=== PATIENT | female | born 1955 | race Caucasian/White ===

== ENCOUNTER 2023-06-12 12:30 | Emergency (ER) | payer MEDICARE, SELFPAY ==
[2023-06-12 13:06] VITALS: BP 117/83; PULSE 76; RESP 16; TEMP 37.6; O2SAT 100
--- NOTE | 2023-06-12 14:12 | ED.URI ---
HPI - URI/Sore Throat General Chief Complaint: Upper Respiratory Infection Stated Complaint: headache,sore throat Time Seen by Provider: 06/12/23 14:13 Source: patient and RN notes reviewed Mode of arrival: ambulatory Limitations: no limitations History of Present Illness HPI Narrative: 68-year-old female presented for complaint of headache, body aches, sinus pressure/congestion, cough, fever/chills. onset 3 days. Has not eaten since yesterday. But denies abdominal pain. Denies sob, wheezing, n/v/d. not taking anything for symptoms. States all symptoms are flaring up her fibromyalgia and she is requesting an antibiotic. MD elicited complaint: cough Related Data Home Medications Medication Instructions Recorded Confirmed ezetimibe 10 mg tablet 10 mg PO DAILY 06/12/23 06/12/23 meloxicam 15 mg tablet 15 mg PO DAILY 06/12/23 06/12/23 metaxalone 800 mg tablet 800 mg PO DAILY 06/12/23 06/12/23 montelukast 10 mg tablet 10 mg PO DAILY 06/12/23 06/12/23 pantoprazole 40 mg tablet,delayed 40 mg PO DAILY 06/12/23 06/12/23 release quetiapine 50 mg tablet 50 mg PO DAILY 06/12/23 06/12/23 sertraline 50 mg tablet 50 mg PO DAILY 06/12/23 06/12/23 Allergies Allergy/AdvReac Type Severity Reaction Status Date / Time indomethacin [From Indocin] Allergy Unknown Unknown Verified 06/12/23 14:26 Review of Systems Review of Systems: CONSTITUTIONAL: Endorses malaise, denies chills, sweats, fever EYES: Denies visual changes, redness, or discharge ENT: Reports rhinorrhea, congestion,denies otalgia, sore throat CARDIOVASCULAR: Denies chest pain, palpitations, edema RESPIRATORY: Reports cough, post nasal drainage. Denies dyspnea GASTROINTESTINAL: Denies abdominal pain, nausea, vomiting, diarrhea SKIN: Denies rash or itching MUSCULOSKELETAL: Endorses myalgia NEUROLOGIC: Endorses headache [facility] Past Medical History Medical History (Updated 06/12/23 @ 14:55 by Raeann Hernandez APRN) Anxiety Depression Fibromyalgia GERD (gastroesophageal reflux disease) Seasonal allergies Exam Narrative: GENERAL: mildly Ill-appearing, nontoxic no acute distress. EYES: conjunctivae clear ENT: Mucous membranes moist. TM pearly ge with dull light reflex bilaterally; no tragal tenderness. Oropharynx not erythematous without lesions or exudate NECK: Supple. No lymphadenopathy CHEST: Clear to auscultation, breath sounds equal. No wheezing, rhonchi, rales, or stridor. No respiratory distress, speaks in full sentences. HEART: Regular rate and rhythm. No murmur heard. SKIN: Warm, dry, no rash. NEURO: Alert and oriented x3. PSYCH: Normal mood and affect Course Course Emergency Course: Patient is aware of diagnosis, understands and agrees to treatment plan. Anticipatory guidance given. Patient agrees to follow-up as directed and is aware of reasons to seek care at the emergency department. Portions of this record may have been created with voice recognition software Level of Care: Express Care Visit Vital Signs Vital signs: Vital Signs Temperature 99.6 F 06/12/23 13:06 Pulse Rate 76 06/12/23 13:06 Respiratory Rate 16 06/12/23 13:06 Blood Pressure 117/83 06/12/23 13:06 Pulse Oximetry 100 06/12/23 13:06 Oxygen Delivery Room Air 06/12/23 13:06 Temperature 99.6 F 06/12/23 13:06 Pulse Rate 76 06/12/23 13:06 Respiratory Rate 16 06/12/23 13:06 Blood Pressure 117/83 06/12/23 13:06 Pulse Oximetry 100 06/12/23 13:06 Oxygen Delivery Room Air 06/12/23 13:06 reviewed MDM - URI/Sore Throat MDM Narrative Medical decision making narrative: negative COVID and flu Results reviewed with patient. Discussed physical exam findings. She is advised symptoms are likely viral rx abx to start if symptoms persist or worsen after 7-10 days. Advised supportive measures and signs/symptoms to go to the ER. Pt is appropriate for outpt treatment and f/u. Differential Diagnosis Differential diagnosis: Likely upp
== END 2023-06-12 14:57 | disposition home or self-care (01) ==
PROVIDERS: Emergency Provider Nurse Practitioner Family; PCP Family Medicine
DX: J06.9 Acute upper respiratory infection, unspecified (principal); F41.9 Anxiety disorder, unspecified; F32.A Depression, unspecified; Z79.899 Other long term (current) drug therapy; Z79.1 Long term (current) use of non-steroidal anti-inflammatories (NSAID); Z20.822 Contact with and (suspected) exposure to COVID-19
CPT/HCPCS: 87426; 87804; 99213; C9803; G0463

== ENCOUNTER 2023-11-11 13:27 | Outpatient (CLI) | payer MEDICARE, SELFPAY ==
[2023-11-11 13:39] LABS: Basophils Absolute Auto 0.1 K/mm3 (0.0-0.1); Basophils Percent Auto 0.7 % (0.2-1.2); Eosinophils Absolute Auto 0.2 K/mm3 (0-0.3); Eosinophils Percent Auto 2.7 % (0-4.4); Hematocrit 40.8 % (37.0-47.0); Hemoglobin 13.3 g/dL (12.0-15.0); Immature Granulocyte Absolute 0.02 K/mm3 (0.00-0.031); Immature Granulocyte Percent A 0.2 % (0-0.5); Lymphocytes Absolute Auto 2.21 K/mm3 (0.9-3.2); Lymphocytes Percent Auto 27.1 % (18.3-44.2); Mean Corpuscular HGB Conc 32.6 g/dl (32-36); Mean Corpuscular Hemoglobin 28.9 pg (26-34); Mean Corpuscular Volume 88.5 fl (80-100); Monocytes Absolute Auto 0.6 K/mm3 (0.1-0.6); Monocytes Percent Auto 7.7 % (2.6-8.5); Neutrophils Percent Auto 61.6 % (45.5-73.1); Platelet Count Result 326 k/mm3 (150-375); Red Blood Count 4.61 M/mm3 (4.2-5.4); Red Cell Distribution Width 13.3 % (11.5-14.5); White Blood Count 8.2 K/mm3 (4.5-10.0)
--- NOTE | 2023-11-11 13:46 | ECG_ITS ---
SEE SCANNED COPY FOR CONFIRMED REPORT MTDD
[2023-11-11 15:05] LABS: Alanine Aminotransferase 23 U/L (6-35); Albumin Level 4.4 g/dL (3.5-5.1); Alkaline Phosphatase 66 U/L (38-126); Anion Gap 10 mmol/L (4-12); Aspartate Amino Transferase 30 U/L (14-36); Bilirubin,Total 0.5 mg/dL (0.2-1.3); Blood Urea Nitrogen 27 mg/dL (7-17); Calcium 9.2 mg/dL (8.4-10.2); Carbon Dioxide 24 mmol/L (22-30); Chloride 107 mmol/L (98-107); Estimated Glomerular Filt Rate > 60; Glucose 124 mg/dL (65-110); Potassium 4.2 mmol/L (3.4-5.0); Sodium 141 mmol/L (137-145)
[2023-11-11 16:26] LABS: Vitamin D 25 Hydroxy 53.2 ng/mL
== END 2023-11-11 13:28 | disposition home or self-care (01) ==
LOC: ANHLAB 13:28
PROVIDERS: PCP Family Medicine; Visit Provider Physician Assistant Medical
DX: R53.83 Other fatigue (principal); E78.2 Mixed hyperlipidemia; E55.9 Vitamin D deficiency, unspecified; F41.9 Anxiety disorder, unspecified
CPT/HCPCS: 36415; 80053; 82306; 84443; 85025; 93005

== ENCOUNTER 2023-12-15 15:32 | Emergency (ER) | payer MEDICARE, SELFPAY ==
--- NOTE | ~2023-12-15 | XR_ITS ---
EXAMINATION: XR chest 2V DATE: 12/15/2023 16:00 INDICATION: Chest pain. TECHNIQUE: Frontal and lateral views of the chest were obtained. COMPARISON: None. FINDINGS: There is no pneumonia, pleural effusion, or pneumothorax. The heart size is normal. IMPRESSION: 1. No acute cardiopulmonary disease. Reviewed, dictated and finalized at location A.
--- NOTE | 2023-12-15 15:33 | ECG_ITS ---
Test Date: 2023-12-15 15:45:16 Measurements Intervals [place] Rate: 65 P: 12 RI: 156 QRS: -1 QRSD: 84 T: 29 QT: 376 QTc: 391 Interpretive Statements SINUS RHYTHM NORMAL ELECTROCARDIOGRAM No previous ECG available for comparison Electronically Signed On 12-16-2023 07:19:51 CDT by Kenan Burdick M.D.
[2023-12-15 16:00] LABS: Basophils Absolute Auto 0.1 K/mm3 (0.0-0.1); Basophils Percent Auto 0.7 % (0.2-1.2); Eosinophils Absolute Auto 0.2 K/mm3 (0-0.3); Eosinophils Percent Auto 2.2 % (0-4.4); Hematocrit 44.1 % (37.0-47.0); Hemoglobin 14.6 g/dL (12.0-15.0); Immature Granulocyte Absolute 0.03 K/mm3 (0.00-0.031); Immature Granulocyte Percent A 0.4 % (0-0.5); Lymphocytes Absolute Auto 1.87 K/mm3 (0.9-3.2); Lymphocytes Percent Auto 21.9 % (18.3-44.2); Mean Corpuscular HGB Conc 33.1 g/dl (32-36); Mean Corpuscular Hemoglobin 29.1 pg (26-34); Mean Platelet Volume 10.1 fl (7.4-10.4); Monocytes Absolute Auto 0.6 K/mm3 (0.1-0.6); Monocytes Percent Auto 6.9 % (2.6-8.5); Neutrophils Absolute Auto 5.8 K/mm3 (1.3-6.7); Neutrophils Percent Auto 67.9 % (45.5-73.1); Platelet Count Result 371 k/mm3 (150-375); Red Blood Count 5.01 M/mm3 (4.2-5.4); Red Cell Distribution Width 12.9 % (11.5-14.5); White Blood Count 8.5 K/mm3 (4.5-10.0)
[2023-12-15 16:08] VITALS: BP 148/110; PULSE 60; RESP 20; TEMP 36.1; O2SAT 97
[2023-12-15 16:10] LABS: Alanine Aminotransferase 26 U/L (6-35); Albumin Level 4.7 g/dL (3.5-5.1); Alkaline Phosphatase 84 U/L (38-126); Anion Gap 7 mmol/L (4-12); Aspartate Amino Transferase 27 U/L (14-36); Bilirubin,Total 0.5 mg/dL (0.2-1.3); Blood Urea Nitrogen 17 mg/dL (7-17); Calcium 9.9 mg/dL (8.4-10.2); Carbon Dioxide 24 mmol/L (22-30); Chloride 107 mmol/L (98-107); Estimated Glomerular Filt Rate > 60; Glucose 101 mg/dL (65-110); Lipase 111 U/L (23-300); Potassium 3.9 mmol/L (3.4-5.0); Sodium 138 mmol/L (137-145)
[2023-12-15 16:11] LABS: Partial Thromboplastin Time 25.9 Seconds (22.3-36.8); Prothrombin Time 13.6 Seconds (11.1-14.7)
[2023-12-15 16:21] LABS: Troponin I < 0.012 ng/mL (0.000-0.034)
--- NOTE | 2023-12-15 19:00 | ECG_ITS ---
Test Date: 2023-12-15 19:00:36 Measurements Intervals [place] Rate: 60 P: 9 CO: 170 QRS: -1 QRSD: 80 T: 16 QT: 392 QTc: 394 Interpretive Statements SINUS RHYTHM NORMAL ELECTROCARDIOGRAM Compared to ECG 12/15/2023 15:45:16 No significant changes Electronically Signed On 12-16-2023 15:42:42 CDT by Kenan Burdick M.D.
--- NOTE | 2023-12-15 19:12 | ED.ARRPALP ---
HPI - Arrhythmia/Palpitations General Chief Complaint: Arrhythmia/Palpitations Stated Complaint: palpitations Time Seen by Provider: 12/15/23 19:11 History of Present Illness HPI narrative: Patient is a 68-year-old female who presents to the emergency department this evening with multiple complaints. Patient states that she has been having palpitations for the past 3 weeks adverse since stopping her anti depressant medication. Patient states that the palpitations have improved in the past 3 weeks but she is still having intermittent headaches, nausea, upset stomach, loss of appetite and insomnia. Patient saw her primary care physician this morning and she was informed that all of these are side effects to her stopping her antidepressant medication and should get better with time. Despite this, patient still wanted a 2nd opinion and wanted to make sure nothing else was wrong so she decided to come to the emergency department for further evaluation. She is currently denying any chest pain or shortness of breath, any focal weakness, numbness and tingling. No additional symptoms or concerns at this time. Related Data Home Medications Medication Instructions Recorded Confirmed ezetimibe 10 mg tablet 10 mg PO DAILY 06/12/23 11/25/23 meloxicam 15 mg tablet 15 mg PO DAILY 06/12/23 11/25/23 metaxalone 800 mg tablet 800 mg PO DAILY 06/12/23 11/25/23 quetiapine 50 mg tablet 50 mg PO DAILY 06/12/23 11/25/23 Allergies Allergy/AdvReac Type Severity Reaction Status Date / Time indomethacin [From Indocin] Allergy Unknown Unknown Verified 12/15/23 16:12 duloxetine AdvReac Severe Hallucinati Verified 12/15/23 16:12 ng Review of Systems Review of Systems: All systems are reviewed and are negative unless stated otherwise in the HPI. [facility] Past Medical History Medical History Anxiety Depression Fibromyalgia GERD (gastroesophageal reflux disease) Mixed hyperlipidemia Seasonal allergies Surgical History Surgical History History of knee replacement Social History Social History Smoking status: Never smoker Exam Narrative: General: Alert, awake, afebrile, in no acute distress. HEENT: PERRL, no rhinorrhea, no post nasal drip, oropharynx clear. Cardiovascular: Regular rate and rhythm, no murmurs, rubs or gallops, no peripheral edema. Respiratory: Clear to auscultation bilaterally, no tachypnea, no wheezing, no rhonchi, no rubs, no respiratory distress. Abdomen: Soft, nontender, nondistended, no rebound, no guarding, no peritoneal signs. Musculoskeletal: No joint swelling or deformity, normal muscle tone. Skin: No rashes or petechia, no signs of infection. Neurological: Alert and oriented to person, place, and time. Follows all commands. No focal deficits, speech is clear and fluent. Course Vital Signs Vital signs: Vital Signs Temperature 96.9 F L 12/15/23 16:08 Pulse Rate 60 12/15/23 16:08 Respiratory Rate 20 12/15/23 16:08 Blood Pressure 148/110 H 12/15/23 16:08 Pulse Oximetry 97 12/15/23 16:08 Oxygen Delivery Room Air 12/15/23 16:08 Temperature 96.9 F L 12/15/23 16:08 Pulse Rate 60 12/15/23 16:08 Respiratory Rate 20 12/15/23 16:08 Blood Pressure 148/110 H 12/15/23 16:08 Pulse Oximetry 97 12/15/23 16:08 Oxygen Delivery Room Air 12/15/23 16:08 MDM - Arrhythmia/Palpitations MDM Narrative Medical decision making narrative: The patient was evaluated by myself in the emergency department. History is obtained from patient who is an independent historian and physical exam was performed. External medical records were reviewed at this time. IV was established and pertinent tests were ordered. EKG was obtained which revealed sinus rhythm rate of 65 beats per minute. No ST changes, T wave inversions or hosea
[2023-12-15 19:27] LABS: Troponin I < 0.012 ng/mL (0.000-0.034)
[2023-12-15 20:00] VITALS: BP 157/76; PULSE 89; RESP 18; O2SAT 98
== END 2023-12-15 20:04 | disposition home or self-care (01) ==
PROVIDERS: Emergency Medicine; Emergency Provider Emergency Medicine; PCP Family Medicine
DX: F41.9 Anxiety disorder, unspecified (principal); E78.2 Mixed hyperlipidemia; F32.A Depression, unspecified; Z79.899 Other long term (current) drug therapy
CPT/HCPCS: 36415; 71046; 80053; 83690; 84484; 85025; 85610; 85730; 93005; 99284

== ENCOUNTER 2025-01-02 14:32 | Outpatient (CLI) | payer MEDICARE, SELFPAY ==
--- OUTSIDE RECORDS SUMMARY | 2025-01-02 14:37 | XMS_ITS | Encounter Summary ---
Author Organization [facility] Address [address] [place] [address] Care Team Providers Care Band Top Maker Name Role Phone Radha Vanegas MD Primary Care Provider Encounter Details Date Type Department Care Team (Late st Contact Info) Description 09/03/2024 [employer] Message [facility] Patient Accounts [address] [place] [address] [facility] Social History Tobacco Use Types Packs/Day Years Used Date Smoking Tobacco: Never Smokeless Tobacco: Never Comments:na Alcohol Use Standard Drinks/Week Comments Not Currently 0 (1 standard drink = 0.6 oz pur e alcohol) OASIS D0700: Social Isolation Answer Da te Recorded Frequency of experiencing loneliness or isolatio n Often 05/23/2024 OASIS A1250: Transportation Answer Date Recorded Lack of Transportation (Medical) No 05/23/2024 Lack of Transportation (Non-Medical) No 05/23/2024 Patient Unable or Declines to Respond No 05/23/2024 OASIS B1300: Health Literacy Answer Cameron e Recorded Frequency of needing help to read materials from doctor or pharmacy Never 05/23/2024 PHQ-2 Answer Date Recorded Patient Health Questionnaire-2 Score 1 05/25/2024 Comments No Sex and Gender Information Value Date Recorded Sex Assigned at Female 07/03/2024 1:23 PM [employer] Legal Sex Female 5:45 PM CDT Gender Identity Female 10/03/2024 9:02 AM CDT Sexual Orientation Straight 10/03/2024 9: 02 AM CDT documented as of this encounter Functional Status * RETIRED Are you deaf or do you have serious difficulty hearing Answer Date of Assessment Author Status No 07/13/2022 2:00 PM INDUSTRIAL HYGENIST Activ e * RETIRED Are you blind or do you have serious difficulty seeing, even when wearing glasses? Answer Date of Assessment Author Status No 07/13/2022 2:00 PM INDUSTRIAL HYGENIST Activ e * Do you have serious difficulty walking or climbing stairs? Answer Date of Assessment Author Status No 07/13/2022 2:00 PM Unique Orellana RN Active * Do you have difficulty dressing or bathing? Answer Date of Assessment Author Status No 07/13/2022 2:00 PM Unique Orellana RN Active * Because of a physical, mental, or emotional condition, do you have difficulty doing errands alone such as visiting a doctor's office or shopping? Answer Date of Assessment Author Status No 07/13/2022 2:00 PM Unique Orellana RN Active documented as of this encounter Mental Status * Because of a physical, mental, or emotional condition, do you have serious difficulty concentrating, remembering, or making decisions? Answer Entry Date Author Status No 07/13/2022 2:00 PM Unique Orellana RN Active documented in this encounter Plan of Treatment Upcoming Encounters Date Type Department Care Team (Late st Contact Info) Description 01/17/2025 4:00 PM CDT Office Visit [facility] [address] [place] [address] [place] [address] [place] [address] documented as of this encounter Visit Diagnoses Not on filedocumented in this encounter Additional Health Concerns Infection Onset Date Last Indicated Resolved Time 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 09/17/2024 09/17/2024 Assessment Noted Time PHQ-9 Depression Total Score: 1 05/25/20 24 2:28 PM INDUSTRIAL HYGENIST documented as of this encounter Care Teams Band Top Maker Relationship Specialty Start Date End Date Radha Vanegas MD [address] [place] [address] PCP - General FAMILY PRACTICE 11/01/23 documented as of this encounter
--- OUTSIDE RECORDS SUMMARY | 2025-01-02 14:37 | XMS_ITS | Clinical Summary ---
Author Organization [facility] Address [address] [place] [address] Care Team Providers Care Snuff Drier Name Role Phone Radha Vanegas MD Primary Care Provider [phone] Allergies Active Allergy Reactions Criticality Noted Date Comments Duloxetine Other (see comment),Hallucinations Low 11/18/2022 Mental status changes Erythromycin GI Upset,Nausea and Vomiting,Vomiting Low 09/28/2012 Reaction: Vomiting, Sulfa Antibiotics Myalgias Medium 12/04/2015 Medications * This document contains information received from the source organization and may not represent a complete record from that organization. ezetimibe (ZETIA) 10 MG tabletIndication s:Blood Cholesterol Abnormal Take 1 tablet (10 mg total) by mouth daily. Indications: Blood Cholesterol Abnormal 2 Active metaxalone (SKELAXIN) 800 MG tabletIndication s:Muscle Spasm Take 1 tablet (800 mg total) by mouth 3 (three) times daily as needed for Pain. Indications: Muscle Spasm 2 Active QUEtiapine (SEROQUEL) 25 MG tabletIndication s:Severe Depression Take 0.5 tablets (12.5 mg total) by mouth nightly at bedtime. Indications: Severe Depression Active Cholecalciferol (VITAMIN D-3) 25 MCG (1000 UT) CapIndications:O steoarthritis Take 1 tablet by mouth 2 (two) times daily. Indications: Joint Damage causing Pain and Loss of Function Active venlafaxine XR (EFFEXOR-XR) 150 MG 24 hr capsule Take 1 capsule (150 mg total) by mouth daily. 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 We'll see her back in six weeks for a repeat evaluation. Sooner if she's having any issues. S/P total knee arthroplasty 09/19/2024 Chronic pain of right knee 05/27/2024 Atherosclerosis of aorta 10/13/2023 Overview (09/18/2024): 07.06.2022 Chest XR Atherosclerotic aorta PVC's (premature ventricular contractions) 09/19 Severe episode of recurrent major depressive disorder, without psychotic features (CMS/HCC HHS/HCC) 12/12/2022 Major depressive disorder wi th current active episode, unspecified depression episode severity, unspecified whether recurrent 12/10/2022 Labial lesion 10/15/2022 Overview (09/18/2024): Last Assessment & Plan: Benign appearing papules present on bilateral labia, recommended further evaluation with gynecology. Patient will call to schedule follow up with Picture Frames Inspector, referral placed. Status post total knee replacement, left 023 Overview (09/18/2024): 07/13/2022 07/13/2022 Last Assessment & Plan: Our recommendation at this time is gradually increase her activities as tolerated. We'll give her position and directed exercises. At her request, we'll see her back as needed. Assessment & Plan (10/18/2022 5:20 PM CDT): Our recommendation at this time is gradually increase her activities as tolerated. We'll give her position and directed exercises. At her request, we'll see her back as needed. Assessment & Plan (08/23/2022 12:33 PM LOOM CHECKER): The patient will follow up in 3 months. She will finish up physical therapy 08/24/2022. Assessment & Plan (07/26/2022 12:35 PM LOOM CHECKER): The patient is encouraged to use Vit E oil, cocoa butter, and/or scar cream to assist in healing and mobility. Patient will continue pain medication as needed. She will start going to outpatient physical therapy next week. The patient will follow-up in 4 weeks with an XR. BMI 26.0-26.9,adult 06/11/2022 Assessment & Plan (06/11/2022 8:38 PM LOOM CHECKER): We discussed the adverse effects of weight on osteoarthritis. For every 1 pound loss, 4 to 6 pounds of stress is relieved from the knee, slightly more at the ankle and slightly less at the hip. Primary osteoarthritis of right knee 06/08/2022 Overview (09/18/2024): Added automatically from request for surgery [id number] Last Assessment & Plan: Scheduled for surgery with Dr. Magaña 07/13/22. Added automatically from request for surgery [id number] Last Assessment & Plan: We discussed the risks, benefits and alternatives. The only thing proven to slow the progression of osteoarthritis is weight loss. Every pound lost relieves 4 to 6 pounds of stress across the knee. We discussed unloading braces. Formal physical therapy to help with flexibility, mobility and strength. We discussed TENS units. Nonsteroidal anti-inflammatories as well as Tylenol and pain medication and their side effects. We discussed steroid versus Visco supplement injection. We discussed eventual total knee arthroplasty. Failed nonsteroidal anti-inflammatories Failed steroid injection Failed viscosupplementation Failed stem cells Failed PRP Failed physician directed exercise Pain interfering with activities of daily living We discussed standard instrumentation, patient specific cutting blocks and Gato robot assisted total knee arthroplasty. Going over the risks, benefits and alternatives patient is scheduled for Gato robot assisted knee arthroplasty left 07/13/2021 Added automatically from request for surgery [id number] Assessment & Plan (05/27/2024 10:29 AM LOOM CHECKER): We discussed the risks, benefits, and alternatives. The only thing proven to slow the progression of osteoarthritis is weight loss. Every pound lost relieves 4 to 6 pounds of stress across the knee. We discussed unloading braces. Formal physical therapy to help with flexibility, mobility, and strength. We discussed TENS units. Nonsteroidal anti-inflammatories as well as Tylenol and pain medication and their side effects. We discussed steroid versus Visco supplement injection. We discussed eventual total knee arthroplasty. Failure of nonoperative treatment. Recommendation at this time, her total knee on the left is doing quite well. She is wanting to proceed with Gato robot-assisted total knee arthroplasty on the right. We'll try to get her set up. She had her steroid injection on 04/16/24, so she would like to proceed on 07/17/24. Assessment & Plan (04/17/2024 5:11 PM CDT): We discussed the risks, benefits, and alternatives. The only thing proven to slow the progression of osteoarthritis is weight loss. Every pound lost relieves 4 to 6 pounds of stress across the knee. We discussed unloading braces. Formal physical therapy to help with flexibility, mobility, and strength. We discussed TENS units. Nonsteroidal anti-inflammatories as well as Tylenol and pain medication and their side effects. We discussed steroid versus Visco supplement injection. We discussed eventual total knee arthroplasty. Recommendation at this time, a steroid was injected into the right knee. She is not ready for a total knee arthroplasty at this point in time. Get her pre-approved for a viscosupplement. We'll see her back after the approval for the viscosupplement. Primary osteoarthritis of left knee 06/08/2022 Overview (06/08/2022): Added automatically from request for surgery [id number] Assessment & Plan (06/11/2022 8:37 PM LOOM CHECKER): We discussed the risks, benefits and alternatives. The only thing proven to slow the progression of osteoarthritis is weight loss. Every pound lost relieves 4 to 6 pounds of stress across the knee. We discussed unloading braces. Formal physical therapy to help with flexibility, mobility and strength. We discussed TENS units. Nonsteroidal anti-inflammatories as well as Tylenol and pain medication and their side effects. We discussed steroid versus Visco supplement injection. We discussed eventual total knee arthroplasty. Failed nonsteroidal anti-inflammatories Failed steroid injection Failed viscosupplementation Failed stem cells Failed PRP Failed physician directed exercise Pain interfering with activities of daily living We discussed standard instrumentation, patient specific cutting blocks and Gato robot assisted total knee arthroplasty. Going over the risks, benefits and alternatives patient is scheduled for Gato robot assisted knee arthroplasty left 07/13/2021 Hypoglycemia 06/08/2022 Overview (06/08/2022): Added automatically from request for surgery [id number] Allergies 06/08/2022 Overview (09/18/2024): Added automatically from request for surgery [id number] Added automatically from request for surgery [id number] Bilateral primary osteoarthritis of knee 021 Overview (09/18/2024): Last Assessment & Plan: Continues meloxicam use. Following with ortho for injections as needed. Amaurosis fugax of left eye 08/03/2018 Subjective visual disturbance 08/03/2018 Visual problems 08/01/2018 Scaly patch rash 07/12/2018 Overview (09/18/2024): Last Assessment & Plan: Sporadic small scaly dry red patches on various parts of body since Summer (7 months). They do not itch, not painful. Denies fever, joint pain. Does have hx of Fibromyalgia. Has been using nystatin/kenalog cream with improvement but would like to know why they keep coming up. Small single macular and papular Fine scaly lesion with rough surface-no pain or tenderness, do not itch-random areas on her body, different sizes from 1-2 cm circular and different shades of pink to red on trunk, lower extremities- only found 5-6 of them on her body. 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 She did state it does help but the lesions keep randomly appear and she is frustrated with it. Can try OTC Topical antifungal Selenium sulfide 1% (Selsun Blue and Ketoconazole or Selsun 2.5 % lotion Will try oral Fluconazole Irritable bowel syndrome with diarrhea 6 De Quervain's tenosynovitis 03/17/2015 Fibromyalgia 02/20/2015 Overview (06/08/2022): Added automatically from request for surgery [id number] Temporomandibular joint disorder 01/21/2012 Mixed hyperlipidemia 09/21/2011 Primary localized osteoarthrosis, lower leg 07/22 Moderate episode of recurrent major depressive d isorder 03/26/2011 Disorder of bone and cartilage 11/29/2008 Sicca syndrome (HHS/HCC) 05/30/2008 Actinic keratosis 07/13/2007 Gastroesophageal reflux disease without esophagi tis 07/13/2007 Bunion 03/06/2007 Migraine with aura and witho ut status migrainosus, not intractable 09/06/2006 Resolved Problems Problem Noted Date Diagnosed Date Resolved Date Encounter for preoperative e xamination for general surgical procedure 07/01/2022 09/24/2024 Screening for hyperlipidemia 04/15/2017 09/24/2024 Encounters Date Type Department Care Team Description 11/28/2024 Scan HEALTH INFO SRVCS Scanned, Doc Med Group 11/15/2024 1:40 PM CDT [facility] [id number] [place] [id number] Esteban Magaña DO Postop Followup (Right TKR 09/18/24) 11/15/2024 Travel 11/13/2024 Scan MG HEALTH INFO SRVCS Scanned, Doc Med Group 10/22/2024 Scan MG HEALTH INFO SRVCS Scanned, Doc Med Group 10/16/2024 Telephone [facility] [id number] [place] [phone] Jase Schaeffer NP Question (Pt. called to have us send her PT referral to [facility], Pt has a PT appointment for 10/22/24 with M, Per pt. M wants her to bring in the referral but it was sent over, explained the the appointment couldn't have been made without having the referral, and that we had sent the referral to [facility], Pt. Extremely angry and cussing at staff. ) 10/15/2024 Telephone [facility] Orthopedic [facility] [address] [place] [address] Esteban Magaña, DO Question 10/11/2024 Telephone [facility] [address] [place] [address] Jase Schaeffer, POCKET SETTER LOCKSTITCH Information 10/11/2024 Telephone [facility] Orthopedic [facility] [address] [place] [phone] Esteban Magaña, DO Referral 10/11/2024 Telephone [facility] Orthopedic Surgery [facility] [address] [place] [phone] Esteban Magaña, DO Orders 10/10/2024 Telephone [facility] Orthopedic Surgery [facility] [address] [place] [address] Esteban Magaña, DO Information 10/10/2024 Telephone [facility] Orthopedic Surgery [facility] [address] [place] [id number] Esteban Magaña, DO Question 10/09/2024 Telephone [facility] Orthopedic [facility] [address] [place] [address] Esteban Magaña, DO Physical Therapy ([facility] Called to let us known she is denied for home health PT due to being at capacity for that insurance) 10/05/2024 Telephone [facility] Orthopedic Surgery [facility] [address] [place] [phone] Esteban Magaña, DO Question 10/03/2024 8:40 AM CDT Office [facility] [address] [place] [address] Jase Schaeffer, PER Postop Followup (Right TKR 09/18/24) 10/03/[address] [place] [address] [place] [address] Jase Schaeffer NP Advise 10/03/2024 Travel from Last 3 Months Family History Medical History Relation Comments Diabetes Father ? Relation Status Comments Father Alive Maternal Grandfather Maternal Grandmother Paternal Grandfather Paternal Grandmother Social History Tobacco Use Types Packs/Day Years Used Date Smoking Tobacco: Never Smokeless Tobacco: Never Tobacco Cessation:Counseling Given: No Comments:na Alcohol Use Standard Drinks/Week Comments Not [...] materials from doctor or pharmacy Never 05/23/2024 [facility] Utilities Answer Date Recorded In the past 12 months has [facility] [employer], gas, oil, or water [employer] threatened to shut off services in your home? No 09/20/2024 Humiliation, Afraid, Rape, and Kick questionnair e Answer Date Recorded Within the last year, have y ou been afraid of your partner or ex-partner? No 09/20/2024 Within the last year, have y ou been humiliated or emotionally abused in other ways by your partner or ex-partner? No Within the last year, have y ou been kicked, hit, slapped, or otherwise physically hurt by your partner or ex-partner? No 09/20/2024 Within the last year, have y ou been raped or forced to have any kind of sexual activity by your partner or ex-partner? No 09/20/2024 Overall Financial Resource Strain (CARDIA) Answe r Date Recorded How hard is it for you to pa y for the very basics like food, housing, medical care, and heating? Not hard at all 09/20/2024 PHQ-2 Answer Date Recorded Patient Health Questionnaire-2 Score 1 10/03/2024 Hunger Vital Sign Answer Date Recorded Within the past 12 months, y ou worried that your food would run out before you got the money to buy more. Never true 09/21/19 25 Within the past 12 months, t he food you bought just didn't last and you didn't have money to get more. Never true 09/20/2024 PRAPARE - Transportation Answer Date Re corded In the past 12 months, has l ack of transportation kept you from medical appointments or from getting medications? No 08/2024 In the past 12 months, has l ack of transportation kept you from meetings, work, or from getting things needed for daily living? No 09/20/2024 Housing Stability Vital Sign Answer Cameron e Recorded In the last 12 months, was t here a time when you were not able to pay the mortgage or rent on time? No 09/20/2024 In the past 12 months, how m any times have you moved where you were living? 0 09/20/2024 At any time in the past 12 m [facility], were you homeless or living in a retirement (including now)? No 09/20/2024 Comments No Sex and Gender Information Value Date Recorded Sex Assigned at Female 07/03/2024 1:23 PM LOOM CHECKER Legal Sex Female 5:45 PM CDT Gender Identity Female 10/03/2024 9:02 AM CDT Sexual Orientation Straight 10/03/2024 9: 02 AM CDT Last Filed Vital Signs Vital Sign Reading Time Taken Comments Blood Pressure 134/78 11/15/2024 2:02 PM CDT Pulse 85 11/15/2024 2:02 PM CDT Temperature 36 C (96.8 F) 11/15/2024 2:02 PM CDT Respiratory Rate 18 09/20/2024 4:25 PM CDT Oxygen Saturation 96% 11/15/2024 2:02 PM CDT Inhaled Oxygen Concentration - - Weight 68.8 kg (151 lb 9.6 oz) 11/15/2024 2:02 P M CDT Height 160 cm (5' 3) 11/15/2024 2:02 PM CDT Body Mass Index 26.85 11/15/2024 2:02 PM CDT Plan of Treatment Upcoming Encounters Date Type Department Care Team (Late st Contact Info) Description 01/17/2025 4:00 PM CDT Office Visit [facility] [address] [place] [address] [place] [phone] [place] [address] Health Maintenance Due Date Last Done Comments ASCVD LDL 1954 ASCVD Statin 1954 Colorectal Cancer Screening Colonoscopy (10 Years) 1954 Hepatitis C 1972 Zoster Vaccines (1 of 2) 2004 RSV Immunization or 60+ Years (1 - Risk 60-74 years 1-dose series) 2014 DTaP, Tdap and Td Vaccines (2 - Td or Tdap) 03/29/2022 03/29/2012 COVID-19 Vaccine (2 - season) 2024 08/22/2020 Mammogram Screening 11/02/2025 11/03/2023, 04/21/2016, 11/13/2013 Pneumococcal Vaccine: 50+ Years Completed 03/23/2021, 07/13/2019 Dexa Scan (General) Completed 07/06/2022, 07/06/2022, 11/14/2013, Additional history exists PHQ-2 (Physician Lime) Completed 10/03/2024 Meningococcal B Vaccine Aged Out No l onger eligible based on patient's age to complete this topic Meningococcal Vaccine Aged Out No devon mal eligible based on patient's age to complete this topic RSV Immunizations Under 20 Months Aged Out No longer eligible based on patient's age to complete this topic Goals Goal Patient Goal Type Associated Problems Recent Progress Patient-Stated? Author Family - family caregiver with be involved in care transitions and discharge planning Lifestyle No Martina Saab, RN Interventions Community Resource Recommendations Community Resource Services Recommended Domains Addressed Status Status Reason/Outcome Date/Time [facility] Financial Assistance Financial Resource Strain 09/18/2024 2:05 PM CDT [facility] Financial Assistance Financial Resource Strain 09/18/2024 2:05 PM CDT [facility] Financial Assistance Financial Resource Strain 09/18/2024 2:05 PM CDT Social Security Office Financial Assistance Financial Resource Strain 09/18/2024 2:05 PM CDT Social Security Office Financial Assistance Financial Resource Strain 09/18/2024 2:05 PM CDT from Last 12 Months Medical Devices Implanted Type Area Track Repair Supervisor Device Identifier Shelf Expiration Date Model / Serial / Lot Cement Full Dose - [id number] Implanted:Qty : 1 on 07/13/2022 by Esteban Magaña DO at [facility] Cement Implant [employer] [id number] 11/17/2024 6191-1-0 01 / / [id number] Component Femoral 3 Knee Left Cruciate Retain Cement Triathlon Sterile Latex Free - [id number] Implanted:Qty : 1 on 07/13/2022 by Esteban Magaña DO at [facility] Knee Components [employer] [id number] 04/26/2026 5510-F-3 01 / / [id number] Plate Johnny Tibal Base Size 3 - [id number] Implanted:Qty : 1 on 07/13/2022 by Esteban Magaña DO at [facility] Knee Components [employer] [id number] 03/07/2027 5520-B-3 00 / / [id number] Baseplate Tibial Triathlon 3 Knee Tritanium - [id number] Implanted:Qty : 1 on 09/18/2024 by Esteban Magaña DO at [facility] Knee Components Right: Knee [employer] [id number] 07/01/2029 5536-B-3 00 / / [id number] Component Femoral 4 Knee Right Cruciate Retain Bead Triathlon Pa Sterile Latex Free - [id number] Implanted:Qty : 1 on 09/18/2024 by Esteban Magaña DO at [facility] Knee Components Right: Knee [employer] [id number] 07/20/2029 5517-F-4 02 / / [id number] Triathlon Tritanium Asymmetric Patella Implanted:Qty : 1 on 09/18/2024 by Esteban Magaña DO at [facility] Knee Components Right: Knee [employer] [id number] 05/01/2029 5552-L-3 20 / / [id number] Triathlon X3 Tibial Bearing Insert -Cs Implanted:Qty : 1 on 09/18/2024 by Esteban Magaña DO at [facility] Knee Components Right: Knee [employer] [id number] 04/23/2029 5531-G-3 09-E / / [id number] Pump Pain On-Q 400ml - [id number] Implanted:Qty : 1 on 07/13/2022 by Esteban Magaña DO at [facility] Pump [employer] 10/18/2024 CB004 / / [id number] Triathlon Asymmetric X3 Patella Implanted:Qty : 1 on 07/13/2022 by Esteban Magaña DO at [facility] [id number] 03/13/2027 551-G-29 9-E / / [id number] [place] Tibial Bearing Insert Implanted:Qty : 1 on 07/13/2022 by Esteban Magaña DO at [facility] [employer] [id number] 02/02/2027 5531-G-3 09-E / / [id number] Explanted Type Area Track Repair Supervisor Device Identifier Shelf Expiration Date Model / Serial / Lot Pin [place] Bone Gato 140 X 4 - [id number] Explanted:Qty: 1 on 07/13/2022 by Esteban Magaña DO at [facility] Pin [employer] [id number] / / Pin Johnny Bone Gato 110 X 4 - [id number] Explanted:Qty: 1 on 07/13/2022 by Esteban Magaña DO at [facility] Pin [employer] [id number] / / Pin [place] Bone Gato 140 X 4 - [id number] Explanted:Qty: 1 on 09/18/2024 by Esteban Magaña DO at [facility] Pin Right: Knee [employer] [id number] 06/29/2029 [id number]- / / [id number] Pin [place] Bone Gato 110 X 4 - [id number] Explanted:Qty: 1 on 09/18/2024 by Esteban Magaña DO at [facility] Pin Right: Knee [employer] [id number] 02/02/2029 [id number] / / [id number] Pump Pain On-Q 400ml - [id number] Explanted:Qty: 1 on 09/18/2024 by Esteban Magaña DO at [facility] Pump [employer] [id number] / / Description:Not an implant Procedures Procedure Name Priority Date/Time Associated Diagnosis Comments XR KNEE RT 3V Routine 11/15/2024 1:54 PM CDT S/P total knee replacement not using cement, right from Last 3 Months Results * XR KNEE RT 3V (11/15/2024 1:54 PM CDT) Anatomical Region Laterality Modality Knee Radiographic Donna ging 11/15/2024 3:11 PM CDT Impressions 11/15/2024 3:11 PM CDT IMPRESSION: No acute findings Ordered By: JASE SCHAEFFER Interpreted By: Jose Patton MD, 11/15/2024 3:11 PM Narrative 11/15/2024 3:11 PM CDT 3 VIEWS OF THE RIGHT KNEE Clinical History: Postop Comparison: September 18, 2024 3 views of the right knee demonstrate postsurgical changes of total right knee arthroplasty. The hardware resides in the expected position. There is no evidence of component failure or component loosening. There is no evidence of fracture or dislocation. The surrounding soft tissues appear normal. Procedure Note Jose Patton MD - 11/15/2024 3 VIEWS OF THE RIGHT KNEE Clinical History: Postop Comparison: September 18, 2024 3 views of the right knee demonstrate postsurgical changes of total rightknee arthroplasty. The hardware resides in the expected position. There isno evidence of component failure or component loosening. There is noevidence of fracture or dislocation. The surrounding soft tissues appearnormal. IMPRESSION: No acute findings Ordered By: JASE SCHAEFFER Interpreted By: Jose Patton MD, 11/15/2024 3:11 PM us Jase Schaeffer POCKET SETTER LOCKSTITCH [facility] Final Re sult from Last 3 Months Additional Health Concerns Infection Onset Date Last Indicated 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 09/17/2024 09/17/2024 Insurance Advance Directives Documents on File Type Date Recorded Patient Senior Executive Compensation Analyst Expl anation Power of Commercial Review Appraiser * Full Code (Latest Code Status on File) Date Activated Date Inactivated Comments 09/18/2024 12:28 PM 09/20/2024 10:13 PM * DNR Date Activated Date Inactivated Comments 05/08/2024 12:10 PM 07/03/2024 1:28 PM * Full Code Date Activated Date Inactivated Comments 07/18/2022 5:16 PM 12/08/2022 11:09 AM * Full Code Date Activated Date Inactivated Comments 07/13/2022 1:01 PM 07/16/2022 5:12 PM Care Teams Snuff Drier Relationship Specialty Start Date End Date Radha Vanegas MD [address] [facility] [place] [address] PCP - General FAMILY PRACTICE 11/01/23
--- OUTSIDE RECORDS SUMMARY | 2025-01-02 14:37 | XMS_ITS | Clinical Summary ---
Author Organization [facility] Address [address] [place] [address] Care Team Providers Care Item Processing Clerk Name Role Phone Cristiane Parmar DO Primary Care Provider [phone]- [phone] Allergies Active Allergy Reactions Criticality Noted Date Comments Diclofenac Rash Low 01/14/2015 Duloxetine Other (See Comments) Low 11/18/2022 Mental status changes Erythromycin Base Nausea and Vomiting Low 3 Ethyl Alcohol Other (See Comments) 09/29/2012 Sulfa (Sulfonamide Antibiotics) Muscle Pain Low 12/04/2015 Medications pantoprazole (PROTONIX) 40 mg Tablet, Delayed Release (E.C.) Take 20 mg by mouth daily. TAKING 20 MG Active ezetimibe (ZETIA) 10 mg tablet ezetimibe 10 mg tablet TAKE 1 TABLET BY MOUTH ONCE DAILY 90 Tablet 3 4 Active metaxalone (SKELAXIN) 800 mg tablet Take 1 Tablet (800 mg) by mouth 3 times daily as needed for Other (See Comment) (fibromyalgia) . 60 Tablet 1 4 Active calcium-vitamin D3 (CALTRATE 600+D) 600 mg-5 mcg (200 unit) Tablet Take 1 Tablet by mouth 2 times daily. Active QUEtiapine (SEROquel) 50 mg tabletIndicatio ns:Moderate episode of recurrent major depressive disorder (CMS/HCC) Take 0.5 Tablets (25 mg) by mouth daily at bedtime. 30 Tablet 4 Active diphenhydramine HCl (ALLERGY MEDICATION ORAL) Take by mouth. Activ e venlafaxine 37.5 mg Extended Release 24 hour tablet Take 75 mg by mouth daily with breakfast. Active celecoxib (CeleBREX) 100 mg capsule Take 1 Capsule by mouth 2 times daily. Active traMADoL (ULTRAM) 50 mg tablet Take 50 mg by mouth every 4 hours as needed. 4 Active Active Problems Patient Care Coordination No te Formatting of this note migh t be different from the original. AWV 06/11/2020 RH Problem Noted Date Diagnosed Date Atherosclerosis of aorta 10/13/2023 Overview (10/18/2023): 07.06.2022 Chest XR Atherosclerotic aorta Recurrent major depression-severe 12/12/2022 Major depressive disorder with current active ep isode 12/10/2022 Labial lesion 10/15/2022 Overview (10/18/2023): Last Assessment & Plan: Benign appearing papules present on bilateral labia, recommended further evaluation with gynecology. Patient will call to schedule follow up with Supervisor Knitting, referral placed. Status post total knee replacement, left 023 Overview (10/18/2023): 07/13/2022 Last Assessment & Plan: Our recommendation at this time is gradually increase her activities as tolerated. We'll give her position and directed exercises. At her request, we'll see her back as needed. Allergies 06/08/2022 Overview (10/18/2023): Added automatically from request for surgery [id number] Primary osteoarthritis of right knee 06/08/2022 Overview (10/18/2023): Last Assessment & Plan: Scheduled for surgery with Dr. Magaña 07/13/22. Added automatically from request for surgery [id number] Last Assessment & Plan: We discussed the [...] 07/13/2021 Added automatically from request for surgery [id number] Bilateral primary osteoarthritis of knee 021 Overview (10/18/2023): Last Assessment & Plan: Continues meloxicam use. Following with ortho for injections as needed. Amaurosis fugax of left eye 08/03/2018 Subjective visual disturbance 08/03/2018 Visual problems 08/01/2018 Scaly patch rash 07/12/2018 Overview (10/18/2023): Last Assessment & Plan: Sporadic small scaly [...] 2.5 % lotion Will try oral Fluconazole Screening for breast cancer 07/12/2018 Irritable bowel syndrome with diarrhea 6 De Quervain's tenosynovitis 03/17/2015 Fibromyalgia syndrome 02/20/2015 Temporomandibular joint disorders, unspecified 0 01/21/2012 Hyperlipidemia LDL goal <130 09/21/2011 Primary localized osteoarthrosis, lower leg 07/22 Moderate episode of recurrent major depressive d isorder 03/26/2011 Disorder of bone and cartilage, unspecified 11/18 Sicca syndrome 05/30/2008 Actinic keratosis 07/13/2007 Gastroesophageal reflux disease without esophagi tis 07/13/2007 Bunion 03/06/2007 Migraine with aura and witho ut status migrainosus, not intractable 09/06/2006 Resolved Problems Problem Noted Date Diagnosed Date Resolved Date Myalgia and myositis, unspecified 03/29/2012 02/22/2019 Hypoglycemia, unspecified 09/21/2011 Encounters Date Type Department Care Team Description 12/04/2024 External Device Data [facility] ABSTRACTION Provider, Abstract 11/08/2024 External Device Data [facility] ABSTRACTION Provider, Abstract from Last 3 Months Immunizations Immunization Administration Dates Next Due (ADACEL/BOOSTRIX)(10 YR UP) TDAP VACCINE, 0.5ML, IM 03/29/2012 (PREVNAR 13)(6 WKS UP) PNEUM OCOCCAL CONJUGATE (PCV13) 0.5 ML, IM 07/13/2019 INFLUENZA VACCINE HIGH DOSE QUADRIVALENT 65 YR UP PF IM 07/07/2023 INFLUENZA VACCINE QUADRIVALE NT 3 YR UP PF IM 02/20/2015 INFLUENZA VACCINE QUADRIVALE NT 6 MOS UP PF IM 03/31/2020,02/22/2019,05/05/2018,2016 Influenza Seasonal Unspecifi ed Formulation IM 03/29/2012 Influenza Vaccine Quad Split 3+ Yrs Im 03/15/2016 Influenza Vaccine Split 3+ Yrs IM 03/27/2013 Influenza Vaccine Split PF ID 05/21/2014 Family History Medical History Relation Name Comments Dementia Father Abimael Hercules Diabetes Father Abimael Hercules High Cholesterol Father Abimael Hercules Diabetes Mother Negin Espino 90 yrs old (Hea lthy) Migraines Mother Negin Espino Relation Name Status Comments Father Abimael Hercules Alive Mother Negin Espino Alive Social History Tobacco Use Types Packs/Day Years Used Date Smoking Tobacco: Never Smokeless Tobacco: Never Tobacco Cessation:Counseling Given: Not Answered Comments:Never smoked Alcohol Use Standard Drinks/Week Comments No 0 (1 standard drink = 0.6 oz pur e alcohol) Comments No Sex and Gender Information Value Date Recorded Sex Assigned at Not on file Legal Sex Female 3:19 AM TRACKWALKER Gender Identity Not on file Sexual Orientation Not on file Last Filed Vital Signs Vital Sign Reading Time Taken Comments Blood Pressure 118/66 05/07/2024 2:44 PM TRACKWALKER Pulse 84 05/07/2024 2:44 PM TRACKWALKER Temperature 36.9 C (98.4 F) 05/07/2024 2:44 PM TRACKWALKER Respiratory Rate 16 06/16/2023 9:30 AM TRACKWALKER Oxygen Saturation 97% 05/07/2024 2:44 PM TRACKWALKER Inhaled Oxygen Concentration - - Weight 68 kg (150 lb) 05/07/2024 2:44 PM TRACKWALKER Height 160 cm (5' 3) 05/07/2024 2:44 PM TRACKWALKER Body Mass Index 26.57 05/07/2024 2:44 PM TRACKWALKER Plan of Treatment Health Maintenance Due Date Last Done Comments Pre-Diabetes and Diabetes Screening 1955 COLORECTAL CANCER SCREENING (AUTO ORDER) 1999 FIT-DNA Q 3 years 1999 FIT/FOBT Q 1 year 1999 Flex Sig/CT Colonography Q 5 years 1999 ZOSTER VACCINE (1 of 2) 2004 FIT/FOBT Q 1 YEAR (AUTO ORDER) 08/26/2018 08/26/2017 , 07/21/2016 PNEUMOCOCCAL VACCINE 50+ YEA RS (2 of 2 - PCV20 or PCV21) 07/13/2020 07/13/2019 DTAP/TDAP/TD VACCINES (2 - T d or Tdap) 03/29/2022 03/29/2012 Medicare Advantage (MD) Preventative Visit/Annual Wellness Visit 06/20/2024 04/15/2023, 06/11/2020, 11/02/2017 BREAST CANCER SCREENING 11/02/2024 11/03/19 24, 11/03/2023, 04/21/2016, Additional history exists INFLUENZA VACCINE (#1) 2025 4, 03/31/2020, 02/22/2019, Additional history exists FIT/ DNA Q 3 YEARS (AUTO ORDER) 08/08/2025 08/08/2022, 08/07/2022, 01/23/2019 OSTEOPOROSIS SCREENING 07/06/2027 3, 07/06/2022, 11/14/2013 Colorectal Cancer Screening (AUTO ORDER) 08/07/2027 FLEX SIG/CT COLONOGRAPHY Q 5 YEARS (AUTO ORDER) 08/07/2027 08/07/2022, 08/07/2022 COLORECTAL SCREENING 08/27/2027 08/26/2017 (Previously completed), 01/30/2007 (Previously completed) Colorectal Cancer Screening 08/27/2027 RSV VACCINE (60+ or ) (1 - 1-dose 75+ series) 2029 Procedures Procedure Name Priority Date/Time Associated Diagnosis Comments MAMMO 3D FRANCINE SCREEN BILAT W OR WO CAD Routine 11/03/2023 2:07 PM CDT Screening mammogram, encounter for XR DEXA BONE DENSITY AXIAL 1 OR MORE SITES Routine 11/14/2013 from Last 3 Months or Most Recently Relevant to Health Maintenance Results * MAMMO 3D FRANCINE SCREEN BILAT W OR WO CAD (11/03/2023 2:07 PM CDT) Anatomical Region Laterality Modality Breast Bilateral Mammography 11/03/2023 2:07 PM CDT Impressions 11/04/2023 10:04 AM CDT IMPRESSION: Negative bilateral screening mammogram. Recommend routine followup. OVERALL FINAL ASSESSMENT: BI-RADS 1 - Negative DICTATION LOCATION: [facility] 11/04/2023 10:04 AM CDT BILATERAL SCREENING DIGITAL MAMMOGRAMS WITH COMPUTER ASSISTED DIAGNOSIS WITH TOMOGRAPHY DATE: 11/03/2023 2:07 PM HISTORY: Routine screening. COMPARISON: 04/21/2016 TECHNIQUE: A bilateral screening mammogram was performed. Low-dose full-field digital breast tomosynthesis examination was performed with 2D and 3D acquisitions. Examination is read in conjunction with computer aided detection. BREAST COMPOSITION: Scattered fibroglandular densities. FINDINGS: No new masses, suspicious calcifications, or areas of asymmetry or distortion are identified. The images were reviewed using the CAD system. Procedure Note Shellie Acosta MD - 11/04/2023 BILATERAL SCREENING DIGITAL MAMMOGRAMS WITH COMPUTER ASSISTED DIAGNOSIS WITH TOMOGRAPHY DATE: 11/03/2023 2:07 PM HISTORY: Routine screening. COMPARISON: 04/21/2016 TECHNIQUE: A bilateral screening mammogram was performed. Low-dose full-field digital breast tomosynthesis examination was performed with 2D and 3D acquisitions. Examination is read in conjunction with computer aided detection. BREAST COMPOSITION: Scattered fibroglandular densities. FINDINGS: No new masses, suspicious calcifications, or areas of asymmetry or distortion are identified. The images were reviewed using the CAD system. IMPRESSION: Negative bilateral screening mammogram. Recommend routine followup. OVERALL FINAL ASSESSMENT: BI-RADS 1 - Negative DICTATION LOCATION: [facility] Gómez Shukla Jr., MD MAMMO ORDERABLES Final R esult * XR DEXA BONE DENSITY AXIAL 1 OR MORE SITES (11/14/2013) Anatomical Region Laterality Modality Other Abstract Provider DIAGNOSTIC IMAGING ORDERABLES Final Result from Last 3 Months or Most Recently Relevant to Health Maintenance [place] [id number] [facility] Care Teams Item Processing Clerk Relationship Specialty [place] [address] [facility] [address] [place] [id number] PCP - General Family Practice 05/07/24
--- OUTSIDE RECORDS SUMMARY | 2025-01-02 14:37 | XMS_ITS | Patient Health Record ---
Author Organization [facility] Address [address] [place] [address] Care Team Providers Care Services Advisor Name Role Phone Lita Carrasquillo Unavailable [phone] Allergies Allergen (clinical drug ingredient) Drug/Non Drug Allergy documented on EMR Reaction Allergy Type Onset Date Status erythromycin Erythromycin Base Unknown Drug Allergy 2022 Active Reason For Referral No Information Medications Medication SIG (Take, Route, Frequency, Duration) Notes Start Date End Date Status Ezetimibe 10 MG Oral 02/11/2023 Unk nown Venlafaxine HCl ER 37.5 MG 1 capsule wit h food Orally Once a day; Duration: 30 days 12/28/2023 Active Meloxicam 15 MG Oral 02/11/2023 Unk nown QUEtiapine Fumarate 50 MG Oral 02/11/2023 Unknown HYDROcodone-Acetaminophen 5-325 MG Oral 02/11/2023 Unknown Montelukast Sodium 10 MG Oral 02/11/2023 Unknown Metaxalone 800 MG Oral 02/11/2023 U nknown Pantoprazole Sodium 40 MG Oral 02/11/2023 Unknown Social History Tobacco Use: Social History Observation Description Date Details (start date - stop date) Never Smoker NA - NA Sex Assigned At : Social History Observation Description Sex Assigned At Female Tobacco Control (Standard) Question Answer Notes Tobacco use: Nonsmoker AUDIT-C (Standard) Question Answer Notes Did you have a drink containing alcohol in the p ast year? No Problems Problem Type SNOMED Code ICD Code Onset Dates Problem Status W/U Status Risk Notes Problem MDD (major depressive disorder), recurrent severe, without psychosis (F33.2) Active confirmed Problem Chronic insomnia (765980892) Chronic insomnia (F51.04) Active confirmed Encounters Encounter [facility] Date [facility] [address] [facility] [address] [place] [address] 01/11/2024 Lita Carrasquillo [facility] [address] [facility] [address] [place] [address] 01/12/2024 [facility] [address] [facility] [address] [place] [address] 01/13/2024 Lita Carrasquillo [facility] [address] [facility] [address] [place] [address] 01/13/2024 [facility] [address] [facility] [address] [address] 01/13/2024 Lita Carrasquillo Plan Of Treatment Pending Test Test Name Order Date Cytochrome P450 2D6 Genotyping 4 Insurance Providers Payer Name Payer Address Payer Phone Subscriber Number Group Number Insured Name Patient Relationship to Insured Coverage Start Date Coverage End Date [employer] [address] [place] [address] [id number] [place] Self - patient is the insured Medical (General) History Medical History History ICD Code Problems: 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
--- OUTSIDE RECORDS SUMMARY | 2025-01-02 14:37 | XMS_ITS | Encounter Summary ---
Author Organization [facility] Address [address] [place] [address] Care Team Providers Care Spa Therapist Name Role Phone Cristiane Parmar DO Primary Care Provider +1- [phone] Encounter Details Date Type Department Care Team (Late st Contact Info) Description 05/18/2006 Outpatient Historical [facility] [address] [phone] Kip Kraus DO [address] [place] [phone] Social History Tobacco Use Types Packs/Day Years Used Date Smoking Tobacco: Never Assessed Comments Unknown Sex and Gender Information Value Date Recorded Sex Assigned at Not on file Legal Sex Female 3:19 AM NEUROUROLOGIST Gender Identity Not on file Sexual Orientation Not on file documented as of this encounter Plan of Treatment Not on file documented as of this encounter Visit Diagnoses Not on filedocumented in this encounter Care Teams Spa Therapist Relationship Specialty Start [place] [address] [facility] [address] [place] [address] PCP - General Family Practice 05/07/24 documented as of this encounter
--- OUTSIDE RECORDS SUMMARY | 2025-01-02 14:37 | XMS_ITS | Clinical Summary ---
Author Organization [facility] Address [address] [place] [address] Care Team Providers Care Mold Puller Name Role Phone Radha Vanegas MD Primary Care Provider [phone] Source Comments [facility],non-owned Affiliates and Associated Physician Practices is amultiple site organization consisting of ambulatory clinics and hospital sitesin [place], [place], [place] and [place]. This disclosure is being madepursuant to the Care Everywhere program and may not contain all information available regarding this patient. Last updated 18.[facility] Allergies Active Allergy Reactions Criticality Noted Date Comments Erythromycin GI Discomfort 01/19/2015 Prednisone Other 01/19/2015 fatigue Medications * This document contains information received from the source organization and may not represent a complete record from that organization. * Be aware that medications may not be up to date on this document. Alwaysverify current medications with the patient. metaxalone (SKELAXIN) 800 MG tablet Take 1 (one) tablet by mouth 3 times daily as needed for Muscle Spasms Active fluticasone propionate (Flonase) 50 MCG/ACT nasal sprayIndication s:Allergic Rhinitis Craig 2 (two) sprays into each nostril once daily Reasons: Allergic Rhinitis Active montelukast (Singulair) 10 MG tabletIndicatio ns:Seasonal Allergic Rhinitis Take 1 (one) tablet by mouth at bedtime Reasons: Hayfever Active sertraline (Zoloft) 50 MG tablet Take 1 (one) tablet by mouth at bedtime 30 tablet 12/14/2022 Active traZODone (Desyrel) 50 MG tabletIndicatio ns:Insomnia Take 1 (one) tablet by mouth nightly as needed for Insomnia Reasons: Trouble Sleeping 30 tablet 12/14/2022 Active pantoprazole EC (Protonix) 40 MG tablet Take 1 (one) tablet by mouth once daily 30 tablet 12/14/2022 Active Active Problems Problem Noted Date Diagnosed Date Recurrent major depression-severe 12/12/2022 Major depressive disorder wi th current active episode, unspecified depression episode severity, unspecified whether recurrent 12/10/2022 Amaurosis fugax of left eye 08/03/2018 Subjective visual disturbance 08/03/2018 Visual problems 08/01/2018 Encounters Date Type Department Care Team Description 12/27/2024 4:39 PM CDT - 12/27/2024 5:13 PM CDT Emergency ER at [address] [address] Acute pain of right knee (Primary Dx) Discharge Disposition: Home or Self Care 12/27/2024 Travel from Last 3 Months Social History Tobacco Use Types Packs/Day Years Used Date Smoking Tobacco: Former Cigarettes Smokeless Tobacco: Never Comments:1 month in her 30s Alcohol Use Standard Drinks/Week Comments No 0 (1 standard drink = 0.6 oz pur e alcohol) AUDIT-C Answer Date Recorded Q1: How often do you have a drink containing alcohol? Never 12/27/2024 Q2: How many drinks containi ng alcohol do you have on a typical day when you are drinking? Patient does not drink Q3: How often do you have si x or more drinks on one occasion? Never 12/27/2024 Overall Financial Resource Strain (CARDIA) Answe r Date Recorded How hard is it for you to pa y for the very basics like food, housing, medical care, and heating? Not hard at all 12/10/2022 PHQ-2 Answer Date Recorded PHQ2 TOTAL SCORE 1 12/09/2022 [facility] [place] [facility] - Occupational Stress Questionnaire Answer Date Recorded Do you feel stress - tense, restless, nervous, or anxious, or unable to sleep at night because your mind is troubled all the time - these days? Not at all 12/10/2022 Hunger Vital Sign Answer Date Recorded Within the past 12 months, y ou worried that your food would run out before you got the money to buy more. Never true 12/11/19 Within the past 12 months, t he food you bought just didn't last and you didn't have money to get more. Never true 12/10/2022 PRAPARE - Transportation Answer Date Re corded In the past 12 months, has l ack of transportation kept you from medical appointments or from getting medications? No 11/19 In the past 12 months, has l ack of transportation kept you from meetings, work, or from getting things needed for daily living? No 12/10/2022 Housing Stability Vital Sign Answer Cameron e Recorded In the last 12 months, was t here a time when you were not able to pay the mortgage or rent on time? No 12/10/2022 In the last 12 months, how many places have you lived? 3 12/10/2022 In the last 12 months, was t here a time when you did not have a steady place to sleep or slept in a fdc (including now)? No 12/10/2022 Education Answer Date Recorded What is the highest level of school you have completed or the highest degree you have received? Some college, no degree 12/11/2022 Comments No Sex and Gender Information Value Date Recorded Sex Assigned at Not on file Legal Sex Female 6:02 AM ENGINEERING TECHNICIAN Gender Identity Not on file Sexual Orientation Not on file Last Filed Vital Signs Vital Sign Reading Time Taken Comments Blood Pressure 137/71 12/27/2024 4:45 PM CDT Pulse 86 12/27/2024 4:54 PM CDT Temperature 36.1 C (97 F) 12/27/2024 3:57 PM CDT Respiratory Rate 18 12/27/2024 3:57 PM CDT Oxygen Saturation 95% 12/27/2024 4:54 PM CDT Inhaled Oxygen Concentration - - Weight 65.5 kg (144 lb 8 oz) 11/13/2023 2:51 PM CDT Height 160 cm (5' 3) 11/13/2023 2:46 PM CDT Body Mass Index 25.6 11/13/2023 2:46 PM CDT Plan of Treatment Health Maintenance Due Date Last Done Comments COLON MONITORING 1954 COLONOSCOPY - COLON CA SCREENING 1954 CT COLONOGRAPHY - COLON CA SCREENING 1954 FLEX SIG - COLON CA SCREENING 1954 MEDICARE AWV 12 MONTHS 1954 HEPATITIS C SCREENING 04/29/1972 DTAP/TDAP/TD VACCINES (1 - Tdap) 1973 PNEUMOCOCCAL VACCINE 50+ (1 of 1 - PCV) 2004 ZOSTER VACCINE (1 of 2) 2004 FIT - COLON CA SCREENING 08/26/2018 08/26/2017 COVID-19 VACCINE (2 - season) 2024 08/22/2020 DEPRESSION SCREENING 06/20/2024 INFLUENZA VACCINE (#1) 2025 4, 03/20/2021, 03/31/2020, Additional history exists COLOGUARD (AGES 45-75) - COLON CA SCREENING 08/07/2025 08/07/2022 Colorectal Cancer Screening 08/07/2025 MAMMOGRAM 11/02/2025 11/03/2023, 10/18, 04/21/2016, Additional history exists SCREENING FOR DIABETES 09/21/2027 5, 09/19/2024, 11/13/2023, Additional history exists LIPID TESTING 10/14/2027 10/13/2022, 08/02/2018 Respiratory Syncytial Virus (RSV) Vaccine Pt: or over 60 yrs (1 - 1-dose 75+ series) 2029 BONE DENSITY TESTING Completed 07/06/2022, 11/15/19 14 HEPATITIS B VACCINE Aged Out No longe r eligible based on patient's age to complete this topic HIB VACCINE Aged Out No longer eligi ble based on patient's age to complete this topic HPV VACCINE Aged Out No longer eligi ble based on patient's age to complete this topic MENINGOCOCCAL (Group B) VACCINE SHARED DECISION-MAKING Aged Out No longer eligible based on patient's age to complete this topic MENINGOCOCCAL GROUPS A/C/Y/W VACCINE Aged Out No longer eligible based on patient's age to complete this topic Procedures Procedure Name Priority Date/Time Associated Diagnosis Comments XR KNEE RIGHT 2VW OR LESS STAT 12/27/2024 4:15 PM CDT Acute pain of right knee COMPREHENSIVE METABOLIC PANEL STAT 11/13/2023 3:01 PM CDT LIPID PROFILE AM Draw 08/02/2018 5:33 AM ENGINEERING TECHNICIAN MAMMO BILAT SCREENING Routine 04/08/2008 11:54 AM CDT Other Screening Mammogram from Last 3 Months or Most Recently Relevant to Health Maintenance Results * XR Knee Right 2Vw or Less (12/27/2024 4:15 PM CDT) Anatomical Region Laterality Modality Lower Extremity Radiographic Donna ging 12/27/2024 4:33 PM CDT Impressions 12/27/2024 4:36 PM CDT IMPRESSION: Right knee arthroplasty. No acute abnormality identified. > Interpreting Provider: Jana Lerma MD on 12/27/2024 4:36 PM Narrative 12/27/2024 4:36 PM CDT PROCEDURE: XR KNEE RIGHT 2VW OR LESS DATE/TIME OF EXAM: 12/27/2024 4:15 PM INDICATION: M25.561: Right knee pain, unspecified chronicity. COMPARISON: None. FINDINGS: No acute fractures are identified. Right knee arthroplasty without evidence of hardware complication. No significant joint effusion. The soft tissues are unremarkable. Procedure Note Jana Lerma MD - 12/27/2024 PROCEDURE: XR KNEE RIGHT 2VW OR LESS DATE/TIME OF EXAM: 12/27/2024 4:15 PM INDICATION: M25.561: Right knee pain, unspecified chronicity. COMPARISON: None. FINDINGS: No acute fractures are identified. Right knee arthroplasty withoutevidence of hardware complication. No significant joint effusion. The softtissues are unremarkable. IMPRESSION: Right knee arthroplasty. No acute abnormality identified. > Interpreting Provider: Jana Lerma MD on 12/27/2024 4:36 PM us Joel Ware PA-C DIAGNOSTIC IMAGING OR DERABLES Final Result * (ABNORMAL) COMPREHENSIVE METABOLIC PANEL (11/13/2023 3:01 PM T) Glucose 99 70 - 105 mg/dL 11/13/2023 3:40 PM [facility] Sodium 141 136 - 145 mmol/L 11/13/2023 3:40 PM [facility] Potassium 4.1 3.5 - 5.1 mmol/L 11/13/2023 3:40 PM [facility] Chloride 110(H) 98 - 107 mmol/L 11/13/2023 3:40 PM [facility] CO2 22 22 - 29 mmol/L 11/13/2023 3:40 PM [facility] Calcium 9.7 8.4 - 10.4 mg/dL 11/13/2023 3:40 PM [facility] Anion Gap 9 6 - 16 mmol/L 11/13/2023 3:40 PM [facility] BUN 20 7 - 26 mg/dL 11/13/2023 3:40 PM [facility] Creatinine 0.85 0.57 - 1.11 mg/dL 11/13/2023 3:40 PM [facility] Alkaline Phosphatase 67 40 - 150 U/L 11/13/2023 3:40 PM [facility] ALT 21 0 - 55 U/L 11/13/2023 3:40 PM [facility] AST 19 5 - 34 U/L 11/13/2023 3:40 PM [facility] Protein Total 7.2 6.4 - 8.3 gm/dL 11/13/2023 3:40 PM [facility] Albumin 3.9 3.4 - 5.0 gm/dL 11/13/2023 3:40 PM [facility] Bilirubin Total 0.4 0.2 - 1.2 mg/dL 11/13/2023 3:40 PM [facility] eGFR by CKD-EPI 74(L) >=90 mL/min/1.7 3 m2 11/13/2023 3:40 PM [facility] Blood BLOOD SPECIMEN / Unknown Venipuncture / Unknown 11/13/2023 3:01 PM CDT 11/13/2023 3:06 PM CDT us Jane Cardoza MD LAB - CHEMISTRY ORDERABLES Fin al Result Performing Organization Address City/[facility]/ZIP Co de Phone Number [facility] [address] [place] [address] * LIPID PROFILE (08/02/2018 5:33 AM ENGINEERING TECHNICIAN) [facility] Cholesterol 184 <200 mg/dL 08/02/2018 6:29 AM ENGINEERING TECHNICIAN [facility] Triglycerides 115 <150 mg/dL 08/02/2018 6:29 AM [facility] HDL Cholesterol 54 >40 mg/dL 9 6:29 AM [facility] LDL Calculated 107 <130 mg/dL 08/02/2018 6:29 AM [facility] VLDL Calculated 23 <=30 mg/dL 9 6:29 AM [facility] Chol HDL Ratio 3.4 <4.5 08/02/2018 6:29 AM [facility] LDL/HDL Ratio 2.0 <5.0 08/02/2018 6:29 AM [facility] Blood BLOOD SPECIMEN / Unknown Lab Venipuncture / Unknown 08/02/2018 5:33 AM ENGINEERING TECHNICIAN 08/02/2018 6:02 AM ENGINEERING TECHNICIAN us Michael Antonio DO LAB - CHEMISTRY ORDERABLES Ghada l Result Performing Organization Address City/[facility]/ZIP Co de Phone Number [facility] [address] [place] [address] * MAMMO SCREENING DIGITAL IMAGE BILAT (04/08/2008 11:54 AM CDT) Anatomical Region Laterality Modality Breast Bilateral Mammography 04/08/2008 1:35 PM CDT Narrative 04/09/2008 7:50 AM CDT Bilateral Screening Digital Mammograms with CAD Indication: Screening. Views: Standard CC and MLO views bilaterally. These images were interpreted with the aid of R2 CAD (version 8.3). Technologist: PLGrecia RT. Tissue density: Average. Findings: Focal area of asymmetric density is noted in the upper portion of the left breast on the MLO view, showing some radiating strands from its margins. The strand like appearance is new since the previous examination of 04/06/2007. No other significant interval change on the left side as compared to the previous examination and no discrete abnormality is noted on the right. Assessment: Incomplete, needs additional imaging evaluation - BIRADS 0. Recommendation: Spot compression of asymmetric density in the upper portion of the left breast and ultrasound if necessary. The above findings should be correlated with physical examination. A relatively nonspecific study should not preclude additional evaluation if suspicious findings are present clinically. [facility] [employer]. Procedure Note Ankit Slaughter MD / Dru Phillips (Clerical Edit - 04/09/2008 Bilateral Screening Digital Mammograms with CAD Indication: Screening. Views: Standard CC and MLO views bilaterally. These images were interpreted with the aid of [employer] CAD (version 8.3). Technologist: RT EILEEN. Tissue density: Average. Findings: Focal area of asymmetric density is noted in the upper portion of the left breast on the MLO view, showing some radiating strands from its margins. The strand like appearance is new since the previous examination of 04/06/2007. No other significant interval change on the left side as compared to the previous examination and no discrete abnormality is noted on the right. Assessment: Incomplete, needs additional imaging evaluation - BIRADS 0. Recommendation: Spot compression of asymmetric density in the upper portion of the left breast and ultrasound if necessary. The above findings should be correlated with physical examination. A relatively nonspecific study should not preclude additional evaluation if suspicious findings are present clinically. [facility] [employer] [facility]. Krystian Centeno MD MAMMO ORDERABLES Edited Resu lt - Final from Last 3 Months or Most Recently Relevant to Health Maintenance [place] [address] MEDICARE [facility] [address] [place] [id number] [facility] MEDICARE Advance Directives * Full Code (Latest Code Status on File) Date Activated Date Inactivated Comments 12/11/2022 12:27 AM 12/14/2022 2:39 PM * Full Code Date Activated Date Inactivated Comments 08/01/2018 9:35 PM 08/03/2018 4:29 PM Care Teams Mold Puller Relationship Specialty Start Date End Date Rdaha Vanegas MD PCP - General Family Medicine 11/13/23
--- OUTSIDE RECORDS SUMMARY | 2025-01-02 14:37 | XMS_ITS | Encounter Summary ---
Author Organization [facility] Address [facility] [place] [address] Care Team Providers Care Knitter Mechanic Name Role Phone Radha Vanegas MD Primary Care Provider [phone] Encounter Details Date Type Department Care Team (Late st Contact Info) Description 04/30/2024 BasisCode Message Enc [facility] [address] [place], [place] [id number] [place] [address] [place], [place] [id number] Help with Knee pain while waiting for surgery Social History Tobacco Use Types Packs/Day Years Used Date Smoking Tobacco: Never Smokeless Tobacco: Never Comments:na Alcohol Use Standard Drinks/Week Comments Not Currently 0 (1 standard drink = 0.6 oz pur e alcohol) OASIS D0700: Social Isolation Answer Da te Recorded Frequency of experiencing loneliness or isolatio n Never 07/29/2022 OASIS A1250: Transportation Answer Date Recorded Lack of Transportation (Medical) No 07/29/2022 Lack of Transportation (Non-Medical) No 07/29/2022 Patient Unable or Declines to Respond No 07/29/2022 OASIS B1300: Health Literacy Answer Cameron e Recorded Frequency of needing help to read materials from doctor or pharmacy Never 07/29/2022 PHQ-2 Answer Date Recorded Patient Health Questionnaire-2 Score 1 04/16/2024 Comments No Sex and Gender Information Value Date Recorded Sex Assigned at Female 07/03/2024 1:23 PM HEATING AND VENTILATING DRAFTER Legal Sex Female 5:45 PM CDT Gender Identity Female 10/03/2024 9:02 AM CDT Sexual Orientation Straight 10/03/2024 9: 02 AM CDT documented as of this encounter Functional Status * RETIRED Are you deaf or do you have serious difficulty hearing Answer Date of Assessment Author Status No 07/13/2022 2:00 PM HEATING AND VENTILATING DRAFTER Activ e * RETIRED Are you blind or do you have serious difficulty seeing, even when wearing glasses? Answer Date of Assessment Author Status No 07/13/2022 2:00 PM HEATING AND VENTILATING DRAFTER Activ e * Do you have serious [...] 2:00 PM Unique Orellana RN Active * Calculated C-SSRS Risk Score (Lifetime/Recent) Answer Date of Assessment Author Status No Risk Indicated 04/30/2024 2:31 PM Shukri Estes RN Active * [place] Suicide Severity Rating Scale (Screener/Recent Self-Report) Question Answer Date of Assessment Author Status 1. Wish to be (Past 1 Month) No 04/30/2024 2:31 PM Saray Estes RN Acti ve 2. Non-Specific Active Suicidal Thoughts (Past 1 Month) No 04/30/2024 2:31 PM Saray Estes RN Acti ve 6. Suicidal Behavior (Lifetime) No 04/30/2024 2:31 PM Saray Estes RN Acti ve documented as of this encounter Mental Status [...] Description 01/17/2025 4:00 PM CDT Office Visit [facility] [address] [place] [address] [place] [address] [place] [address] documented as of this encounter Visit Diagnoses Not on filedocumented in this encounter Additional Health Concerns Infection Onset Date Last Indicated Resolved Time 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 09/17/2024 09/17/2024 documented as of this encounter Care Teams Knitter Mechanic Relationship Specialty Start Date End Date Radha Vanegas MD [address] [place] [address] PCP - General FAMILY PRACTICE 11/01/23 documented as of this encounter
--- OUTSIDE RECORDS SUMMARY | 2025-01-02 14:37 | XMS_ITS | Encounter Summary ---
Author Organization [employer] [facility] Address [address] [place] [address] Care Team Providers Care Thread Milling Machine Set Up Operator Name Role Phone Cristiane Parmar DO Primary Care Provider [phone] Encounter Details Date Type Department Care Team (Latest Contact Info) Description 01/25/2002 Outpatient Historical [facility] Shukla Jr., [place] MD NO ADDRESS ON FILE BREAST DISORDERS NEC (Primary Dx) Social History Tobacco Use Types Packs/Day Years Used Date Smoking Tobacco: Never Assessed Comments Unknown Sex and Gender Information Value Date Recorded Sex Assigned at Not on file Legal Sex Female 3:19 AM EXHIBIT TECHNICIAN Gender Identity Not on file Sexual Orientation Not on file documented as of this encounter Plan of Treatment Not on file documented as of this encounter Visit Diagnoses Diagnosis Other specified disorder of breast- Primary documented in this encounter Care Teams Thread Milling Machine Set Up Operator Relationship Specialty [place] [address] [facility] [address] [place] [address] PCP - General Family Practice 05/07/24 documented as of this encounter
--- OUTSIDE RECORDS SUMMARY | 2025-01-02 14:37 | XMS_ITS | Clinical Summary ---
Author Organization [facility] [address] [facility] Address [address] [place] [address] Care Team Providers Care Cloth Piecer Name Role Phone Keon Buttrefield MD Primary Care Provider [phone] Allergies Active Allergy Reactions Criticality Noted Date Comments Diclofenac Rash Medium 01/14/2015 Duloxetine Mental status changes Low 11/18/2022 Erythromycin Vomiting Reaction: Vomiting, Ethyl Alcohol Other (See comments) Low 09/29/2012 Sulfa (Sulfonamide Antibiotics) Muscle pain Medium 12/04/[address] (PROTONIX) 40 mg EC tabletIndications:G astroesophageal reflux disease Take 1 tablet (40 mg total) by mouth daily 90 tablet 3 3 Active sertraline (ZOLOFT) 50 mg tabletIndications:d epression Take 1 tablet (50 mg total) by mouth daily 3 Active montelukast (SINGULAIR) 10 mg tablet Take 1 tablet by mouth nightly 90 tablet 3 Active meloxicam (MOBIC) 15 mg tablet Take 1 tablet (15 mg total) by mouth daily 30 tablet 11 3 Active ezetimibe (ZETIA) 10 mg tabletIndications:M ixed hyperlipidemia Take 1 tablet by mouth once daily 30 tablet 3 Active amoxicillin (AMOXIL) 875 mg tablet Take 1 tablet (875 mg total) by mouth 2 times daily 3 Active QUEtiapine (SEROquel) 50 mg tablet Take 1 tablet (50 mg total) by mouth daily 3 Active predniSONE (DELTASONE) 20 mg tablet TAKE 2 TABLETS BY MOUTH EVERY DAY FOR 5 DAYS 3 Active metaxalone (SKELAXIN) 800 mg tablet Take 1 tablet by mouth three times daily as needed for muscle spasm 90 tablet 4 Active Active Problems Problem Noted Date Diagnosed Date Labial lesion 10/15/2022 Assessment & Plan (10/15/2022 3:54 PM CDT): Benign appearing papules present on bilateral labia, recommended further evaluation with gynecology. Patient will call to schedule follow up with [facility], referral placed. Moderate episode of recurrent major depressive d isorder 10/15/2022 Assessment & Plan (10/15/2022 4:05 PM CDT): Discontinued mirtazapine 2 months ago after experiencing muscle spasms in legs, spasms resolved. Worsening depression in the past 2 months, will prescribed trazodone for sleep. Explained medication interactions with use of Skelaxin and increased risk of serotonin syndrome. Patient is agreeable to DC. Follow up in 3 months, patient with supportive family. Denies any SI/HI Encounter for preoperative e xamination for general surgical procedure 07/01/2022 Assessment & Plan (07/01/2022 11:53 AM TRACK WALKER): Reviewed past medication history. No sleep apnea, cardiac disease, or smoking history. EKG completed today, NSR. Cleared for upcoming surgery. Primary osteoarthritis of left knee 07/01/2022 Assessment & Plan (07/01/2022 11:51 AM TRACK WALKER): Scheduled for surgery with Dr. Magaña 07/13/22. Mixed hyperlipidemia 01/25/2022 Assessment & Plan (01/25/2022 11:36 AM CDT): 01/2022 TC 190 HDL 52 TRG 180 LDL 102 Stable: Continue Zetia 10 mg tablet once daily. Reviewed diet and exercise recommendations. Annual physical exam 01/25/2022 Assessment & Plan (01/25/2022 11:44 AM CDT): Preventive exam; reviewed recommended preventive screenings and vaccinations. Encourage annual flu vaccine. Wear sunscreen/protective clothing when outdoors. Encounter for colorectal cancer screening 2021 Assessment & Plan (01/25/2022 11:43 AM CDT): Discussed colorectal cancer screening guidelines. No family history of colon cancers. Declines screening with colonoscopy; aware that it is gold standard for CRC screening. Patient is agreeable to cologuard. Aware that kit will be mailed with directions and to call office if not received in 2 weeks. To call office if no results received within 2 weeks of test submission. Bilateral primary osteoarthritis of knee 021 Assessment & Plan (01/25/2022 12:59 PM CDT): Continues meloxicam use. Following with ortho for injections as needed. Visual disturbance 10/13/2018 Scaly patch rash 07/12/2018 Assessment & Plan (07/13/2018 11:20 AM TRACK WALKER): Sporadic small scaly dry red patches on [...] oral Fluconazole Screening for breast cancer 07/12/2018 BMI 29.0-29.9,adult 07/12/2018 Assessment & Plan (07/12/2018 2:41 PM TRACK WALKER): Diet= low-carb Limit white bread, rice, pasta, potatoes, juice, energy drinks, coffee creamers with sugar, sugar sodas, candy, cake, cookies, ice cream. Be more careful with starchy vegetables like corn, carrots, and fruits. Stay away from processed foods, fast foods, fried foods. The cornerstone of this diet is lean grilled meats, green salads or cooked greens, fat-free milk, cottage cheese, nuts like nbvucnw-xkuvrzm-udduzql, protein bars with 10-15 g of protein and 20-30 g of carbohydrate. Choose whole grain breads and pastas, brown rice, sweet potatoes, read onions--these whole grains absorb more slowly thus blood sugar does not surge so high so quickly. Avoid drinking juice, eat a piece of fruit instead. Fibromyalgia 02/20/2015 Assessment & Plan (10/15/2022 4:20 PM CDT): Stable, prescribed tizanidine prn. Immunizations Immunization Administration Dates Next Due Influenza, Quadrivalent, Spl it, Preservative Free, Intramuscular 03/31/2020,02/22/2019,05/05/2018,04/15 Influenza, Trivalent, High D ose, Split, Preservative Free, Intramuscular 05/20/2011 Influenza, Trivalent, IM (MDV) 05/21/2010 Influenza, Trivalent, Preser vative Free, Intramuscular 03/15/2016,02/20/2015,05/21/2014,03/27,03/29/2012 Influenza, Unspecified 12/22/2022(Deferr ed: Patient Refused),11/10/2022(Deferred: Patient Refused),07/01/2022(Deferred: Patient Refused),03/20/2022(Deferred: Patient Refused),02/18/2022(Deferred: Patient Refused),02/18/2022(Deferred: Patient Refused),06/20/2021(Deferred: Patient Refused),03/23/2021(Deferred: Patient Refused),03/23/2021(Deferred: Patient Refused),03/20/2021,02/18/2021(Deferre d: Patient Refused),04/15/2017 Yaneth (Sergio&Sergio) SARS-CoV-2 Vaccination 08/22/2020 Pneumococcal Conjugate PCV 13 07/13/2019 Pneumococcal Polysaccharide PPV23 03/23/2021 Tdap 03/29/2012 Surgical History Surgery Date Site/Laterality Comments SECTION 06/20/1979 - 06/19/1980 SECTION 06/20/1982 - 06/19/1983 OTHER SURGICAL HISTORY 06/20/1988 - 06/19/1989 Uterus and left ovary removed SECTION KNEE SURGERY 07/13/2022 Left done at [facility] Medical History Medical History Date Comments Heart disease mytrovalve prola pse Fibromyalgia 2000 Hypoglycemia Migraines Osteoarthritis of both knees Family History Medical History Relation Name Comments Alzheimer's disease Father Paul Dementia Father Paul Diabetes Father Paul Heart disease Father Paul Dementia Maternal Grandmother Carolina Jimmy Rashes / Skin problems Maternal Grandmother Carolina Reece t Alzheimer's disease Mother Negin Dementia Mother Negin No Known Problems Sister Radha No Known Problems Son 1 Rikki No Known Problems Son 2 santino Relation Name Status Comments Father Paul Maternal Grandmother Carolina Marquez Mother Negin Alive Sister Radha Alive Son 1 Rikki Alive Son 2 santino Alive Social History Tobacco Use Types Packs/Day Years Used Date Smoking Tobacco: Never Smokeless Tobacco: Never Tobacco Cessation:Counseling Given: Not Answered Alcohol Use Standard Drinks/Week Comments No 0 (1 standard drink = 0.6 oz pur e alcohol) Social Connection and Isolat ion Panel [NHANES] Answer Date Recorded In a typical week, how many times do you talk on the phone with family, friends, or neighbors? More than three times a week 12/17/2022 How often do you get togethe r with friends or relatives? More than three times a week 12/17/2022 How often do you attend chur ch or scientology services? More than 4 times per year 12/17/2022 Do you belong to any clubs o r organizations such as muslim groups, unions, fraternal or athletic groups, or school groups? No 12/17/2022 How often do you attend meet ings of the clubs or organizations you belong to? Never 12/17/2022 Are you , , di vorced, , never , or living with a partner? 12/17/2022 AUDIT-C Answer Date Recorded Q1: How often do you have a drink containing alcohol? Never 07/20/2022 Q2: How many drinks containi ng alcohol do you have on a typical day when you are drinking? Patient does not drink Q3: How often do you have si x or more drinks on one occasion? Never 07/20/2022 Overall Financial Resource Strain (CARDIA) Answe r Date Recorded How hard is it for you to pa y for the very basics like food, housing, medical care, and heating? Not hard at all 12/17/2022 PHQ-2 Answer Date Recorded PHQ-2 Total Score (If total score is 3 or more points, staff should administer the PHQ-9) 0 01/28/2023 PRAPARE - Transportation Answer Date Re corded In the past 12 months, has l ack of transportation kept you from medical appointments or from getting medications? No 11/20 In the past 12 months, has l ack of transportation kept you from meetings, work, or from getting things needed for daily living? No 12/17/2022 Housing Stability Vital Sign Answer Cameron e Recorded In the last 12 months, was t here a time when you were not able to pay the mortgage or rent on time? No 12/17/2022 In the last 12 months, how many places have you lived? 2 12/17/2022 In the last 12 months, was t here a time when you did not have a steady place to sleep or slept in a penitentiary (including now)? No 12/17/2022 Personal Safety Answer Date Recorded Getting School Help Needed Not on file 06/09 Comments No Sex and Gender Information Value Date Recorded Sex Assigned at Not on file Legal Sex Female 2:03 PM TRACK WALKER Gender Identity Female 11/27/2022 8:14 AM CDT Sexual Orientation Straight 07/06/2022 12 :07 AM TRACK WALKER Obstetrics History Last Filed Vital Signs Vital Sign Reading Time Taken Comments Blood Pressure 118/70 04/05/2023 2:18 PM CDT Pulse 61 04/05/2023 2:18 PM CDT Temperature 36.5 C (97.7 F) 04/05/2023 2:18 PM CDT Respiratory Rate 18 04/05/2023 2:18 PM CDT Oxygen Saturation 98% 04/05/2023 2:18 PM CDT Inhaled Oxygen Concentration - - Weight 68.2 kg (150 lb 6.4 oz) 04/05/2023 2:18 P M CDT Height 160 cm (5' 2.99) 04/05/2023 2:18 PM CDT Body Mass Index 26.65 04/05/2023 2:18 PM CDT Plan of Treatment Health Maintenance Due Date Last Done Comments Hepatitis C Screening 1954 Hepatitis B Screening 1972 Zoster Vaccine (1 of 2) 2004 Breast Cancer Screening-Mammogram 11/13/2014 014 DTaP/Tdap/Td Vaccine (2 - Td or Tdap) 03/29/2022 03/29/2012 Well Visit 65+ 01/25/2023 01/25/2022, 02/06/2020 Depression Screening 12/23/2023 12/22/2022, 12/22/2022, 11/10/2022, Additional history exists Fall Risk Assessment 12/23/2023 12/22/2022, 11/10/2022, 10/15/2022, Additional history exists Covid-19 Vaccine (2 - 2023-2 5 season) 2024 08/22/2020 Osteoporosis Screening-Bone Density Scan 07/06/2024 07/06/2022 Influenza Vaccine (#1) 2025 , 03/31/2020, 02/22/2019, Additional history exists Colon Cancer Screening-DNA Stool 08/07/2025 08/07/19, 02/02/2019 Pneumococcal vaccine 65+ Completed 03/23/2021, 06/21 Procedures Procedure Name Priority Date/Time Associated Diagnosis Comments STOOL DNA COLOGUARD Routine 08/07/2022 9:10 PM TRACK WALKER Encounter for colorectal cancer screening DEXA AXIAL SKELETON BONE DENSITY 1 OR MORE SITES Schedule Routine, Read Routine (OP Routine) 07/06/2022 2:30 PM TRACK WALKER Encounter for osteoporosis screening in asymptomatic postmenopausal patient DIAGNOSTIC MAMMOGRAM BILATERAL W ALLEN Routine 11/13/2013 12:00 AM CDT from Last 3 Months or Most Recently Relevant to Health Maintenance Results * Stool DNA - Cologuard (08/07/2022 9:10 PM TRACK WALKER) Stool DNA - Cologuard Negative Negative op5 (CLIA #:[id number]) Comment: NEGATIVE TEST RESULT. A negative Cologuard result indicates a low likelihood that a colorectal cancer (CRC) or advanced adenoma (adenomatous polyps with more advanced pre-malignant features) is present. The chance that a person with a negative Cologuard test has a colorectal cancer is less than 1 in 1500 (negative predictive value >99.9%) or has an advanced adenoma is less than 5.3% (negative predictive value 94.7%). These data are based on a prospective cross-sectional study of 10,000 individuals at average risk for colorectal cancer who were screened with both Cologuard and colonoscopy. (Heather Garvey et al, N Engl J Med 2014;370(14):6515-1652) The normal value (reference range) for this assay is negative. COLOGUARD RE-SCREENING RECOMMENDATION: Periodic colorectal cancer screening is an important part of preventive healthcare for asymptomatic individuals at average risk for colorectal cancer. Following a negative Cologuard result, the [place] [employer] Society and U.S. Multi-Society Task Force screening guidelines recommend a Cologuard re-screening interval of 3 years. References: [place] [employer] Guideline for Colorectal Cancer Screening: https://www.cancer.org/cancer/wcfow-dydceo-clxvtx/iqufnytzs-spvlncnud-gqlsboz/ac s-rec ommendations.html.; Joshua DK, Asim CR, Chin HillK, Colorectal Cancer Screening: Recommendations for Physicians and Patients from the U.S. Multi-Society Task Force on Colorectal Cancer Screening , Am J Gastroenterology 2017; 112:4703-0404. TEST DESCRIPTION: Composite algorithmic analysis of stool DNA-biomarkers with hemoglobin immunoassay. Quantitative values of individual biomarkers are not reportable and are not associated with individual biomarker result reference ranges. Cologuard is intended for colorectal cancer screening of adults of either sex, 45 years or older, who are at average-risk for colorectal cancer (CRC). Cologuard has been approved for use by the U.S. FDA. The performance of Cologuard was established in a cross sectional study of average-risk adults aged 50-84. Cologuard performance in patients ages 45 to 49 years was estimated by sub-group analysis of near-age groups. Colonoscopies performed for a positive result may find as the most clinically significant lesion: colorectal cancer [4.0%], advanced adenoma (including sessile serrated polyps greater than or equal to 1cm diameter) [20%] or non- advanced adenoma [31%]; or no colorectal neoplasia [45%]. These estimates are derived from a prospective cross-sectional screening study of 10,000 individuals at average risk for colorectal cancer who were screened with both Cologuard and colonoscopy. (Heather Lord al, N Engl J Med 2014;370(14):4407-8071.) Cologuard may produce a false negative or false positive result (no colorectal cancer or precancerous polyp present at colonoscopy follow up). A negative Cologuard test result does not guarantee the absence of CRC or advanced adenoma (pre-cancer). The current Cologuard screening interval is every 3 years. ([place] [employer] and U.S. Multi-Society Task Force). Cologuard performance data in a 10,000 patient pivotal study using colonoscopy as the reference method can be accessed at the following location: www.[employer].VIRxSYS/results. Additional description of the Cologuard test process, warnings and precautions can be found at www.cologuard.com. Stool 08/07/2022 9:10 PM TRACK WALKER 08/10/2022 12:04 PM TRACK WALKER us Priscilla Marie NP LAB BODY FLUIDS AND STOOLS ORDERABLES Final Result [employer] (CLIA #:[id number]) [address] [place] [address] * Dexa Axial Skeleton Bone Density 1 Or 2 Site (07/06/2022 2:30 PM TRACK WALKER) Anatomical Region Laterality Modality Body N/A Other 07/06/2022 9:02 PM TRACK WALKER Narrative 07/07/2022 8:13 AM TRACK WALKER EXAM DESCRIPTION: DEXA AXIAL SKELETON BONE DENSITY 1 OR MORE SITES REASON FOR STUDY: 67 y/o year old F with given history of screening. 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 FINDINGS: AP LUMBAR SPINE L1-L4: Total BMD is 0.876 g/cm2 T-score is -1.6 LEFT HIP: Total BMD is 0.791 g/cm2 T-score is -1.2 Femoral neck BMD is 0.694 g/cm2 T-score is -1.4 FRAX: 10 year risk for a major osteoporotic fracture is 9.1 %, 10 year risk for a hip fracture is 1.0 % IMPRESSION: Based on the lumbar spine bone mineral density (T-score -1.6 ) the patient has low bone mass . REFERENCE: Bone mineral density: Normal (T-score above or = -1.0) Low bone mass (T-score between -1.0 and -2.5) replaces the previously used term osteopenia Osteoporosis (T-score = or below -2.5) Medical evaluation for secondary causes of low bone mineral density may be appropriate. FRAX is a World Health Organization validated fracture risk assessment tool that calculates a person's 10 year probability of a major osteoporosis related fracture and hip fracture. According to the National Osteoporosis Foundation guidelines, postmenopausal women and men age 50 or older with low bone mass and a 10 year probability of a major osteoporosis related fracture = or greater than 20% or a 10 year probability of a hip fracture = or greater than 3% should be considered for treatment. For further information, including treatment recommendations, please refer to the 2013 ISCD Official Positions (http://www.iscd.org) and the NOF's Clinician's Guide to Prevention and Treatment of Osteoporosis (http://www.nof.org/professionals/clinical-guidelines) THIS IS AN ELECTRONICALLY VERIFIED FINAL REPORT 07/07/2022 8:13 AM - Electronically signed by Kenan Doran M.D. MF: DANIELLE Report ID: [id number] Reading Location: [id number] Procedure Note Kenan Doran MD - 07/07/2022 EXAM DESCRIPTION: DEXA AXIAL SKELETON BONE DENSITY 1 OR MORE SITES REASON FOR STUDY: 67 y/o year old F with given history ofscreening. 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 FINDINGS: AP LUMBAR SPINE L1-L4: Total BMD is 0.876 g/cm2 T-score is -1.6 LEFT HIP: Total BMD is 0.791 g/cm2 T-score is -1.2 Femoral neck BMD is 0.694 g/cm2 T-score is -1.4 FRAX: 10 year risk for a major osteoporotic fracture is 9.1 %, 10 year risk fora hip fracture is 1.0 % IMPRESSION: Based on the lumbar spine bone mineral density (T-score -1.6 ) the patient has low bone mass . REFERENCE: Bone mineral density: Normal (T-score above or = -1.0) Low bone mass (T-score between -1.0 and -2.5) replaces thepreviously used term osteopenia Osteoporosis (T-score = or below -2.5) Medical evaluation for secondary causes of low bone mineral density may be appropriate. FRAX is a World Health Organization validated fracture risk assessmenttool that calculates a person's 10 year probability of a major osteoporosisrelated fracture and hip fracture. According to the National OsteoporosisFoundation guidelines, postmenopausal women and men age 50 or older with low bonemass and a 10 year probability of a major osteoporosis related fracture = or greater than 20% or a 10 year probability of a hip fracture = or greaterthan 3% should be considered for treatment. For further information, including treatment recommendations, please referto the 2013 ISCD Official Positions (http://www.iscd.org) and the NOF's Clinician's Guide to Prevention and Treatment of Osteoporosis (http://www.nof.org/professionals/clinical-guidelines) THIS IS AN ELECTRONICALLY VERIFIED FINAL REPORT 07/07/2022 8:13 AM - Electronically signed by Kenan Doran M.D. MF: DANIELLE Report ID: [id number] Reading Location: [place] [id number] us Priscilla Marie CHIEF QUALITY OFFICER IMG DXA PROCEDURES Final Re sult * Diagnostic Mammogram Bilateral W Allen (11/13/2013 12:00 AM CDT) Anatomical Region Laterality Modality Breast Bilateral Mammography 11/13/2013 2:16 PM CDT Narrative 11/20/2013 1:32 PM CDT BILATERAL DIAGNOSTIC MAMMOGRAM WITH TOMOSYNTHESIS AND BILATERAL BREAST SONOGRAM: 11/13/2013 HISTORY: Bilateral breast lumps detected by physician. One is at the 12 o'clock position right breast deep and the other is at the 4 o'clock position left breast. FINDINGS: Three views of both breasts were performed with 2-D and tomosynthesis technique in the craniocaudal and mediolateral oblique projection. Patient's outside hospital mammograms are not available for comparison at this time but an addendum will be issued when comparison of these studies is made. Bilobed breast sonogram is performed in the area of nodularity. Scattered fibroglandular breast tissue is noted bilaterally. Well-circumscribed 4 mm nodule is seen in the middle to posterior aspect left breast at 4 o'clock with a coarse calcification along its anterior margin suggestive of tiny fibroadenoma. No other masses are identified in either breast and there is no evidence of suspicious microcalcification or distortion. Sonographic surveillance of the breasts was performed. Tiny hypoechoic nodule at the 4 o'clock subareolar region left breast with question adjacent calcification most likely corresponds to the tiny nodule seen on mammography and has a benign appearance on sonography. This most likely represents a 4 mm fibroadenoma. No other masses are identified on surveillance of the left breast. There are 2 cysts at the 12 o'clock subareolar region right breast, one measuring 6 x 2 mm and the other measuring only 2 mm. These do not correspond with the palpable abnormality. In the area of palpable abnormalities in both breasts only normal fibroglandular breast tissue is identified. SUMMARY: BI-RADS code 2/benign 1. Tiny nodular density middle depth left breast 4 o'clock with eccentric calcification along its margin has a mammographic and sonographic appearance suggestive of benignity, most likely very small fibroadenoma. 2. Two tiny cysts in right breast at 12 o'clock subareolar region. These are not palpable because of their very small size. 3. No sonographic or mammographic evidence of malignancy in either breast. 4. We will attempt to obtain previous mammograms at outside hospital and if they are obtained an addendum to this report will be issued. Overall assessment: Benign. LP/mf Addendum Begins Addendum 11/20/2013 The patient's outside studies were received dated 12/18/2009 with a left diagnostic study dated 12/26/2009. The small nodule on the left appears stable, again highly likely benign especially given the proven stability. There is no new suspicious abnormality in either breast comparing the prior studies with the current study. The bilateral breast BI-RADS code remains category 2, benign and overall assessment remains benign. CO/pab Addendum Ends Radiologist: MARVEL PATINO Attending: ERIC SIEGEL M.D. Requesting: ERIC SIEGEL M.D. Requesting Requesting ID: [id number] Attending Attending ID: [id number] Completed Time: 11/13/2013 2:16 PM Dictated Time: 11/13/2013 2:59 PM Transcribed Time: 11/13/2013 5:33 PM Signed by: MARVEL PATINO on 11/20/2013 1:32 PM Report To 1 ID: Report To 1 Name: , Report To 1 FAX: Report To 2 ID: Report To 2 Name: , Report To 2 FAX: Report To 3 ID: Report To 3 Name: , Report To 3 FAX: NextGen Order #: Procedure Note Provider, MD Red - 10/11/2016 BILATERAL DIAGNOSTIC MAMMOGRAM WITH TOMOSYNTHESIS AND BILATERAL BREAST SONOGRAM: 11/13/2013 HISTORY: Bilateral breast lumps detected by physician. One is at the 12 o'clock position right breast deep and the other is at the 4 o'clock position left breast. FINDINGS: Three views of both breasts were performed with 2-D and tomosynthesis technique in the craniocaudal and mediolateral oblique projection. Patient's outside hospital mammograms are not available for comparison at this time but an addendum will be issued when comparison of these studies is made. Bilobed breast sonogram is performed in the area of nodularity. Scattered fibroglandular breast tissue is noted bilaterally. Well-circumscribed 4 mm nodule is seen in the middle to posterior aspect left breast at 4 o'clock with a coarse calcification along its anterior margin suggestive of tiny fibroadenoma. No other masses are identified in either breast and there is no evidence of suspicious microcalcification or distortion. Sonographic surveillance of the breasts was performed. Tiny hypoechoic nodule at the 4 o'clock subareolar region left breast with question adjacent calcification most likely corresponds to the tiny nodule seen on mammography and has a benign appearance on sonography. This most likely represents a 4 mm fibroadenoma. No other masses are identified on surveillance of the left breast. There are 2 cysts at the 12 o'clock subareolar region right breast, one measuring 6 x 2 mm and the other measuring only 2 mm. These do not correspond with the palpable abnormality. In the area of palpable abnormalities in both breasts only normal fibroglandular breast tissue is identified. SUMMARY: BI-RADS code 2/benign 1. Tiny nodular density middle depth left breast 4 o'clock with eccentric calcification along its margin has a mammographic and sonographic appearance suggestive of benignity, most likely very small fibroadenoma. 2. Two tiny cysts in right breast at 12 o'clock subareolar region. These are not palpable because of their very small size. 3. No sonographic or mammographic evidence of malignancy in either breast. 4. We will attempt to obtain previous mammograms at outside hospital and if they are obtained an addendum to this report will be issued. Overall assessment: Benign. LP/mf Addendum Begins Addendum 11/20/2013 The patient's outside studies were received dated 12/18/2009 with a left diagnostic study dated 12/26/2009. The small nodule on the left appears stable, again highly likely benign especially given the proven stability. There is no new suspicious abnormality in either breast comparing the prior studies with the current study. The bilateral breast BI-RADS code remains category 2, benign and overall assessment remains benign. CO/pab Addendum Ends Radiologist: MARVEL PATINO Attending: ERIC SIEGEL M.D. Requesting: ERIC SIEGEL M.D. Requesting Requesting ID: [id number] Attending Attending ID: [id number] Completed Time: 11/13/2013 2:16 PM Dictated Time: 11/13/2013 2:59 PM Transcribed Time: 11/13/2013 5:33 PM Signed by: MARVEL PATINO on 11/20/2013 1:32 PM Report To 1 ID: Report To 1 Name: , Report To 1 FAX: Report To 2 ID: Report To 2 Name: , Report To 2 FAX: Report To 3 ID: Report To 3 Name: , Report To 3 FAX: NextGen Order #: Historical Provider MD MENESES MAMMO PROCEDURES Ghada l Result from Last 3 Months or Most Recently Relevant to [place] [address] MEDICARE [facility] MEDICARE ADVANTAGE MEDICARE MEDICARE [facility] MEDICARE ADVANTAGE Care Teams Cloth Piecer Relationship Specialty Start Date End Date Keon Butterfield MD [address] [place] [address] PCP - General Family Medicine 11/21/17
--- OUTSIDE RECORDS SUMMARY | 2025-01-02 14:37 | XMS_ITS | Referral Summary ---
Author Organization [facility] [address] [facility] Address [address] [place] [address] Care Team Providers Care Hand Knitter Name Role Phone Keon Butterfield MD Primary Care Provider [phone] Allergies Active Allergy Reactions Criticality Noted Date [...] will call to schedule follow up with [facility]per, referral placed. Moderate episode of recurrent major [...] 07/01/2022 Assessment & Plan (07/01/2022 11:53 AM TURNER SPLITTER MACHINE OPERATOR): Reviewed past medication history. No sleep apnea, cardiac disease, or smoking history. EKG completed today, NSR. Cleared for upcoming surgery. Primary osteoarthritis of left knee 07/01/2022 Assessment & Plan (07/01/2022 11:51 AM TURNER SPLITTER MACHINE OPERATOR): Scheduled for surgery with Dr. Magaña 07/13/22. [...] 07/12/2018 Assessment & Plan (07/13/2018 11:20 AM TURNER SPLITTER MACHINE OPERATOR): Sporadic small scaly dry red patches on [...] 07/12/2018 Assessment & Plan (07/12/2018 2:41 PM TURNER SPLITTER MACHINE OPERATOR): Diet= low-carb Limit white bread, rice, pasta, potatoes, juice, energy drinks, coffee creamers with sugar, sugar sodas, candy, cake, cookies, ice cream. Be more careful with starchy vegetables like corn, carrots, and fruits. Stay away from processed foods, fast foods, fried foods. The cornerstone of this diet is lean grilled meats, green salads or cooked greens, fat-free milk, cottage cheese, nuts like [id number], protein bars with 10-15 g of protein [...] Patient Refused),03/23/2021(Deferred: Patient Refused),03/20/2021,02/18/2021(Deferre d: Patient Refused),04/15/2017 [employer] ([employer]) SARS-CoV-2 Vaccination 08/22/2020 Pneumococcal Conjugate PCV 13 07/13/2019 Pneumococcal Polysaccharide PPV23 03/23/2021 Tdap 03/29/2012 Social History Tobacco Use Types Packs/Day Years [...] week 12/17/2022 How often do you attend [facility] or [facility] services? More than 4 times per year 12/17/2022 Do you belong to any clubs o r organizations such as methodist groups, unions, fraternal or athletic groups, or [...] place to sleep or slept in a mcc (including now)? No 12/17/2022 Personal Safety Answer Date Recorded Getting School Help Needed Not on file 06/09 Comments No Sex and Gender Information Value Date Recorded Sex Assigned at Not on file Legal Sex Female 2:03 PM TURNER SPLITTER MACHINE OPERATOR Gender Identity Female 11/27/2022 8:14 AM CDT Sexual Orientation Straight 07/06/2022 12 :07 AM TURNER SPLITTER MACHINE OPERATOR Last Filed Vital Signs Vital Sign Reading [...] 04/05/2023 2:18 PM CDT Plan of Treatment Not on file Procedures Procedure Name Priority Date/Time Associated Diagnosis Comments STOOL DNA COLOGUARD Routine 08/07/2022 9:10 PM TURNER SPLITTER MACHINE OPERATOR Encounter for colorectal cancer screening DEXA AXIAL SKELETON BONE DENSITY 1 OR MORE SITES Schedule Routine, Read Routine (OP Routine) 07/06/2022 2:30 PM TURNER SPLITTER MACHINE OPERATOR Encounter for osteoporosis screening in asymptomatic postmenopausal patient DIAGNOSTIC MAMMOGRAM BILATERAL W ALLEN Routine 11/13/2013 12:00 AM CDT from Last 3 Months or Most Recently Relevant to Health Maintenance Results * Stool DNA - Cologuard (08/07/2022 9:10 PM TURNER SPLITTER MACHINE OPERATOR) Stool DNA - Cologuard Negative Negative Level Chef (CLIA #:[id number]) Comment: NEGATIVE TEST RESULT. A negative Cologuard [...] Garvey et al, N Engl J Med 2014;370(14):9564-6977) The normal value (reference range) for this assay is negative. COLOGUARD RE-SCREENING RECOMMENDATION: Periodic colorectal cancer screening is an important part of preventive healthcare for asymptomatic individuals at average risk for colorectal cancer. Following a negative Cologuard result, the [place] Cancer Society and U.S. Multi-Society Task Force screening guidelines recommend a Cologuard re-screening interval of 3 years. References: [place] [employer] Guideline for Colorectal Cancer Screening: https://www.cancer.org/cancer/wjpav-huojdn-bbedvu/qxlivkell-nasertcax-qoreomx/ac s-rec ommendations.html.; Joshua DK, Asim CR, Chin HillK, Colorectal Cancer Screening: Recommendations for Physicians and Patients from the U.S. Multi-Society Task Force on Colorectal Cancer Screening , Am J Gastroenterology 2017; 112:8672-7725. TEST DESCRIPTION: Composite algorithmic analysis of stool [...] Garvey et al, N Engl J Med 2014;370(14):9068-6737.) Cologuard may produce a false negative or false positive result (no colorectal cancer or precancerous polyp present at colonoscopy follow up). A negative Cologuard test result does not guarantee the absence of CRC or advanced adenoma (pre-cancer). The current Cologuard screening interval is every 3 years. ([place] Cancer Society and U.S. Multi-Society Task Force). Cologuard performance data in a 10,000 patient pivotal study using colonoscopy as the reference method can be accessed at the following location: www.[employer]/results. Additional description of the Cologuard test process, warnings and precautions can be found at www.P[employer]FoundValuerd.com. Stool 08/07/2022 9:10 PM TURNER SPLITTER MACHINE OPERATOR 08/10/2022 12:04 PM TURNER SPLITTER MACHINE OPERATOR Priscilla Marie NP LAB BODY FLUIDS AND STOOLS ORDERABLES Final Result [facility] (CLIA #:[id number]) [place] [address] * Dexa Axial Skeleton Bone Density 1 Or 2 Site (07/06/2022 2:30 PM TURNER SPLITTER MACHINE OPERATOR) Anatomical Region Laterality Modality Body N/A Other 07/06/2022 9:02 PM TURNER SPLITTER MACHINE OPERATOR Narrative 07/07/2022 8:13 AM TURNER SPLITTER MACHINE OPERATOR EXAM DESCRIPTION: DEXA AXIAL SKELETON BONE DENSITY 1 OR MORE SITES REASON FOR STUDY: 67 y/o year old F with given history of screening. 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 MF: DANIELLE Report ID: [id number] Reading Location: [id number] Procedure Note Kenan Doran MD - 07/07/2022 EXAM DESCRIPTION: DEXA AXIAL SKELETON BONE DENSITY 1 OR MORE SITES REASON FOR STUDY: 67 y/o year old F with given history ofscreening. Postmenopausal Regional Sales Engineer/Model: [email or web address] SL (S/N [id number]) CLINICAL INFORMATION: Current height: 63 inches Maximum [...] Kenan Doran M.D. MF: DANIELLE Report ID: [id number] Reading Location: [place] [address] Priscilla Marie MEDICAL NURSE IMG DXA PROCEDURES Final Re sult * [...] Requesting: ERIC SIEGEL M.D. Requesting Requesting ID: [id number] Attending Attending ID: [id number] Completed Time: 11/13/2013 2:16 PM Dictated Time: [...] Requesting: ERIC SIEGEL M.D. Requesting Requesting ID: [id number] Attending Attending ID: [id number] Completed Time: 11/13/2013 2:16 PM Dictated Time: [...] Recently Relevant to Health Maintenance Insurance MEDICARE [facility] MEDICARE ADVANTAGE [facility] Address: [address] [address] [place] [address] MEDICARE MEDICARE [facility] MEDICARE ADVANTAGE [facility] MEDIC[facility] Address: [address] [address] [place] [address] Care Teams Hand Knitter Relationship Specialty Start Date End Date Keon Butterfield MD [address] [place] [address] PCP - General Family Medicine 11/21/17
--- OUTSIDE RECORDS SUMMARY | 2025-01-02 14:37 | XMS_ITS | Encounter Summary ---
Author Organization [facility] Address [address] [place] [address] Care Team Providers Care Silk Brusher Name Role Phone Keon Butterfield MD Primary Care Provider [phone] Radha Vanegas MD Primary Care Provider [phone] Encounter Details Date Type Department Care Team (Late st Contact Info) Description 10/17/2018 Lab Requisition [facility] [address] [place] [address] Raeann Carlisle, [address] [facility] [address] [place] [address] Social History Tobacco Use Types Packs/Day Years Used Date Smoking Tobacco: Former Cigarettes Smokeless Tobacco: Never Comments:1 month in her 30s Alcohol Use Standard Drinks/Week Comments No 0 (1 standard drink = 0.6 oz pur e alcohol) Comments No Sex and Gender Information Value Date Recorded Sex Assigned at Not on file Legal Sex Female 6:02 AM DATA INTEGRATION ARCHITECT Gender Identity Not on file Sexual Orientation Not on file documented as of this encounter Plan of Treatment Not on file documented as of this encounter Procedures Procedure Name Priority Date/Time Associated Diagnosis Comments DERMATOPATHOLOGY Routine 10/16/2018 12:0 0 AM CDT documented in this encounter Results * DERMATOPATHOLOGY (10/16/2018 12:00 AM CDT) Case Report Dermatopathology Report Case: [id number] Authorizing Provider: Raeann Carlisle DO Collected: 10/16/2018 12:00 AM Pathologist: Odette Galvin MD Received: 10/17/2018 10:51 AM Specimen: Skin, right lower leg 12:31 PM CDT DERMATOPATHOLOGY LABORATORY Final Diagnosis Specimen A. SKIN, right lower leg: LICHENOID (INTERFACE) DERMATITIS (L30.8) STASIS DERMATITIS (L30.8) (see microscopic description and comment) 12:31 PM CDT DERMATOPATHOLOGY LABORATORY at 1231 CDT Clinical History ACD/nummular LSC vs other. 12:31 PM CDT DERMATOPATHOLOGY LABORATORY Gross Description Specimen A: Received is one formalin filled container labeled with the patient's name and designated right lower leg. The specimen consists of a shave measuring [id number]. Jar 0. 12:31 PM CDT DERMATOPATHOLOGY LABORATORY Microscopic Description Specimen A. SKIN, right lower leg: There is focal spongiosis. There are scattered dyskeratotic keratinocytes and vacuolar alteration along the basal cell layer. In addition, an underlying band-like infiltrate composed mostly of lymphocytes focally obscures the dermal-epidermal junction. The dermis also shows a sparse, perivascular lymphocytic infiltrate surrounding dilated, thick-walled vessels, which are increased in number. COMMENT: The differential diagnosis for these histologic findings includes a lichen planus like keratosis (LPLK), lichen planus and its variants, and a connective tissue disease. 12:31 PM CDT DERMATOPATHOLOGY LABORATORY Disclaimer An external and internal positive and negative controls are appropriate for the histochemical, immunohistochemical and immunofluorescence stain(s) in this case (if any), except where stated explicitly. The performance characteristics of the stain(s) cited in this report were developed and its performance characteristic determined by the Dermatopathology Laboratory at [facility], directed by Dr. Mary Carmen Benson. These tests need not be, and therefore are not, approved by the [place] Food and Drug Administration. The tests are used for clinical purposes. Billing Codes Specimen Charges Stain Charges 34595 1 9 12:31 PM CDT DERMATOPATHOLOGY LABORATORY Embedded Images 9 12:31 PM CDT DERMATOPATHOLOGY LABORATORY Pathology/Cytolog y TISSUE SPECIMEN FROM SKIN / Unknown 10/16/2018 10/17/2018 10:51 AM CDT Raeann Carlisle DO LAB - PATHOLOGY/CYTOLOGY ORDERABLES Final Result DERMATOPATHOLOGY LABORATORY [facility] - Department of Dermatology [address] [place] [address], 5[address] Floor Lab [address] [phone] documented in this encounter Visit Diagnoses Not on filedocumented in this encounter Care Teams Silk Brusher Relationship Specialty Start Date End Date Keon Butterfield MD [address] [place] [address] PCP - General 08/01/18 11/12/23 Radha Vanegas MD PCP - General Family Medicine 11/13/23 documented as of this encounter
--- OUTSIDE RECORDS SUMMARY | 2025-01-02 14:37 | XMS_ITS | Data Portability ---
Author Organization Pins, [facility] Address [address] [address] Assessment No assessment recorded. Plan of Treatment Reminders Order Date Submit Date Provider Last Modified By Organization Details Last Modified Time Details Appointments None recorded. Lab CBC w/ auto diff 2020 ANA LILIA Not available 12:35:37 vitamin D, 25-hydroxy, total, serum 2020 ANA LILIA Not available 12:35:38 testosteron e, free, serum 2020 [email or web address] Not available 08:17:49 testosteron e, total, serum 2020 [email or web address] Not available 08:17:49 HbA1c (hemoglobin A1c), blood 2020 ANA LILIA Not available 12:35:38 CRP, high sensitivity , serum or plasma 2020 ANA LILIA Not available 12:35:38 Referral None recorded. Procedures None recorded. Surgeries None recorded. Imaging XR, knee 2020 [email or web address] Not available 15:19:00 Medication Orders cephalexin 500 mg capsule 2020 [email or web address] Not available 16:33:47 Patient TargetsNo targets recorded. Patient InstructionsNo instructions recorded. Reason for Referral None Reported. Results Created Date Observation Date Name Description Value Unit Range Abnormal Flag Note LastModifiedBy Organization Detail LastModifiedTime 04/22/20 21 04/25/2021 CBC (INCL UDES DIFF/ PLT) white blood cell count 7.1 thous and/u L 3.8-10 .8 normal Not Available [address], [address], 04/25/2021 12:35:37 04/22/20 21 04/25/2021 CBC (INCL UDES DIFF/ PLT) red blood cell count 4.76 gio on/uL 3.80-5 .10 normal Not Available [address], [address], 04/25/2021 12:35:37 04/22/20 21 04/25/2021 CBC (INCL UDES DIFF/ PLT) hemoglobin 13.5 g/dL 11.7-1 5.5 normal Not Available [address], [address], 04/25/2021 12:35:37 04/22/20 21 04/25/2021 CBC (INCL UDES DIFF/ PLT) hematocrit 40.6 % 35.0-4 5.0 normal Not Available [address], [address], 04/25/2021 12:35:37 04/22/20 21 04/25/2021 CBC (INCL UDES DIFF/ PLT) MCV 85.3 fL 80.0-1 00.0 normal Not Available [address], [address], 04/25/2021 12:35:37 04/22/20 21 04/25/2021 CBC (INCL UDES DIFF/ PLT) MCH 28.4 pg 27.0-3 3.0 normal Not Available [address], [address], 04/25/2021 12:35:37 04/22/20 21 04/25/2021 CBC (INCL UDES DIFF/ PLT) MCHC 33.3 g/dL 32.0-3 6.0 normal Not Available [address], [address], 04/25/2021 12:35:37 04/22/20 21 04/25/2021 CBC (INCL UDES DIFF/ PLT) RDW 12.7 % 11.0-1 5.0 normal Not Available [address], [address], 04/25/2021 12:35:37 04/22/2004/25/2021 CBC (INCL UDES DIFF/ PLT) platelet count 373 thous and/u L 140-40 0 normal Not Available [address], [address], 04/25/2021 12:35:37 04/22/20 21 04/25/2021 CBC (INCL UDES DIFF/ PLT) MPV 10.5 fL 7.5-12 .5 normal Not Available [address], [address], 04/25/2021 12:35:37 04/22/20 21 04/25/2021 CBC (INCL UDES DIFF/ PLT) absolute neutrophils 4033 cells /uL 1500-7 800 normal Not Available [address], [address], 04/25/2021 12:35:37 04/22/20 21 04/25/2021 CBC (INCL UDES DIFF/ PLT) absolute lymphocytes 2201 cells /uL 850-39 00 normal Not Available [address], [address], 04/25/2021 12:35:37 04/22/20 21 04/25/2021 CBC (INCL UDES DIFF/ PLT) absolute monocytes 561 cells /uL 200-95 0 normal Not Available [address], [address], 04/25/2021 12:35:37 04/22/20 21 04/25/2021 CBC (INCL UDES DIFF/ PLT) absolute eosinophils 234 cells /uL 15-500 normal Not Available [address], [address], 04/25/2021 12:35:37 04/22/20 21 04/25/2021 CBC (INCL UDES DIFF/ PLT) absolute basophils 71 cells /uL 0-200 normal Not Available [address], [address], 04/25/2021 12:35:37 04/22/20 21 04/25/2021 CBC (INCL UDES DIFF/ PLT) neutrophils 56.8 % normal Not Available [address], [address], 04/25/2021 12:35:37 04/22/20 21 04/25/2021 CBC (INCL UDES DIFF/ PLT) lymphocytes 31.0 % normal Not Available [address], [address], 04/25/2021 12:35:37 04/22/20 21 04/25/2021 CBC (INCL UDES DIFF/ PLT) monocytes 7.9 % normal Not Available [address], [address], 04/25/2021 12:35:37 04/22/20 21 04/25/2021 CBC (INCL UDES DIFF/ PLT) eosinophils 3.3 % normal Not Available [facility] [address], [address], 04/25/2021 12:35:37 04/22/20 21 04/25/2021 CBC (INCL UDES DIFF/ PLT) basophils 1.0 % normal Not Available [address], [address], 04/25/2021 12:35:37 04/22/20 21 04/25/2021 HS CRP hs CRP 3.2 mg/L high Refer ence Range Optim al <1.0 Sugey EVANS et al. Endoc r Pract .2017 ;23(S uppl 2):1- 87. For ages >17 Years : hs-CR P mg/L Risk Accor ding to AHA/C DC Guide lines <1.0 Lower relat bryant cardi ovasc ular risk. 1.0-3 .0 Manderson ge relat bryant cardi ovasc ular risk. 3.1-1 0.0 Highe r relat bryant cardi ovasc ular risk. Consi manisha retes ting in 1 to 2 weeks to exclu de a benig n trans ient eleva tion in the basel ine CRP value secon ranjith to infec tion or infla mmati on. >10.0 Persi stent eleva tion, upon retes ting, may be assoc iated with infec tion and infla mmati on. Not Available [facility] [address], [place], [address], 04/25/2021 12:35:37 04/22/2004/25/2021 VITAM IN D,25- OH,TO MARYCARMEN,I A vitamin D,25-oh,tota l,ia 20 NG/mL 30-100 low Vitam in D Statu s 25-OH Vitam in D: Defic iency : <20 ng/mL Insuf ficie ncy: 20 - 29 ng/mL Optim al: > or = 30 ng/mL For 25-OH Vitam in D testi ng on patie nts on D2-patel pplem entat ion and patie nts for whom quant itati on of D2 and D3 fract ions is requi red, the [facility] Assur eD(TM ) 25-OH VIT D, (D2,D 3), LC/MS /MS is recom tyrese d: order code 44249 (michelle ents >2yrs ). See Note 1 Note 1 For addit ional infor christoph solis e refer to http: //miroslava land.Que stDia gnost ics.c om/fa q/FAQ 199 (This link is being provi ded for infor matio nal/ educa angelica l purpo ses only. ) Not Available [address] [address] [place], [address], 04/25/2021 12:35:38 04/22/20 21 04/25/2021 HEMOG LOBIN A1C hemoglobin A1C 5.8 %_of_ total _HGB <5.7 high Not Available [address] [address] [place], [address], 04/25/2021 12:35:38 04/22/2004/25/2021 TESTO STERO NE, FREE (DIAL YSIS) AND TOTAL ,MS testosterone , total, MS 13 NG/dL 2-45 For addit ional christoph long refer to https ://ed [facility] on.qu randolphViralNinjas. com/f aq/FA Q165 (This link is being provi ded for infor matio nal/e ducat ional purpo ses only. ) (Note ) This test was devel oped and its mathieu tical perfo rmanc e rhonda cteri stics have been deter mined by [employer]. It has not been clear ed or appro luz by the FDA. This assay has been valid ated pursu ant to the CLIA regul ation s and is used for clini phoebe purpo ses. Not Available [facility] [address] [address] [address] [place], [address], 04/25/2021 12:35:39 04/22/20 21 04/25/2021 TESTO STERO NE, FREE (DIAL YSIS) AND TOTAL ,MS testosterone , free 2.2 pg/mL 0.1-6. 4 (Note ) This test was devel oped and its mathieu tical perfo rmanc e rhonda cteri stics have been deter mined by [employer]. It has not been clear ed or appro luz by the FDA. This assay has been valid ated pursu ant to the CLIA regul ation s and is used for clini phoebe purpo ses. MDF med fusio n [address] [place] [address] [phone] Jani henao MD Not Available [facility] [address], [place], [address], 04/25/2021 12:35:39 Result Notes None recorded. Problems No Known Problems Procedures Surgical History Date Name Laterality Status Provider Name and Address Organization Details Recorded Time Generic Procedure completed CAMILO ZARAGOZA [address], [place], [address], [facility] [place] 04/20/2021 16:07:11 3 delivery completed Moses Thurman [facility] [place] 04/20/2021 15:37:40 0 delivery completed Moses Thurman [facility], [facility] 04/20/2021 15:37:20 Imaging Results None recorded. Procedure Notes None recorded. Medical Equipment None Reported. Allergies Allergen ID Allergen Name Allergen Category Reaction Reaction Severity Criticality Documentation Date Start Date Code Code System Note Provider Name and Address Organization Details Recorded Time 13484 E-Mycin medicatio n itching severe Not available 04/20/202191011 8 RxNorm Moses Thurman [facility] [employer] [facility] [place] 15:07:17 Medications Name Sig Start Date Stop Date Status Note LastModified by Organization Details LastModified Time cyclobenza sydney 10 mg tablet TAKE 1 TABLET BY MOUTH THREE TIMES DAILY NEEDED FOR MUSCLE SPASM active Not Available Not Available No t Available citalopram 40 mg tablet TAKE 1 TABLET BY MOUTH ONCE DAILY active Not Available Not Available No t Available hydrocodon e 5 mg-acetami nophen 325 mg tablet TAKE 1 TABLET BY MOUTH EVERY 6 HOURS NEEDED FOR 7 DAYS active Not Available Not Available No t Available meloxicam 15 mg tablet TAKE 1 TABLET BY MOUTH ONCE DAILY active Not Available Not Available No t Available pantoprazo le 20 mg tablet,del ayed release 1 tablet every day by oral route. 2018 active Not Available Not Available Not Avai lable meloxicam 7.5 mg tablet 1 tablet every day by oral route. active Not Available Not Available No t Available cephalexin 500 mg capsule Take 4 capsules (total of 2g) po one hour prior to procedure . One time dose. 2021 active DO NOT use if PCN and Cephalosp elías Allergies are indicated . Not Available Not Available Not Available pantoprazo le 40 mg tablet,del ayed release TAKE 1 TABLET BY MOUTH ONCE DAILY active Not Available Not Available No t Available mirtazapin e 30 mg tablet TAKE 1 TABLET BY MOUTH NIGHTLY active Not Available Not Available No t Available polymyxin B sulfate 10,000 unit-trime thoprim 1 mg/mL eye drops active Not Available Not Available Not Available montelukas t 10 mg tablet TAKE 1 TABLET BY MOUTH NIGHTLY active Not Available Not Available No t Available diazepam 10 mg tablet Take 1 tablet(s) 30 mins PRIOR to appointme nt PRN and repeat as directed by physician . active Not Available Not Available No t Available metaxalone 800 mg tablet TAKE 1 TABLET BY MOUTH THREE TIMES DAILY active Not Available Not Available No t Available ezetimibe 10 mg tablet TAKE 1 TABLET BY MOUTH ONCE DAILY active Not Available Not Available No t Available metaxalone active Not Available Not Av ailable Not Available Vitals Date Recorded Body height Body mass index (BMI) Body weight Heart rate Systolic And Diastolic Provider Name and Address Organization Details Last Updated DateTime 04/20/2021 160.02 cm 29.9 kg/m2 21778.11 g 66 /min 134/80 mm[Hg] Moses Thurman [facility] 04/20/2021 15:36:11 Social History Question Answer Notes LastModified by Organizat ion Details LastModified Time Tobacco Smoking Status Never Smoker Moses snider [facility] 04/20/2021 15:08:00 Do You Have An Advance Directive? No [email or web address] Information not available 04/20/2021 How Much Tobacco Do You Chew? None [email or web address] Information not available 04/20/2021 Are You Deaf Or Do You Have Serious Difficulty Hearing? No [email or web address] Information not available 04/20/2021 How Many Children Do You Have? 2 [email or web address] Information not available 04/20/2021 What Is Your Relationship Status? [email or web address] Information not available 04/20/2021 Do You Use Your Seat Belt Or Car Seat Routinely? Yes [email or web address] Information not available 04/20/2021 Are You Sexually Active? No [email or web address] Information not available 04/20/2021 Do You Have Smoke And Carbon Monoxide Detectors In Your Home? Yes [email or web address] Information not available 04/20/2021 Do You Use Sunscreen Routinely? No Information not available 04/20/2021 How Many Years Have You Smoked Tobacco? 0 [email or web address] Information not available 04/20/2021 Sex: Unknown Functional Status Question Answer Note LastModified by Organization D etails LastModified Time Are you currently employed? No [email or web address] Information not available 04/20/2021 Mental Status Question Answer Note LastModified by Organization D etails LastModified Time Do you feel stressed (tense, restless, nervous, or anxious, or unable to sleep at night)? [id number] [email or web address] Information not available 04/20/2021 Family History Relationship Description Onset Age of this Age Resolved Age Notes LastModified by Organization Details LastModified Time Father Diabetes mellitus 80 89 [email or web address] Not available 2020 15:07:23 Father Dementia 88 89 [email or web address] Not availabl e 04/20/2021 15:07:23 Medical History Condition Response Heart Problems Y Arthritis Y Fibromyalgia Y Hypertension Y High Cholesterol Y Gynecological HistoryNo gynecological history recorded. Obstetrics History GPAL:G 0 P 0 0 0 0 Past Encounters Encounter ID Performer Location Encounter Start Date Encounter Closed Date Diagnosis/Indication Diagnosis SNOMED-CT Code Diagnosis ICD10 Code Diagnosis Note [id number] CAMILO ZARAGOZA [facility] [address] [facility] [address] [place] [address] 04/20/2021 14:46:12 04/21/2021 14:46:38 Bilateral osteoarthritis of knees [id number] 23050 M17.0 At today's office visit the patient's diagnosis and treatment options were discussed in great detail. The patient was provided with informatio n to make an informativ e decision on the next steps for treatment. The patient has tried several conservati ve measures including but not limited to PT, rest, ice, and NSAIDs with no beneficial relief. Given the imaging results and the duration of the patient's symptoms I would recommend BMAC with fat as they are an excellent candidate. [facility]. The risk and benefits were discussed with the patient as well as functional and pain improvemen t outcomes. The procedure was discussed in detail as well as the recovery period. We discussed screening with R3 and its importance . We also discussed obtaining labs to ensure the patient is optimized for maximal results. I also discussed other conservati ve options. The patients case and treatment plan were reviewed in detail with Dr. Cancino. PLAN: [facility]/fat to bilateral knees with a decomp of bilteral medial compartmen t All questions were answered, the patient understood the treatment plan. Greater than 45 minutes face-to-fa ce visit with more than 50% of my time spent counseling the patient about their diagnosis including pathophysi ology and treatment options. Screening procedure 2012 5006 Z13.9 Z01.812 R53.83 M89.9 M94.9 E55.9 Z13.228 Z13.1 Antibiotic prophylaxis indicated [id number] Z78.9 Health Concerns Section Related Observation LastModified by Organization Detai ls LastModified Time None Recorded Concern Status LastModified by Organization Details LastModified Time None Recorded Advance Directives Directive N: Payers Insurance Date Sequence Insurance Name Policy Number Policy Haas Covered Member ID Haas Member ID Guarantor Name 06/13/2022 1 [place] Jacquie Nesbitt [id number] 1 Jacquie Laz Notes Date Note Type Note Provider Name and Address Organization Details Recorded Time 04/20/2021 text/html 65-year-old fema le comes in today complaining of pain and discomfort in both knees left greater than right. The patient states that she has had pain now for 4 years. Pain is progressively getting worse. Is probably on the medial aspect she describes the pain as aching and intermittent. She rates the pain as a 3/10. She states that she gets pain when using the knees especially with walking. Nonuse does help including rest. She has tried nonsteroidal anti-inflammatories, corticosteroid injections and Synvisc injections which lasted approximately 6 months. She is back to her baseline in regards to pain and discomfort. CAMILO ZARAGOZA [address], [place], [address], [facility], [facility] 04/20/2021 16:08:04 OBGyn Episode No OBEpisode recorded.
--- NOTE | 2025-01-11 10:46 | WPDHOLTEREM ---
Holter/Event Monitor Holter/Event Monitor Date of procedure: 01/02/25 Holter/Event Procedure: 3-7 Day Holter Monitor Indications: Palpitations Conclusion: 1. 3 day and 8 hours holter monitor on 01/02/25. 2. Predominant rhythm is sinus rhythm with episodes of junctional rhythm. HR range 53-143 bpm; average HR 77 bpm. 3. There are rare premature supraventricular complexes, rare supraventricular couplets, and rare supraventricular triplets. There are 2 episode of supraventricular tachycardia with fastest at 143 bpm and longest lasting 5 beats. 4. There are occasional premature ventricular complexes and rare ventricular couplets. No ventricular tachycardia. 5. No significant pauses greater than 3 seconds. 6. No symptoms available for correlation.
== END 2025-01-02 14:33 | disposition home or self-care (01) ==
LOC: ANHCARD 14:34
PROVIDERS: PCP Family Medicine; Visit Provider Student in an Organized Health Care Education/Training Program
DX: I49.1 Atrial premature depolarization (principal); I47.10 Supraventricular tachycardia, unspecified; I49.3 Ventricular premature depolarization; R00.2 Palpitations
CPT/HCPCS: 93242

== ENCOUNTER 2025-04-14 14:16 | Emergency (ER) | payer MEDICARE, SELFPAY ==
--- OUTSIDE RECORDS SUMMARY | 2025-04-12 12:57 | XMS_ITS | Encounter Summary ---
Author Organization [facility] Address [address] [place] [address] Care Team Providers Care Supervisor Edging Name Role Phone Tiffanie Agustin NP Primary Care Provider [phone] Reason for Referral * Cardiology (Routine) - Closed Specialty Diagnoses / Procedures Referred By Levon blanton Referred To Contact Diagnoses Palpitations Procedures Transthoracic Echo (TTE) Complete W Doppler/CF Yoan Guallpa MD [address] [place] [address] [address] TREJO [address] [address] Phone: tel: fax: [address] [phone] Referral ID Status Reason Start Date Expiration Date Visits Re quested Visits Authorized [id number] Closed 02/21/2025 03/23/2026 1 1 Reason for Visit * Cardiology (Routine) - Closed Specialty Diagnoses / Procedures Referred By Levon blanton Referred To Contact Diagnoses Palpitations Procedures Transthoracic Echo (TTE) Complete W Doppler/CF Yoan Guallpa MD [address] [place] [address] [address] TREJO [address] [address] Phone: tel: fax: [address] [phone] Referral ID Status Reason Start Date Expiration Date Visits Re quested Visits Authorized [id number] Closed 02/21/2025 03/23/2026 1 1 Encounter Details Date Type Department Care Team (Latest Contact Info) Description 04/12/2025 12:57 PM CDT - 04/12/2025 11:59 PM CDT Hospital Encounter [facility] Cardiac Testing [address] [place] [address] Palpitations Discharge Disposition: Discharge to home or self care Social History Tobacco Use Types Packs/Day Years Used Date Smoking Tobacco: Never Smokeless Tobacco: Never Alcohol Use Standard Drinks/Week Comments No 0 (1 standard drink = 0.6 oz pur e alcohol) Social Connection and Isolation Panel Answer Date Recorded In a typical week, how many times do you talk on the phone with family, friends, or neighbors? More than three times a week 12/17/2022 How often do you get togethe r with friends or relatives? More than three times a week 12/17/2022 How often do you attend chur ch or alevism services? More than 4 times per year 12/17/2022 Do you belong to any clubs o r organizations such as pentecostalism groups, unions, fraternal or athletic groups, or school groups? No 12/17/2022 How often do you attend meet ings of the clubs or organizations you belong to? Never 12/17/2022 Are you , , di vorced, , never , or living with a partner? 12/17/2022 Overall Financial Resource Strain (CARDIA) Answe r Date Recorded How hard is it for you to pa y for the very basics like food, housing, medical care, and heating? Not hard at all 12/17/2022 PHQ-2 Answer Date Recorded PHQ-2 Total Score (If total score is 3 or more points, staff should administer the PHQ-9) 0 03/25/2025 PRAPARE - Transportation Answer Date Re corded [...] place to sleep or slept in a fci (including now)? No 12/17/2022 PHQ-9 Answer Date Recorded PHQ-9 Total Score 3 02/04/2025 AUDIT-C Answer Date Recorded Q1: How often do you have a drink containing alc ohol? 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 Gender Identity Female 11/27/2022 8:14 AM CDT Sexual Orientation Straight 07/06/2022 12 :07 AM ORACLE WEBCENTER CONSULTANT documented as of this encounter Medications at Time of Discharge calcium carbonate-vitamin D3 1500 mg (600 mg elemental) -200 units per tablet Take 1 tablet by mouth daily ezetimibe (ZETIA) 10 mg tablet Take 1 tablet (10 mg total) by mouth daily metaxalone (SKELAXIN) 800 mg tabletIndications :Fibromyalgia Take 1 tablet (800 mg total) by mouth 3 (three) times a day as needed for muscle spasms for muscle spasms 90 tablet 1 03/25/2025 mv,Ca,min-FA-herb al no.157 400 mcg tablet Take 1 tablet by mouth daily mv,with Xn-fgsb-JR-lut-17 9herb 13.5-200-250 mg-mcg-mcg tablet Take by mouth venlafaxine XR (EFFEXOR-XR) 150 mg 24 hr capsule TAKE 1 CAPSULE BY MOUTH ONCE DAILY IN THE MORNING 03/20/2025 venlafaxine XR (EFFEXOR-XR) 75 mg 24 hr capsule TAKE 3 CAPSULES BY MOUTH IN THE MORNING documented as of this encounter Discharge Disposition Disposition Code Departure Means Destination Discharge to home or self care documented in this encounter Plan of Treatment Not on file documented as of this encounter Procedures Procedure Name Priority Date/Time Associated Diagnosis Comments TRANSTHORACIC ECHO (TTE) COMPLETE W DOPPLER/CF WO CONTRAST Routine 04/12/2025 1:47 PM CDT Palpitations documented in this encounter Results * TRANSTHORACIC ECHO (TTE) COMPLETE W DOPPLER/CF WO CONTRAST (04/12/2025 1:47 PM CDT) EF Mod BP 63 % CONS SCIMAGE Anatomical Region Laterality Modality Ultrasound 04/12/2025 1:05 PM CDT Narrative 04/12/2025 4:12 PM CDT Transthoracic Echocardiographic Report ADDENDUM Patient Name: LEROY NESBITT J : 1955 (69y 11m) Sex: F Study Date: 04/12/2025 01:05:32 PM Ht(Inch): 62 Wt(Lb): 159 BSA: 1.73 Fibreglass Lay Up Worker: Akosua Amezquita RDCS Order Provider: YOAN GUALLPA Heart Rate: 71 BMI: 29.08 BP: 128 / 72 Ref Provider: YOAN GUALLPA PROCEDURES: Echocardiographic Report: ([id number]) Transthoracic complete echo, 2D, spectral and tissue Doppler, color flow Doppler, M-mode. INDICATIONS: R00.2 Palpitations. FINDINGS: Left Ventricle: Normal left ventricular cavity size. Normal Left ventricular wall thickness. Normal left ventricular systolic function. The Ejection Fraction (Durán's) is measured at 63 %. Diastolic Function Left ventricular diastolic function is normal. Regional Wall Motion: There are no regional wall motion abnormalities. Right Ventricle: Normal right ventricular size. Normal right ventricular systolic function. Left Atrium: The left atrium is normal in size. Right Atrium: The right atrium is normal in size. Atrial Septum: No shunt by color Doppler. Mitral Valve: Normal mitral valve leaflet structure. No mitral regurgitation seen. No mitral valve stenosis. Aortic Valve: Trileaflet aortic valve. No aortic regurgitation seen. No aortic valve stenosis. The mean transaortic gradient is 5 mmHg. The aortic valve area by the continuity equation (using VTI) is 2.1 cm2. Tricuspid Valve: The tricuspid valve demonstrates normal leaflet structure. No tricuspid regurgitation seen. PASP cannot be evaluated due to lack of adequate TR jet. No tricuspid valve stenosis. Pulmonic Valve: No evidence of pulmonic regurgitation. Pericardium: Normal pericardium without evidence of pericardial effusion. Aorta: Normal aortic root. The aortic sinus is normal in size. The ascending aorta is normal in size. IVC: IVC is normal in size. CONCLUSIONS: 1. Normal left ventricular cavity size. Normal Left ventricular wall thickness. Normal left ventricular systolic function. The Ejection Fraction (Durán's) is measured at 63 %. Diastolic Function Left ventricular diastolic function is normal. 2. Normal right ventricular size. Normal right ventricular systolic function. 3. Normal mitral valve leaflet structure. No mitral regurgitation seen. No mitral valve stenosis. 4. Trileaflet aortic valve. No aortic regurgitation seen. No aortic valve stenosis. The mean transaortic gradient is 5 mmHg. The aortic valve area by the continuity equation (using VTI) is 2.1 cm2. 5. The tricuspid valve demonstrates normal leaflet structure. No tricuspid regurgitation seen. PASP cannot be evaluated due to lack of adequate TR jet. No tricuspid valve stenosis. MEASUREMENTS: 2D/MM Value Range Doppler Value LVIDd 2D 4.00 cm [ 3.50 - 5.70 ] AV Peak Jose 1.39 m/s LVIDs 2D 2.00 cm [ 3.10 - 4.60 ] AV Peak PG 7.73 mmHg IVSd 2D 0.60 cm [ 0.60 - 1.20 ] AV Mean PG 5.00 mmHg LVPWd 2D 1.00 cm [ 0.60 - 1.10 ] AV VTI 26.80 cm LV Thickness Ratio 0.60 LVOT Peak Jose 0.99 m/s LV Mass 2D 95.51 g LVOT Peak PG 3.92 mmHg LV Mass Index 2D 55.08 g/m2 LVOT Mean PG 2.00 mmHg RWT 0.50 LVOT VTI 17.90 cm EDV Mod BP 47.80 ml [ 46.00 - 106.00 ] LVOT Diam 2.00 cm LV EDV Index 27.57 ml/m2 SV LVOT 56.00 cm3 ESV Mod BP 17.90 ml [ 14.00 - 42.00 ] KARRIE VTI 2.10 cm2 EF Mod BP 63 % [ 54 - 74 ] KARRIE Vmax 2.24 cm2 LA Dimension 2D 2.40 cm [ 1.90 - 4.00 ] LVOT/AV VTI 0.67 - Dimensionless index (DVI) LA Length 2C 3.36 cm MV E Peak Jose 0.53 m/s LA Length 4C 2.94 cm MV A Peak Jose 0.70 m/s LA Volume BP 18.10 ml MV E/A 0.70 ratio LA Volume Index 10.44 ml/m2 [ 16.00 - 34.00 ] MV Decel Time 235.00 msec RVDd 2D 2.70 cm [ 2.00 - 3.00 ] Med E` Jose 0.10 m/s AoR Diam 2D 2.50 cm [ 2.00 - 3.70 ] Lat E` Jose 0.10 m/s Ao Root Index 1.44 cm/m2 [ 1.00 - 2.00 ] Average E/E` 530.00 RV S` 0.17 m/s TR Peak Jose 2.00 m/s TR Peak PG 16.0 mmHg PV Peak Jose 0.87 m/s PV Peak PG 3.03 mmHg - ATTESTATION: I have reviewed and interpreted the pertinent images and measurements of this study. I attest to the conclusions in the final report that is provided above. DISCLAIMER: The study images and the final report will be retained in the patient chart by the [facility] for the legally required time period. This chart constitutes the legal record of any testing performed. Electronically Signed By: Yung Meade MD 2025-04-12 16:12:15 CDT Electronically Amended By: Yung Meade MD 04/12/2025 4:13:54 PM CDT [ADDENDUM] Procedure Note Yung Meade MD - 04/12/2025 Transthoracic Echocardiographic Report ADDENDUM Patient Name: LEROY NESBITT J : 1955 (69y 11m) Sex: F Study Date: 04/12/2025 01:05:32 PM Ht(Inch): 62 Wt(Lb): 159 BSA: 1.73 Fibreglass Lay Up Worker: Akosua Amezquita RDCS Order Provider: YOAN GUALLPA Heart Rate: 71 BMI: 29.08 BP: 128 / 72 Ref Provider: YOAN GUALLPA PROCEDURES: Echocardiographic Report: ([id number]) Transthoracic complete echo, 2D,spectral and tissue Doppler, color flow Doppler, M-mode. INDICATIONS: R00.2 Palpitations. FINDINGS: Left Ventricle: Normal left ventricular cavity size. Normal Leftventricular wall thickness. Normal left ventricular systolic function. The EjectionFraction (Durán's) is measured at 63 %. Diastolic Function Left ventricular diastolicfunction is normal. Regional Wall Motion: There are no regional wall motion abnormalities. Right Ventricle: Normal right ventricular size. Normal right ventricularsystolic function. Left Atrium: The left atrium is normal in size. Right Atrium: The right atrium is normal in size. Atrial Septum: No shunt by color Doppler. Mitral Valve: Normal mitral valve leaflet structure. No mitralregurgitation seen. No mitral valve stenosis. Aortic Valve: Trileaflet aortic valve. No aortic regurgitation seen. Noaortic valve stenosis. The mean transaortic gradient is 5 mmHg. The aortic valve areaby the continuity equation (using VTI) is 2.1 cm2. Tricuspid Valve: The tricuspid valve demonstrates normal leafletstructure. No tricuspid regurgitation seen. PASP cannot be evaluated due to lack of adequate TRjet. No tricuspid valve stenosis. Pulmonic Valve: No evidence of pulmonic regurgitation. Pericardium: Normal pericardium without evidence of pericardialeffusion. Aorta: Normal aortic root. The aortic sinus is normal in size. Theascending aorta is normal in size. IVC: IVC is normal in size. CONCLUSIONS: 1. Normal left ventricular cavity size. Normal Left ventricular wallthickness. Normal left ventricular systolic function. The Ejection Fraction (Durán's) ismeasured at 63 %. Diastolic Function Left ventricular diastolic function is normal. 2. Normal right ventricular size. Normal right ventricular systolicfunction. 3. Normal mitral valve leaflet structure. No mitral regurgitation seen. Nomitral valve stenosis. 4. Trileaflet aortic valve. No aortic regurgitation seen. No aortic valvestenosis. The mean transaortic gradient is 5 mmHg. The aortic valve area by thecontinuity equation (using VTI) is 2.1 cm2. 5. The tricuspid valve demonstrates normal leaflet structure. No tricuspidregurgitation seen. PASP cannot be evaluated due to lack of adequate TR jet. Notricuspid valve stenosis. MEASUREMENTS: 2D/MM Value Range DopplerValue LVIDd 2D 4.00 cm [ 3.50 - 5.70 ] AV Peak Vel1.39 m/s LVIDs 2D 2.00 cm [ 3.10 - 4.60 ] AV Peak PG7.73 mmHg IVSd 2D 0.60 cm [ 0.60 - 1.20 ] AV Mean PG5.00 mmHg LVPWd 2D 1.00 cm [ 0.60 - 1.10 ] AV VTI26.80 cm LV Thickness Ratio 0.60 LVOT Peak Vel0.99 m/s LV Mass 2D 95.51 g LVOT Peak PG3.92 mmHg LV Mass Index 2D 55.08 g/m2 LVOT Mean PG2.00 mmHg RWT 0.50 LVOT VTI17.90 cm EDV Mod BP 47.80 ml [ 46.00 - 106.00 ] LVOT Diam2.00 cm LV EDV Index 27.57 ml/m2 SV LVOT56.00 cm3 ESV Mod BP 17.90 ml [ 14.00 - 42.00 ] KARRIE VTI2.10 cm2 EF Mod BP 63 % [ 54 - 74 ] KARRIE Vmax2.24 cm2 LA Dimension 2D 2.40 cm [ 1.90 - 4.00 ] LVOT/AV VTI0.67 - Dimensionless index (DVI) LA Length 2C 3.36 cm MV E Peak Vel0.53 m/s LA Length 4C 2.94 cm MV A Peak Vel0.70 m/s LA Volume BP 18.10 ml MV E/A0.70 ratio LA Volume Index 10.44 ml/m2 [ 16.00 - 34.00 ] MV Decel Sisu666.00 msec RVDd 2D 2.70 cm [ 2.00 - 3.00 ] Med E` Vel0.10 m/s AoR Diam 2D 2.50 cm [ 2.00 - 3.70 ] Lat E` Vel0.10 m/s Ao Root Index 1.44 cm/m2 [ 1.00 - 2.00 ] Average E/E`530.00 RV S` 0.17 m/s TR Peak Jose 2.00 m/s TR Peak PG 16.0 mmHg PV Peak Jose 0.87 m/s PV Peak PG 3.03 mmHg - ATTESTATION: I have reviewed and interpreted the pertinent images and measurements ofthis study. I attest to the conclusions in the final report that is provided above. DISCLAIMER: The study images and the final report will be retained in the patientchart by the [facility] Laboratory for the legally required time period. This chart constitutesthe legal record of any testing performed. Electronically Signed By: Yung Meade MD 2025-04-12 16:12:15 CDT Electronically Amended By: Yung Meade MD 04/12/2025 4:13:54 PM CDT [ADDENDUM] Yoan Guallpa MD CV ECHO PROCEDURES Edited Resu lt - Final documented in this encounter Visit Diagnoses Diagnosis Palpitations documented in this encounter Orders Medications Ordered That Ronak ht Not Have Been Administered Count Last Ordered Date First Ordered Date perflutren lipid (DEFINITY) 1.5 mL in sodium chloride 0.9% 10 mL syringe 1 04/12/2025 documented in this encounter Care Teams Supervisor Edging Relationship Specialty Start Date End Date Tiffanie Agustin NP [address] [place] [id number] PCP - General Family Medicine 02/04/25 documented as of this encounter
--- NOTE | ~2025-04-14 | CT_ITS ---
EXAMINATION: CT abdomen pelvis wo con, 04/14/2025 14:40 CDT HISTORY: l flank pain, suspect stone COMPARISON: No comparisons available. TECHNIQUE: CT scan of the abdomen and pelvis was performed without IV contrast. One or more of the following dose reduction techniques were used: automated exposure control, adjustment of the mA and/or kV according to patient size, use of iterative reconstruction technique. Unless otherwise stated, incidental findings do not require dedicated follow up imaging FINDINGS: CT abdomen: LUNG BASES: The lung bases are clear. The visualized portions of the heart and pericardium are unremarkable. LIVER: Moderate hepatic steatosis. SPLEEN: Unremarkable, no splenomegaly. KIDNEYS: Right Kidney: Unremarkable. No calculi. No hydronephrosis. Left Kidney: Left kidney mild hydronephrosis and hydroureter due to an obstructing distal 2 x 2 millimeter ureteral calculus. ADRENAL GLANDS: Unremarkable. PANCREAS: Unremarkable. GALLBLADDER/BILIARY: Unremarkable. No biliary dilatation. STOMACH AND ESOPHAGUS: Visualized stomach and esophagus within normal limits. BOWEL/MESENTERY: Moderate fecal content, no colitis or diverticulitis. Appendix normal. Mesentery normal. No dilated or thickened loops of small bowel. ADENOPATHY/RETROPERITONEUM: No lymphadenopathy. AORTA/VASCULATURE: Normal caliber aorta. FREE FLUID OR FREE AIR: No free fluid.. CT pelvis: SOLID ORGANS/REPRODUCTIVE: Post hysterectomy. No adnexal mass. BLADDER: Within normal limits. OSSEOUS STRUCTURES: No acute osseous abnormality.No suspicious lesions. OVERLYING SOFT TISSUES: Unremarkable. IMPRESSION: Left-sided obstructive uropathy Reviewed, dictated and finalized at location P.
[2025-04-14 14:17] VITALS: BP 154/78; PULSE 74; RESP 15; TEMP 36.5; O2SAT 99
--- OUTSIDE RECORDS SUMMARY | 2025-04-14 14:19 | XMS_ITS | Encounter Summary ---
Author Organization [facility] Address [address] [place] [address] Care Team Providers Care Sales Account Specialist Name Role Phone Keon Butterfield MD Primary Care Provider [phone] Radha Vanegas MD Primary Care Provider [phone] Encounter Details Date Type Department Care Team (Late st Contact Info) Description 10/17/2018 Lab Requisition [facility] Care DermPath Lab [address] [facility] [place] [address] Raeann Carlisle, [address] [facility] [address] [place] [address] Social History Tobacco Use Types Packs/Day Years Used Date Smoking Tobacco: Former Cigarettes Smokeless Tobacco: Never Comments:1 month in her 30s Alcohol Use Standard Drinks/Week Comments No 0 (1 standard drink = 0.6 oz pur e alcohol) Comments No Sex and Gender Information Value Date Recorded Sex Assigned at Not on file Legal Sex Female 6:02 AM ENGINE SPECIALIST Gender Identity Not on file Sexual Orientation Not on file documented as of this encounter Plan of Treatment Not on file documented as of this encounter Procedures Procedure Name Priority Date/Time Associated Diagnosis Comments DERMATOPATHOLOGY Routine 10/16/2018 12:0 0 AM CDT documented in this encounter Results * DERMATOPATHOLOGY (10/16/2018 12:00 AM CDT) Case Report Dermatopathology Report Case: [id number] Authorizing Provider: Raeann Carlisle DO Collected: 10/16/2018 [...] The specimen consists of a shave measuring [id number]. Jar 0. 12:31 PM CDT DERMATOPATHOLOGY LABORATORY [...] characteristic determined by the Dermatopathology Laboratory at [facility], directed by Dr. Mary Carmen Benson. These tests need not be, and therefore are not, approved by the [place] Food and Drug Administration. The tests are used for clinical purposes. Billing Codes Specimen Charges Stain Charges 95988 1 9 12:31 PM CDT DERMATOPATHOLOGY LABORATORY Embedded Images 9 12:31 PM CDT DERMATOPATHOLOGY LABORATORY Pathology/Cytolog y TISSUE SPECIMEN FROM SKIN / Unknown 10/16/2018 10/17/2018 10:51 AM CDT Raeann Carlisle DO LAB - PATHOLOGY/CYTOLOGY ORDERABLES Final Result DERMATOPATHOLOGY LABORATORY [facility] - Department of Dermatology [address] [place] [address], 5th Floor Lab [address] [phone] documented in this encounter Visit Diagnoses Not on filedocumented in this encounter Care Teams Sales Account Specialist Relationship Specialty Start Date End Date Keon Butterfield MD [address] [place] [address] PCP - General 08/01/18 11/12/23 Radha Vanegas MD PCP - General Family Medicine 11/13/23 documented as of this encounter
--- OUTSIDE RECORDS SUMMARY | 2025-04-14 14:19 | XMS_ITS | Clinical Summary ---
Author Organization [facility] [place] [address] [facility] Address [address] [place] [address] Care Team Providers Care Scorer Helper Name Role Phone Tiffanie Agustin NP Primary Care Provider [phone] Allergies Active Allergy Reactions Criticality Noted Date Comments Diclofenac Rash Medium 01/14/2015 Duloxetine Mental status changes Low 11/18/2022 Erythromycin Vomiting Reaction: Vomiting, Ethyl Alcohol Other (See comments) Low 09/29/2012 Sulfa (Sulfonamide Antibiotics) Muscle pain Medium 12/04/2015 Medications calcium carbonate-vitamin D3 1500 mg (600 mg elemental) -200 units per tablet Take 1 tablet by mouth daily Active venlafaxine XR (EFFEXOR-XR) 75 mg 24 hr capsule TAKE 3 CAPSULES BY MOUTH IN THE MORNING Active mv,with Xx-omav-[id number]-17 9herb 13.5-200-250 mg-mcg-mcg tablet Take by mouth Active ezetimibe (ZETIA) 10 mg tablet Take 1 tablet (10 mg total) by mouth daily Active venlafaxine XR (EFFEXOR-XR) 150 mg 24 hr capsule TAKE 1 CAPSULE BY MOUTH ONCE DAILY IN THE MORNING 03/20/20 25 Active metaxalone (SKELAXIN) 800 mg tabletIndications :Fibromyalgia Take 1 tablet (800 mg total) by mouth 3 (three) times a day as needed for muscle spasms for muscle spasms 90 tablet 1 10/06/20 25 Active mv,Ca,min-FA-herb al no.157 400 mcg tablet Take 1 tablet by mouth daily Active metaxalone (SKELAXIN) 800 mg tablet Take 1 tablet by mouth three times daily as needed for muscle spasm 90 tablet 08/12/19 24 025 Discontinued(R eorder) fexofenadine (YUDELKA) 180 mg tablet Take 1 tablet (180 mg total) by mouth daily 025 Discontinued rosuvastatin (CRESTOR) 5 mg tabletIndications :Hyperlipidemia, unspecified hyperlipidemia type Take 1 tablet (5 mg total) by mouth daily 30 tablet 11 02/22/20 025 Discontinued(A lternate therapy) baclofen (LIORESAL) 10 mg tablet Take 1 tablet (10 mg total) by mouth 2 (two) times a day 02/22/20 025 Discontinued(T herapy completed) Active Problems Problem Noted Date Diagnosed Date Short-term memory loss 03/25/2025 Assessment & Plan (03/25/2025 10:08 AM CDT): Performed mini-mental exam, scored 30/30 Offered referral to [facility], not interested at this time Not immune to hepatitis B virus 02/25/2025 Assessment & Plan (03/25/2025 8:13 AM CDT): Discussed screening/vaccination in depth and patient understands all risk and benefits associated with proposed therapies and currently declines, has been encouraged to call if changes mind. GERD (gastroesophageal reflux disease) Assessment & Plan (02/11/2025 8:47 AM CDT): Controlled Continued on PRN Tums Sicca syndrome 02/06/2025 Assessment & Plan (02/11/2025 8:47 AM CDT): Asymptomatic Will monitor Bunion 02/06/2025 Assessment & Plan (02/11/2025 8:48 AM CDT): Managed Will continue to wear shoes with wide foot bed TMJ (temporomandibular joint disorder) Assessment & Plan (02/11/2025 8:48 AM CDT): Asymptomatic Will monitor Irritable bowel syndrome with diarrhea Assessment & Plan (02/11/2025 8:49 AM CDT): Asymptomatic Will monitor for food/stress as triggers Atherosclerosis of aorta 02/06/2025 Assessment & Plan (02/11/2025 8:50 AM CDT): Symptomatic with palpitations Referral made to cardiology, advised to keep upcoming appointment Allergic rhinitis 02/06/2025 Assessment & Plan (02/11/2025 8:50 AM CDT): Controlled Continued on fexofenadine Hot flashes 02/06/2025 Assessment & Plan (02/11/2025 8:51 AM CDT): Encouraged to schedule appointment with gynecology, previously referred Assessment & Plan (02/06/2025 5:31 AM CDT): Ordered labs Will monitor for worsening Menopause 02/06/2025 Palpitations 02/06/2025 Assessment & Plan (02/11/2025 8:51 AM CDT): Symptomatic with palpitations Referral made to cardiology, advised to keep upcoming appointment Assessment & Plan (02/06/2025 5:31 AM CDT): Uncontrolled Referral made to cardiology for further evaluation and management Prediabetes 02/04/2025 Assessment & Plan (03/25/2025 10:07 AM CDT): Recommended diet low in concentrated sweets, such as desserts, juice, soda, and sweet tea, and limiting starchy foods, such as white potatoes, rice, pasta, and corn Assessment & Plan (02/11/2025 8:40 AM CDT): Recommended diet low in concentrated sweets, such as desserts, juice, soda, and sweet tea, and limiting starchy foods, such as white potatoes, rice, pasta, and corn Assessment & Plan (02/06/2025 5:29 AM CDT): Recommended diet low in concentrated sweets, such as desserts, juice, soda, and sweet tea, and limiting starchy foods, such as white potatoes, rice, pasta, and corn CKD (chronic kidney disease) stage 2, GFR 60-89 ml/min 02/04/2025 Assessment & Plan (02/11/2025 8:40 AM CDT): Stable Discussed avoidance of NSAIDs Will monitor Assessment & Plan (02/06/2025 5:29 AM CDT): Stable Will monitor PVCs (premature ventricular contractions) 2024 Assessment & Plan (02/11/2025 8:46 AM CDT): Symptomatic with palpitations Referral made to cardiology, advised to keep upcoming appointment Assessment & Plan (02/06/2025 5:30 AM CDT): Symptomatic with palpitations Referral made to cardiology Low bone mass 02/04/2025 Assessment & Plan (02/11/2025 8:47 AM CDT): Continued on daily calcium supplement Encouraged weight-bearing exercise Assessment & Plan (02/06/2025 5:30 AM CDT): Continued on daily calcium supplement Encouraged weight-bearing exercise Moderate episode of recurrent major depressive d isorder 10/15/2022 Assessment & Plan (03/25/2025 10:07 AM CDT): Controlled Reviewed PHQ-2=0 Continued on venlafaxine XR 225 mg daily Encouraged to follow-up with Psychiatry as recommended Assessment & Plan (02/11/2025 8:44 AM CDT): Controlled Reviewed PHQ-2=0, ETTA-7 previously 2 Continued on venlafaxine XR 75 mg daily Encouraged to follow-up with Psychiatry as recommended Assessment & Plan (02/06/2025 5:28 AM CDT): Controlled Reviewed PHQ-9=3, ETTA-7=2 Continued on venlafaxine XR 75 mg daily Encouraged to follow-up with Psychiatry as recommended Assessment & Plan (10/15/2022 4:05 PM CDT): Discontinued mirtazapine 2 months ago after experiencing muscle spasms in legs, spasms resolved. Worsening depression in the past 2 months, will prescribed trazodone for sleep. Explained medication interactions with use of Skelaxin and increased risk of serotonin syndrome. Patient is agreeable to DC. Follow up in 3 months, patient with supportive family. Denies any SI/HI Mixed hyperlipidemia 01/25/2022 Assessment & Plan (03/25/2025 10:06 AM CDT): Uncontrolled Continued on Zetia Recommended low fat/low cholesterol diet, high in fiber and plant PRO (tofu, soybeans, quinoa, black beans, chickpeas/garbanzo beans, lentils, hemp/kandy seeds, nuts, red kidney beans, soy milk, peas, amaranth), with exercise most days of the week, for a minimum of 150 minutes of exercise/week Assessment & Plan (02/11/2025 8:42 AM CDT): Uncontrolled Continued on Zetia Recommended low fat/low cholesterol diet, high in fiber and plant PRO (tofu, soybeans, quinoa, black beans, chickpeas/garbanzo beans, lentils, hemp/kandy seeds, nuts, red kidney beans, soy milk, peas, amaranth), with exercise most days of the week, for a minimum of 150 minutes of exercise/week Assessment & Plan (02/06/2025 5:27 AM CDT): Uncontrolled Continued on Zetia Recommended low fat/low cholesterol diet, high in fiber and plant PRO (tofu, soybeans, quinoa, black beans, chickpeas/garbanzo beans, lentils, hemp/kandy seeds, nuts, red kidney beans, soy milk, peas, amaranth), with exercise most days of the week, for a minimum of 150 minutes of exercise/week Assessment & Plan (01/25/2022 11:36 AM CDT): 01/2022 TC 190 HDL 52 TRG 180 LDL 102 Stable: Continue Zetia 10 mg tablet once daily. Reviewed diet and exercise recommendations. Encounter for Medicare annual wellness exam 01/2022 Assessment & Plan (02/11/2025 8:43 AM CDT): Reviewed past and current medical history, surgical history, social history, family history, current medications, and allergies. The chart was updated to identify any changes in these areas. Assessment & Plan (01/25/2022 11:44 AM CDT): [...] received within 2 weeks of test submission. Screening for breast cancer 07/12/2018 Overweight (BMI 25.0-29.9) 07/12/2018 Assessment & Plan (02/11/2025 8:41 AM CDT): Worsened Encouraged to: Make healthy food choices, limiting intake of concentrated sweets, cholesterol, and saturated fat Monitor daily caloric intake and portion sizes Exercise most days of the week for a goal of at least 150 minutes of exercise per week Assessment & Plan (02/06/2025 5:26 AM CDT): Worsened Encouraged to: Make healthy food choices, limiting intake of concentrated sweets, cholesterol, and saturated fat Monitor daily caloric intake and portion sizes Exercise most days of the week for a goal of at least 150 minutes of exercise per week Assessment & Plan (07/12/2018 2:41 PM DISTRICT ADMINISTRATIVE ASSISTANT): Diet= low-carb Limit white bread, rice, pasta, potatoes, juice, energy drinks, coffee creamers with sugar, sugar sodas, candy, cake, cookies, ice cream. Be more careful with starchy vegetables like corn, carrots, and fruits. Stay away from processed foods, fast foods, fried foods. The cornerstone of this diet is lean grilled meats, green salads or cooked greens, fat-free milk, cottage cheese, nuts like [id number], protein bars with 10-15 g of protein and 20-30 g of carbohydrate. Choose whole grain breads and pastas, brown rice, sweet potatoes, read onions--these whole grains absorb more slowly thus blood sugar does not surge so high so quickly. Avoid drinking juice, eat a piece of fruit instead. Fibromyalgia 02/20/2015 Assessment & Plan (03/25/2025 10:06 AM CDT): Controlled Continued on metaxalone Assessment & Plan (02/11/2025 8:43 AM CDT): Controlled Continued on metaxalone Assessment & Plan (02/06/2025 5:31 AM CDT): Controlled Continued on metaxalone Assessment & Plan (10/15/2022 4:20 PM CDT): Stable, prescribed tizanidine prn. Resolved Problems Problem Noted Date Diagnosed Date Resolved Date Encounter to establish care 02/06/2025 02/11/2025 Assessment & Plan (02/06/2025 5:30 AM CDT): Reviewed past and current medical history, surgical history, social history, family history, current medications, and allergies. The chart was updated to identify any changes in these areas. Labial lesion 10/15/2022 02/04/2025 Assessment & Plan (10/15/2022 3:54 PM CDT): Benign appearing papules present on bilateral labia, recommended further evaluation with gynecology. Patient will call to schedule follow up with Market Development Manager, referral placed. Encounter for preoperative e xamination for general surgical procedure 07/01/2022 02/04/2025 Assessment & Plan (07/01/2022 11:53 AM DISTRICT ADMINISTRATIVE ASSISTANT): Reviewed past medication history. No sleep apnea, cardiac disease, or smoking history. EKG completed today, NSR. Cleared for upcoming surgery. Bilateral primary osteoarthritis of knee 09/23/2020 02/04/2025 Assessment & Plan (01/25/2022 12:59 PM CDT): Continues meloxicam use. Following with ortho for injections as needed. Visual disturbance 10/13/2018 Scaly patch rash 07/12/2018 02/04/2025 Assessment & Plan (07/13/2018 11:20 AM DISTRICT ADMINISTRATIVE ASSISTANT): Sporadic small scaly dry red patches on [...] 2.5 % lotion Will try oral Fluconazole Encounters Date Type Department Care Team Description 04/12/2025 12:57 PM CDT - 04/12/2025 11:59 PM CDT Hospital Encounter [facility] Cardiac Testing [address] [place] [address] Palpitations Discharge Disposition: Discharge to home or self care 03/28/2025 Telephone [facility] [place] [address] [place] [address] [address] [place] [phone] Tiffanie Agustin NP 03/25/2025 7:45 AM CDT Office Visit [facility] [place] [address] [place] [address] [address] [place] [phone] Tiffanie Agustin NP Short-term memory loss (Primary Dx); Fibromyalgia; Moderate episode of recurrent major depressive disorder (HCC); Mixed hyperlipidemia; Prediabetes; Not immune to hepatitis B virus; Need for vaccination 03/18/2025 1:00 PM CDT Office Visit [facility] Obstetrical Gynecology [address] [facility] [address] [place] [phone] Go George MD Menopausal symptoms (Primary Dx) 02/25/2025 10:20 AM CDT Lab [facility] Office Building [address] [place] [id number] Prediabetes; Low bone mass; Screening for thyroid disorder; Mixed hyperlipidemia; CKD (chronic kidney disease) stage 2, GFR 60-89 ml/min; Screening, anemia, deficiency, iron; Need for hepatitis C screening test; Need for hepatitis B screening test 02/25/2025 Results Follow-Up [facility] Family Medicine [address] [phone] Tiffanie Agustin NP Hemoglobin A1c, Vitamin D 25 hydroxy, Thyroid Function [place], Additional followed-up results: 9 02/21/2025 1:30 PM CDT Office Visit [facility] Cardiology [address] [facility] [address] [place] [address] Yoan Guallpa MD Hyperlipidemia, unspecified hyperlipidemia type (Primary Dx); Palpitations 02/11/2025 8:15 AM CDT Office Visit [facility] at [address] [phone] Tiffanie Agustin NP Encounter for Medicare annual wellness exam (Primary Dx); Prediabetes; CKD (chronic kidney disease) stage 2, GFR 60-89 ml/min; Mixed hyperlipidemia; Overweight (BMI 25.0-29.9); Moderate episode of recurrent major depressive disorder (HCC); Sicca syndrome; Fibromyalgia; Low bone mass; Gastroesophageal reflux disease, unspecified whether esophagitis present; PVCs (premature ventricular contractions); Palpitations; Allergic rhinitis, unspecified seasonality, unspecified trigger; Bunion; TMJ (temporomandibular joint disorder); Irritable bowel syndrome with diarrhea; Atherosclerosis of aorta; Hot flashes 02/06/2025 Telephone [facility] at [address] [phone] Tiffanie Agustin NP Medical Question/Miscellaneous 02/04/2025 11:30 AM CDT Office Visit [facility] at [address] [phone] Tiffanie Agustin NP Encounter to establish care (Primary Dx); Moderate episode of recurrent major depressive disorder (HCC); PVCs (premature ventricular contractions); Palpitations; Mixed hyperlipidemia; Prediabetes; CKD (chronic kidney disease) stage 2, GFR 60-89 ml/min; Low bone mass; Fibromyalgia; Menopause; Hot flashes; Overweight (BMI 25.0-29.9); Screening for thyroid disorder; Encounter for screening mammogram for malignant neoplasm of breast; Need for hepatitis B screening test; Need for hepatitis C screening test; Screening, anemia, deficiency, iron from Last 3 Months Immunizations Immunization Administration Dates Next Due Influenza, Quadrivalent, Hig h Dose, Preservative Free, Intrr 07/07/2023 Influenza, Quadrivalent, Spl it, Preservative Free, Intramuscular 03/31/2020,02/22/2019,05/05/2018,04/15 Influenza, Trivalent, High D ose, Split, Preservative Free, Intramuscular 03/25/2025,05/20/2011 Influenza, Trivalent, IM (MDV) 05/21/2010 Influenza, Trivalent, Preser vative Free, Intramuscular 03/15/2016,02/20/2015,05/21/2014,03/27,03/29/2012 Influenza, Unspecified 03/20/2023(Deferr ed: Patient Refused),12/22/2022(Deferred: Patient Refused),11/10/2022(Deferred: Patient Refused),07/01/2022(Deferred: Patient Refused),03/20/2022(Deferred: Patient Refused),02/18/2022(Deferred: Patient Refused),02/18/2022(Deferred: Patient Refused),06/20/2021(Deferred: Patient Refused),03/23/2021(Deferred: Patient Refused),03/23/2021(Deferred: Patient Refused),03/20/2021,02/18/2021(Deferre d: Patient Refused),04/15/2017 Yaneth (J&J) SARS-CoV-2 Vaccination 08/22/2020 Pneumococcal Conjugate PCV 13 07/13/2019 Pneumococcal Polysaccharide PPV23 03/23/2021 Tdap 03/29/2012 Surgical History Surgery Date Site/Laterality Comments SECTION 06/20/1979 - 06/19/1980 SECTION 06/20/1982 - 06/19/1983 OTHER SURGICAL HISTORY 06/20/1988 - 06/19/1989 Uterus and left ovary removed SECTION 1979 and 1982 KNEE SURGERY 07/13/2022 Left done at [facility] TOTAL KNEE ARTHROPLASTY 09/18/2024 Right HYSTERECTOMY Too many years ago t o remember sometime in the 1980s or early 90s still have one over left that s it Medical History Medical History Date Comments Heart disease Mitral valve prolaps e, and PVC mytrovalve prolapse Fibromyalgia 2000 Hypoglycemia Migraines Osteoarthritis of both knees Depression 2022 Bilateral primary osteoarthr itis of knee 09/23/2020 Tenosynovitis, de Quervain Family History Medical History Relation Name Comments Alzheimer's disease Father Paul Dementia Father Paul Diabetes Father Paul Heart disease Father Paul Dementia Maternal Grandmother Carolina Marquez Rashes / Skin problems Maternal Grandmother Carolina Scot t Alzheimer's disease Mother Negin Dementia Mother [...] often do you attend chur ch or buddhism services? More than 4 times per year 12/17/2022 Do you belong to any clubs o r organizations such as gnosticist groups, unions, fraternal or athletic groups, or [...] place to sleep or slept in a senior living (including now)? No 12/17/2022 PHQ-9 Answer Date [...] on file Legal Sex Female 2:03 PM DISTRICT ADMINISTRATIVE ASSISTANT Gender Identity Female 11/27/2022 8:14 AM CDT Sexual Orientation Straight 07/06/2022 12 :07 AM DISTRICT ADMINISTRATIVE ASSISTANT Obstetrics History Para Term AB IAB SAB Ectopic Multiple Livin g Live Births 2 2 Date Outcome GA Total Labor Labor/2nd/3rd Weight Sex Type Anes PTL Bailey A1 A5 Name Clin Para Para Last Filed Vital Signs Vital Sign Reading Time Taken Comments Blood Pressure 128/72 03/25/2025 7:39 AM CDT Pulse 92 03/25/2025 7:39 AM CDT Temperature 36.3 C (97.3 F) 03/25/2025 7:39 AM CDT Respiratory Rate 14 03/25/2025 7:39 AM CDT Oxygen Saturation 97% 03/25/2025 7:39 AM CDT Inhaled Oxygen Concentration - - Weight 72.5 kg (159 lb 12.8 oz) 03/25/2025 7:39 AM CDT Height 160 cm (5' 2.99) 03/25/2025 7:39 AM CDT Body Mass Index 28.31 03/25/2025 7:39 AM CDT Plan of Treatment Health Maintenance Due Date Last Done Comments Zoster Vaccine (1 of 2) 2004 DTaP/Tdap/Td Vaccine (2 - Td or Tdap) 03/29/2022 03/29/2012 Osteoporosis Screening-Bone Density Scan 07/06/2024 07/06/2022, 11/14/2013, 11/14/2013 Breast Cancer Screening-Mammogram 11/02/2024 11/03/2023, 11/03/2023, 04/21/2016, Additional history exists Covid-19 Vaccine (2024-07 6 season) 2025 08/22/2020 Colon Cancer Screening-DNA Stool 08/07/2025 08/07/19 23, 02/02/2019 Fall Risk Assessment 02/11/2026 02/11/2025, 12/22/2022, 11/10/2022, Additional history exists Well Visit 65+ 02/11/2026 02/11/2025, 0801/2022, 02/06/2020 Depression Screening 03/25/2026 03/25/2025, 02/11/2025, 02/04/2025, Additional history exists Pneumococcal vaccine 65+ Completed 03/23/2021, 06/21 Hepatitis B Screening Completed 02/25/2025 Hepatitis C Screening Completed 02/25/2025 Influenza Vaccine Completed 03/25/2025, , 03/20/2021, Additional history exists Procedures Procedure Name Priority Date/Time Associated Diagnosis Comments TRANSTHORACIC ECHO (TTE) COMPLETE W DOPPLER/CF WO CONTRAST Routine 04/12/2025 1:47 PM CDT Palpitations EGFR Routine 02/25/2025 10:37 AM CDT Prediabetes CKD (chronic kidney disease) stage 2, GFR 60-89 ml/min DIFFERENTIAL AUTO Routine 02/25/2025 10:37 AM CDT Screening, anemia, deficiency, iron CBC WITH AUTO DIFFERENTIAL Routine 02/25/2025 10:37 AM CDT Screening, anemia, deficiency, iron COMPREHENSIVE METABOLIC PANEL Routine 02/25/2025 10:37 AM CDT Prediabetes CKD (chronic kidney disease) stage 2, GFR 60-89 ml/min LIPID PANEL Routine 02/25/2025 10:37 AM CDT Mixed hyperlipidemia THYROID FUNCTION CASCADE Routine 02/25/2025 10:37 AM CDT Screening for thyroid disorder VITAMIN D 25 HYDROXY Routine 02/25/2025 10:37 AM CDT Low bone mass HEMOGLOBIN A1C Routine 02/25/2025 10:37 AM CDT Prediabetes HEPATITIS B SURFACE ANTIGEN Routine 02/25/2025 10:37 AM CDT Need for hepatitis B screening test HEPATITIS B CORE ANTIBODY, TOTAL Routine 02/25/2025 10:37 AM CDT Need for hepatitis B screening test HEPATITIS B SURFACE ANTIBODY (IMMUNE STATUS) Routine 02/25/2025 10:37 AM CDT Need for hepatitis B screening test HEPATITIS C ANTIBODY Routine 02/25/2025 10:37 AM CDT Need for hepatitis C screening test ECG 12-LEAD Routine 02/21/2025 1:12 PM CDT Hyperlipidemia, unspecified hyperlipidemia type Palpitations STOOL DNA COLOGUARD Routine 08/07/2022 9:10 PM DISTRICT ADMINISTRATIVE ASSISTANT Encounter for colorectal cancer screening DEXA AXIAL SKELETON BONE DENSITY 1 OR MORE SITES Schedule Routine, Read Routine (OP Routine) 07/06/2022 2:30 PM DISTRICT ADMINISTRATIVE ASSISTANT Encounter for osteoporosis screening in asymptomatic postmenopausal patient DIAGNOSTIC MAMMOGRAM BILATERAL W ALLEN Routine 11/13/2013 12:00 AM CDT from Last 3 Months or Most Recently Relevant to Health Maintenance Results * TRANSTHORACIC ECHO (TTE) COMPLETE W DOPPLER/CF WO CONTRAST (04/12/2025 1:47 PM CDT) EF Mod BP 63 % CONS SCIMAGE Anatomical Region Laterality Modality Ultrasound 04/12/2025 1:05 PM CDT Narrative 04/12/2025 4:12 PM CDT Transthoracic Echocardiographic Report ADDENDUM Patient Name: JACQUIE NESBITT J : 1955 (69y 11m) Sex: F Study Date: 04/12/2025 01:05:32 PM Ht(Inch): 62 Wt(Lb): 159 BSA: 1.73 Marketing Research Intern: Akosua Amezquita RDCS Order Provider: YOAN GUALLPA Heart Rate: 71 BMI: 29.08 BP: 128 / 72 Ref Provider: YOAN GUALLPA PROCEDURES: Echocardiographic Report: ([id number]) Transthoracic complete echo, 2D, spectral and tissue [...] 04/12/2025 Transthoracic Echocardiographic Report ADDENDUM Patient Name: JACQUIE NESBITT J : 1955 (69y 11m) Sex: F Study Date: 04/12/2025 01:05:32 PM Ht(Inch): 62 Wt(Lb): 159 BSA: 1.73 Marketing Research Intern: Akosua Amezquita RDCS Order Provider: SHARI,YOAN Heart Rate: 71 BMI: 29.08 BP: 128 / 72 Ref Provider: YOAN GUALLPA PROCEDURES: Echocardiographic Report: ([id number]) Transthoracic complete echo, 2D,spectral and tissue Doppler, [...] [ 16.00 - 34.00 ] MV Decel Occw492.00 msec RVDd 2D 2.70 cm [ 2.00 [...] ECHO PROCEDURES Edited Resu lt - Final * eGFR (02/25/2025 10:37 AM CDT) eGFR 86 >=60 mL/min/1. 73 m2 Comment: Interpretive Data Reference Interval Normal >/= 90 mL/min/1.73m2 Mildly decreased* 60 - 89 mL/min/1.73m2 Mildly to moderately decreased 45 - 59 mL/min/1.73m2 Moderately to severely decreased 30 - 44 mL/min/1.73m2 Severely decreased 15 - 29 mL/min/1.73m2 Kidney Failure < 15 mL/min/1.73m2 *Relative to young adult level Estimated glomerular filtration rate is determined by the 2020 CKD-EPI equation recommended by the National Kid[employer] (A Unifying Approach to GFR Estimation: Recommendations of the NKF-ASK Task Force on Reassessing the Inclusion of Race in Diagnosing Kidney Disease, JASN 2020). The CKD-EPI equation should not be used for patients with unstable renal function and has not been validated in children and those over 70. Current interpretive data was last reviewed 2021. Testing performed by: [address] [address] Blood 02/25/2025 10:3 7 AM CDT 02/25/2025 11:43 AM CDT us Tiffanie Agustin NP LAB BLOOD ORDERABLES Final Resul t [facility] [address] [facility] Department [place] [address] * Differential, auto (02/25/2025 10:37 AM CDT) Neutrophil abs 3.94 1.50 - 6.50 K/cumm Comment:Testing performed by : [address] [address] Imm gran abs 0.04 0.00 - 0.10 K/cumm ERICKSON Comment:Testing performed by : [address] [address] Lymphocyte abs 1.67 0.80 - 3.30 K/cumm ERICKSON Comment:Testing performed by : [address] [address] Monocyte abs 0.54 0.20 - 0.80 K/cumm ERICKSON Comment:Testing performed by : [address] [address] Eosinophil abs 0.19 0.00 - 0.50 K/cumm ERICKSON Comment:Testing performed by : [address] [address] Basophil abs 0.08 0.00 - 0.10 K/cumm ERICKSON Comment:Testing performed by : [address] [address] Neutrophil pct 61.0 % ERICKSON Comment: Interpretive Data Percent cell count reference ranges are not reported, since discordance with absolute values may lead to misinterpretation of CBC data. Current Interpretive Data was last revised on 2017. Testing performed by: [address] [address] Imm gran pct 0.6 % [facility] Comment: Interpretive Data Percent cell count reference ranges are not reported, since discordance with absolute values may lead to misinterpretation of CBC data. Current Interpretive Data was last revised on 2017. Testing performed by: [address] [address] Lymphocyte pct 25.9 % [facility] Comment: Interpretive Data Percent cell count reference ranges are not reported, since discordance with absolute values may lead to misinterpretation of CBC data. Current Interpretive Data was last revised on 2017. Testing performed by: [address] [address] Monocyte pct 8.4 % [facility] Comment: Interpretive Data Percent cell count reference ranges are not reported, since discordance with absolute values may lead to misinterpretation of CBC data. Current Interpretive Data was last revised on 2017. Testing performed by: [address] [address] Eosinophil pct 2.9 % [facility] Comment: Interpretive Data Percent cell count reference ranges are not reported, since discordance with absolute values may lead to misinterpretation of CBC data. Current Interpretive Data was last revised on 2017. Testing performed by: [address] [address] Basophil pct 1.2 % [facility] Comment: Interpretive Data Percent cell count reference ranges are not reported, since discordance with absolute values may lead to misinterpretation of CBC data. Current Interpretive Data was last revised on 2017. Testing performed by: [address] [address] Blood 02/25/2025 10:3 7 AM CDT 02/25/2025 11:44 AM CDT us Tiffanie Agustin NP LAB BLOOD ORDERABLES Final Resul t [facility] [address] [facility] Department [place] [address] * Thyroid Function [place] (02/25/2025 10:37 AM CDT) Pathologist [facility] TSH 1.53 0.30 - 4.20 mcIUnit/mL Comment:Testing performed by : [address] [address] Blood 02/25/2025 10:3 7 AM CDT 02/25/2025 11:43 AM CDT us Tiffanie Agustin NP LAB BLOOD ORDERABLES Final [facility]ul t [facility] [address] [facility] Department [place] [address] * CBC with auto differential (02/25/2025 10:37 AM CDT) Pathologist [facility] WBC 6.46 3.80 - 9.90 K/cumm Comment:Testing performed by : [address] [address] Hgb 14.3 11.9 - 15.5 g/dL [facility] Comment:Testing performed by : [address] [address] Hct 43.2 35.6 - 45.5 % [facility] Comment:Testing performed by : [address] [address] Plt 393 150 - 400 K/cumm [facility] Comment:Testing performed by : [address] [address] MPV 10.1 9.1 - 12.3 fL [facility] Comment:Testing performed by : [address] [address] RBC 4.92 3.90 - 5.20 M/cumm [facility] Comment:Testing performed by : [address] [address] MCV 87.8 81.3 - 96.4 fL [facility] Comment:Testing performed by : [address] [address] MCH 29.1 27.1 - 33.3 pg [facility] ROSE Comment:Testing performed by : [facility], [address] [place] [address]., [address] MCHC 33.1 32.3 - 35.7 g/dL [facility] ROSE Comment:Testing performed by : [facility], [address] [place] [address]., [address] RDW CV 13.2 11.1 - 14.9 % [facility] ROSE Comment:Testing performed by : [address] [address] RDW SD 42.7 35.7 - 48.1 fL [facility] Comment:Testing performed by : [facility], [address] [place] [address], [place]., [address] NRBC abs 0.00 0.00 - 0.01 K/cumm [facility] Comment:Testing performed by : [facility], [address] [place] [address]., [address] Blood 02/25/2025 10:3 7 AM CDT 02/25/2025 11:44 AM CDT us Tiffanie Agustin NP LAB BLOOD ORDERABLES Final Resul t [facility] [address] [facility] Department [place] [address] * Hepatitis C antibody Blood (02/25/2025 10:37 AM CDT) Hep C Ab Nonreactive Nonreactive Comment: Antibodies to HCV not detected. Does NOT exclude the possibility of recent exposure to HCV. Current interpretive data was last revised on 22 Interpretive Data Nonreactive: Antibodies to HCV not detected. Does NOT exclude the possibility of recent exposure to HCV. Equivocal: Equivocal for HCV antibodies. Supplemental molecular testing will be automatically performed to determine infection status in accordance with current CDC screening recommendations. Reactive: Positive for HCV antibodies. This may represent current or past HCV infection. Supplemental molecular testing will be automatically performed to determine current infection status in accordance with current CDC screening recommendations. Interpretive data was last revised on 2019. Blood 02/25/2025 10:3 7 AM CDT 02/25/2025 2:31 PM CDT Tiffanie Agustin NP LAB MICROBIOLOGY - GENERAL ORDER TOYIN Final Result Performing Organization Address City/[facility] Co de Phone Number [id number] [place] [address] * Hepatitis B core antibody, total Blood (02/25/2025 10:37 AM CDT) Pathologist [facility] Hep B core IgG/IgM Nonreactive Nonreactive Comment:Testing performed by : [facility], [address] [facility], [place]., [address] Blood 02/25/2025 10:3 7 AM CDT 02/25/2025 3:27 PM CDT Tiffanie Agustin NP LAB MICROBIOLOGY - GENERAL ORDER TOYIN Final Result Performing Organization Address [facility] Co de Phone Number MEETA[address] [place] [address] * Vitamin D 25 hydroxy (02/25/2025 10:37 AM CDT) Pathologist [facility] Vitamin D 25-OH 39.0 30.0 - 80.0 ng/mL Blood 02/25/2025 10:3 7 AM CDT 02/25/2025 2:31 PM CDT Tiffanie Agustin NP LAB BLOOD ORDERABLES Final Resul t Performing Organization Address City/[facility] Co de Phone Number MEETA[address] [place] [address] * Hepatitis B surface antibody (immune status) Blood (02/25/2025 10:37 AM CDT) Pathologist [facility] HBsAb (immune status) Nonreactive Comment: Interpretive Data Nonreactive: This result is consistent with a lack of immunity to Hepatitis B Virus when used in the setting of routine screening. Equivocal: The immune status of the individual should be further assessed, if appropriate, after consideration of clinical status, risk factors, and additional diagnostic information. Reactive: This result is consistent with immunity to Hepatitis B Virus when used in the setting of routine screening. Current interpretive data was last revised on 19. Blood 02/25/2025 10:3 7 AM CDT 02/25/2025 2:31 PM CDT Tiffanie Agustin NP LAB MICROBIOLOGY - GENERAL ORDER TOYIN Final Result Performing Organization Address City/[facility] Co de Phone Number MEETA[address] [place] [address] * Hepatitis B Surface Antigen Blood (02/25/2025 10:37 AM CDT) Pathologist [facility] HepBsAg Nonreactive Nonreactive Blood 02/25/2025 10:3 7 AM CDT 02/25/2025 2:31 PM CDT Tiffanie Agustin NP LAB MICROBIOLOGY - GENERAL ORDER TOYIN Final Result Performing Organization Address [facility] de Phone Number [address] [place] [address] * (ABNORMAL) Hemoglobin A1c (02/25/2025 10:37 AM CDT) Pathologist [facility] Hgb A1C 5.9(H) 4.0 - 5.6 % Comment:Testing performed by : [address] [address] Estimated Average Glucose 123 mg/dL [facility] Comment: The ADA recommends reporting an estimated Average Glucose (eAG) with all Hemoglobin A1c results using the equation derived from a study of 507 normal and diabetic adults. Minority populations were underrepresented and children were not included. (Diabetes Care 31:8392-2954, 2008). The eAG is not equivalent to a fasting glucose. Testing performed by: [address] [address] Blood 02/25/2025 10:3 7 AM CDT 02/25/2025 11:44 AM CDT us Tiffanie Agustin NP LAB BLOOD ORDERABLES Final Resul t [facility] [address] [facility] Department [place] [address] * (ABNORMAL) Lipid panel (02/25/2025 10:37 AM CDT) Cholesterol 206(H) 30 - 199 mg/dL Comment: Interpretive Data Ages < or = 19 years Acceptable: <170 mg/dL Borderline high: 170-199 mg/dL High: >or= 200 mg/dL Ages > or = 20 years Desirable: <200 mg/dL Borderline high: 200-239 mg/dL High: >or= 240 mg/dL Literature References: 1. Expert Panel on Integrated Guidelines for Cardiovascular Health and Risk Reduction in Children and Adolescents. Pediatrics 2011;128:S213 2. NCEP Expert Panel. Circulation 2004;110:227 Current Interpretive Data was last revised on 2018. Testing performed by: [address] [address] Triglycerides 162(H) <=149 mg/dL [facility] Comment: Interpretive Data Ages < or = 9 years Acceptable: <75 mg/dL Borderline high: 75-99 mg/dL High: >or= 100 mg/dL Ages 10 to 20 years Acceptable: <90 mg/dL Borderline high: 90-129 mg/dL High: >or= 130 mg/dL Ages > or = 20 years Desirable: <150 mg/dL Borderline high: 150-199 mg/dL High: 200-499 mg/dL Very high: >or= 499 mg/dL Literature References: 1. Expert Panel on Integrated Guidelines for Cardiovascular Health and Risk Reduction in Children and Adolescents. Pediatrics 2011;128:S213 2. NCEP Expert Panel. Circulation 2004;110:227 Current Interpretive Data was last revised on 2018. Testing performed by: [address] [address] HDL 74 >=40 mg/dL [facility] Comment: Interpretive Data Ages < or = 19 years Acceptable: >45 mg/dL Borderline low: 40-45 mg/dL Low: <40 mg/dL Ages > or = 20 years Desirable: >or= 60 mg/dL Low: <40 mg/dL Literature References: 1. Expert Panel on Integrated Guidelines for Cardiovascular Health and Risk Reduction in Children and Adolescents. Pediatrics 2011;128:S213 2. NCEP Expert Panel. Circulation 2004;110:227 Current Interpretive Data was last revised on 2018. Testing performed by: [address] [address] LDL, calculated 104 <=129 mg/dL [facility] ROSE Comment: Interpretive Data Ages < or = 19 years Acceptable: <110 mg/dL Borderline high: 110-129 mg/dL High: >or= 130 mg/dL Ages > or = 20 years Optimal: <100 mg/dL Near optimal: 100-129 mg/dL Borderline high: 130-159 mg/dL High: >160 mg/dL Calculated using the Florin LDL-C estimating equation. This equation was implemented on 2024. Prior to this date LDL-C was estimated using the Friedewald equation. Literature References: 1. Expert Panel on Integrated Guidelines for Cardiovascular Health and Risk Reduction in Children and Adolescents. Pediatrics 2011;128:S213 2. NCEP Expert Panel. Circulation 2004;110:227 3. Florin Gamez et al. PRADIP Cardiol. 2019October 18;5(5):540-548. doi: 10.1001/jamacardio.2020.0013 Current Interpretive Data was last revised on 2024. Testing performed by: [address] [address] Non-HDL Cholesterol 132 mg/dL [facility] ROSE Comment: Interpretive Data Ages < or = 19 years Acceptable: <120 mg/dL Borderline high: 120-144 mg/dL High: >145 mg/dL Ages > or = 20 years When triglycerides are >200 mg/dL, Non-HDL cholesterol is a secondary target of therapy with treatment goals that are 30 mg/dL greater than the LDL cholesterol target. Literature References: 1. Expert Panel on Integrated Guidelines for Cardiovascular Health and Risk Reduction in Children and Adolescents. Pediatrics 2011;128:S213 2. NCEP Expert Panel. Circulation 2004;110:227 Current Interpretive Data was last revised on 2018. Testing performed by: [address] [address] Chol/HDL ratio 3 [facility] Comment:Testing performed by : [address] [address] Blood 02/25/2025 10:3 7 AM CDT 02/25/2025 11:43 AM CDT Narrative [facility] - 02/25/2025 12:35 PM CDT Has the patient been fasting for 8 hours or more?->Yes us Tiffanie Agustin CUFF SETTER OVERLOCK LAB BLOOD ORDERABLES Final Resul t [facility] [address] [facility] Department [place] [address] * (ABNORMAL) Comprehensive metabolic panel (02/25/2025 10:37 AM CDT) Sodium 143 135 - 145 mmol/L Comment:Testing performed by : [address] [address] Potassium, pl 4.5 3.3 - 4.9 mmol/L [facility] Comment:Testing performed by : [address] [address] Chloride 107 97 - 110 mmol/L [facility] Comment:Testing performed by : [address] [address] CO2 27 22 - 32 mmol/L [facility] Comment:Testing performed by : [address] [address] Anion gap 9 2 - 15 mmol/L [facility] Comment:Testing performed by : [address] [address] BUN 14 6 - 25 mg/dL [facility] Comment:Testing performed by : [address] [address] Creatinine 0.75 0.60 - 1.10 mg/dL [facility] Comment:Testing performed by : [address] [address] Glucose 102 70 - 199 mg/dL [facility] Comment: Interpretive Data Fasting glucose >/= 126 mg/dl is diagnostic for diabetes. Fasting is defined as no caloric intake for at least 8 hours. Fasting glucose between 100 mg/dl to 125 mg/dl is diagnostic of prediabetes. In a patient with classic symptoms of hyperglycemia or hyperglycemic crisis, a random glucose >/= 200 mg/dl is diagnostic for diabetes. In the absence of unequivocal hyperglycemia, results should be confirmed by repeat testing. The classification and Diagnosis of Diabetes Diabetes Care 2021; 46: S19-S40. Current interpretive data was last revised 2022. Testing performed by: [address] [address] Calcium 10.4(H) 8.5 - 10.3 mg/dL [facility] Comment:Testing performed by : [address] [address] Bilirubin, total 0.3 0.1 - 1.2 mg/dL [facility] Comment:Testing performed by : [address] [address] Protein, pl 7.2 6.5 - 8.5 g/dL [facility] Comment:Testing performed by : [address] [address] Albumin 4.3 3.5 - 5.0 g/dL [facility] Comment:Testing performed by : [address] [address] Alk phos 102 40 - 130 Units/L [facility] Comment:Testing performed by : [address] [address] ALT 17 7 - 45 Units/L [facility] Comment:Testing performed by : [address] [address] AST 22 10 - 45 Units/L [facility] Comment:Testing performed by : [address] [address] Blood 02/25/2025 10:3 7 AM CDT 02/25/2025 11:43 AM CDT Narrative [facility] - 02/25/2025 12:35 PM CDT Has the patient fasted?->Yes us Tiffanie Agustin NP LAB BLOOD ORDERABLES Final Resul t [facility] [address] [facility] Department [place] [address] * ECG 12 lead (02/21/2025 1:12 PM CDT) us Yoan Guallpa MD ECG ORDERABLES Final Result * Stool DNA - Cologuard (08/07/2022 9:10 PM DISTRICT ADMINISTRATIVE ASSISTANT) Stool DNA - Cologuard Negative Negative [facility] (CLIA #:[id number]) Comment: NEGATIVE TEST RESULT. A negative Cologuard [...] screened with both Cologuard and colonoscopy. (Heather T. et al, N Engl J Med 2014;370(14):4827-6133) The normal value (reference range) for this assay is negative. COLOGUARD RE-SCREENING RECOMMENDATION: Periodic colorectal cancer screening is an important part of preventive healthcare for asymptomatic individuals at average risk for colorectal cancer. Following a negative Cologuard result, the [place] Cancer Society and U.S. Multi-Society Task Force screening guidelines recommend a Cologuard re-screening interval of 3 years. References: [place] [employer] Guideline for Colorectal Cancer Screening: https://www.cancer.org/cancer/udhpi-recsyt-azhwqw/ymwrvtjld-etjgfiupl-svcjanx/ac s-rec ommendations.html.; Joshua DELGADO, Asim ANGELO, Chin DIETRICH, Colorectal Cancer Screening: Recommendations for Physicians and Patients from the U.S. Multi-Society Task Force on Colorectal Cancer Screening , Am J Gastroenterology 2017; 112:9847-4565. TEST DESCRIPTION: Composite algorithmic analysis of stool [...] screened with both Cologuard and colonoscopy. (Heather Burgess. et al, N Engl J Med 2014;370(14):3959-8617.) Cologuard may produce a false negative or false positive result (no colorectal cancer or precancerous polyp present at colonoscopy follow up). A negative Cologuard test result does not guarantee the absence of CRC or advanced adenoma (pre-cancer). The current Cologuard screening interval is every 3 years. ([place] [employer] Society and U.S. Multi-Society Task Force). Cologuard performance data in a 10,000 patient pivotal study using colonoscopy as the reference method can be accessed at the following location: www.Learnmetrics.[employer]/results. Additional description of the Cologuard test process, warnings and precautions can be found at www.Bapulrd.com. Stool 08/07/2022 9:10 PM DISTRICT ADMINISTRATIVE ASSISTANT 08/10/2022 12:04 PM DISTRICT ADMINISTRATIVE ASSISTANT Priscilla Marie NP LAB BODY FLUIDS AND STOOLS ORDERABLES Final Result [email or web address] (CLIA #:[id number]) [place] [address] * Dexa Axial Skeleton Bone Density 1 Or 2 Site (07/06/2022 2:30 PM DISTRICT ADMINISTRATIVE ASSISTANT) Anatomical Region Laterality Modality Body N/A Other 07/06/2022 9:02 PM DISTRICT ADMINISTRATIVE ASSISTANT Narrative 07/07/2022 8:13 AM DISTRICT ADMINISTRATIVE ASSISTANT EXAM DESCRIPTION: DEXA AXIAL SKELETON BONE DENSITY 1 OR MORE SITES REASON FOR STUDY: 67 y/o year old F with given history of screening. Postmenopausal Blacktop Spreader/Model: [employer] SL (S/N [id number]) CLINICAL INFORMATION: Current height: 63 inches Maximum [...] Kenan Doran M.D. MF: DANIELLE Report ID: [id number] Reading Location: [id number] Procedure Note Kenan Doran MD - 07/07/2022 EXAM DESCRIPTION: DEXA AXIAL SKELETON BONE DENSITY 1 OR MORE SITES REASON FOR STUDY: 67 y/o year old F with given history ofscreening. Postmenopausal Blacktop Spreader/Model: [employer] SL (S/N [id number]) CLINICAL INFORMATION: Current height: 63 inches Maximum [...] Kenan Doran M.D. MF: DANIELLE Report ID: [id number] Reading Location: [place] [address] Priscilla Marie CUFF SETTER OVERLOCK IMG DXA PROCEDURES Final Re sult * [...] Requesting: ERIC SIEGEL M.D. Requesting Requesting ID: [id number] Attending Attending ID: [id number] Completed Time: 11/13/2013 2:16 PM Dictated Time: [...] Requesting: ERIC SIEGEL M.D. Requesting Requesting ID: [id number] Attending Attending ID: [id number] Completed Time: 11/13/2013 2:16 PM Dictated Time: [...] Health Maintenance [place] [id number] [place] [phone] MEDICARE [facility] MEDICARE SUPPLEMENT Care Teams Scorer Helper Relationship Specialty Start Date End Date Tiffanie Agustin NP [address] [place] [address] PCP - General Family Medicine 02/04/25
--- OUTSIDE RECORDS SUMMARY | 2025-04-14 14:19 | XMS_ITS | Encounter Summary ---
Author Organization [facility] Address [address] [place] [address] Care Team Providers Care Gluer Machine Operator Name Role Phone Cristiane Parmar DO Primary Care Provider Giuliana vailable Encounter Details Date Type Department Care Team (Late st Contact Info) Description 05/18/2006 Outpatient Historical [facility] Family Medicine [address] [id number] Kip Kraus DO [address] [place] [id number] Social History Tobacco Use Types Packs/Day Years Used Date Smoking Tobacco: Never Assessed Comments Unknown Sex and Gender Information Value Date Recorded Sex Assigned at Not on file Legal Sex Female 3:19 AM ADVERTISING STATISTICAL CLERK Gender Identity Not on file Sexual Orientation Not on file documented as of this encounter Plan of Treatment Not on file documented as of this encounter Visit Diagnoses Not on filedocumented in this encounter Care Teams Gluer Machine Operator Relationship Specialty Start Date End Date Cristiane Parmar DO PCP - General Family Practice 05/07/24 03/07/25 documented as of this encounter
--- OUTSIDE RECORDS SUMMARY | 2025-04-14 14:19 | XMS_ITS | Encounter Summary ---
Author Organization [facility] Address [address] [place] [address] Care Team Providers Care Dehydrating Press Operator Name Role Phone Radha Vanegas MD Primary Care Provider [phone] Encounter Details Date Type Department Care Team (Late st Contact Info) Description 09/03/2024 [employer] Message [facility] Patient Accounts [address] [place] [address] [facility] Social History Tobacco [...] Sex Assigned at Female 07/03/2024 1:23 PM SEARCH ADVERTISING STRATEGIST Legal Sex Female 5:45 PM CDT Gender Identity Female 10/03/2024 9:02 AM CDT Sexual Orientation Straight 10/03/2024 9: 02 AM CDT documented as of this encounter Functional Status * RETIRED Are you deaf or do you have serious difficulty hearing Answer Date of Assessment Author Status No 07/13/2022 2:00 PM SEARCH ADVERTISING STRATEGIST Activ e * RETIRED Are you blind or do you have serious difficulty seeing, even when wearing glasses? Answer Date of Assessment Author Status No 07/13/2022 2:00 PM SEARCH ADVERTISING STRATEGIST Activ e * Do you have serious [...] Total Score: 1 05/25/20 24 2:28 PM SEARCH ADVERTISING STRATEGIST documented as of this encounter Care Teams Dehydrating Press Operator Relationship Specialty Start Date End Date Radha Vanegas MD [address] [place] [address] PCP - General FAMILY PRACTICE 11/01/23 documented as of this encounter
--- OUTSIDE RECORDS SUMMARY | 2025-04-14 14:19 | XMS_ITS | Encounter Summary ---
Author Organization [facility] Address Counts include 234 beds at the [facility] [place] [address] Care Team Providers Care Automobile Engine Assembler Name Role Phone Radha Vanegas MD Primary Care Provider [phone] Encounter Details Date Type Department Care Team (Late st Contact Info) Description 04/30/2024 [employer] Message Enc [facility] Orthopedic Surgery-[facility] [address] [place], [place] [id number] [place] [address] [place], [place] [id number] Help with Knee pain while waiting for [...] Sex Assigned at Female 07/03/2024 1:23 PM COMPLIANCE INVESTIGATOR Legal Sex Female 5:45 PM CDT Gender Identity Female 10/03/2024 9:02 AM CDT Sexual Orientation Straight 10/03/2024 9: 02 AM CDT documented as of this encounter Functional Status * RETIRED Are you deaf or do you have serious difficulty hearing Answer Date of Assessment Author Status No 07/13/2022 2:00 PM COMPLIANCE INVESTIGATOR Activ e * RETIRED Are you blind or do you have serious difficulty seeing, even when wearing glasses? Answer Date of Assessment Author Status No 07/13/2022 2:00 PM COMPLIANCE INVESTIGATOR Activ e * Do you have serious [...] 2:31 PM Shukri Estes RN Active * Weber Suicide Severity Rating Scale (Screener/Recent Self-Report) Question [...] documented as of this encounter Care Teams Automobile Engine Assembler Relationship Specialty Start Date End Date Radha Vanegas MD [address] [place] [address] PCP - General FAMILY PRACTICE 11/01/23 documented as of this encounter
--- OUTSIDE RECORDS SUMMARY | 2025-04-14 14:19 | XMS_ITS | Patient Health Record ---
Author Organization [facility] Address [address] [place] [address] Care Team Providers Care Obstetrics Gyn Name Role Phone iLta Carrasquillo Unavailable [phone] Allergies Allergen (clinical drug ingredient) Drug/Non Drug Allergy documented on EMR Reaction Allergy Type Onset Date Status erythromycin Erythromycin Base Unknown Drug Allergy 2022 Active Reason For Referral No Information Medications Medication SIG (Take, Route, Frequency, Duration) Notes Start Date End Date Status Ezetimibe 10 MG Tablet Oral 02/11/2023 Unknown Venlafaxine HCl ER 37.5 MG Capsule Extended Release 24 Hour 1 capsule with food Orally Once a day; Duration: 30 days 12/28/2023 Active Meloxicam 15 MG Tablet Oral 02/11/2023 Unknown QUEtiapine Fumarate 50 MG Tablet Oral 02/11/2023 Unknown HYDROcodone-Acetaminophen 5-325 MG Tablet Oral 02/11/2023 Unknown Montelukast Sodium 10 MG Tablet Oral 02/11/2023 Unknown Metaxalone 800 MG Tablet Oral 02/11/2023 Unknown Pantoprazole Sodium 40 MG Tablet Delayed Release Oral 02/11/2023 Unkno wn Social History Tobacco Use: Social History Observation Description Date Details (start date - stop date) Never Smoker NA - NA Sex Assigned At : Social History Observation Description Sex Assigned At Female Social History Miscellaneous: Social Info Question Answer Notes Safety issues: Are there any firearms in the house? No Social History Social Info Question Answer Notes Household: Marital Status: Number of Adults in household: 1 Level of Education: Not Finished College Drug/Alcohol: Social Info Question Answer Notes Drugs Have you used drugs other than those for medical reasons in the past 12 months? No AUDIT-C (Standard) Did you have a drink containing alcohol in the past year? 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
--- OUTSIDE RECORDS SUMMARY | 2025-04-14 14:19 | XMS_ITS | Clinical Summary ---
Author Organization [facility] Address [address] [place] [address] Care Team Providers Care Cryptographic Vulnerability Analyst Name Role Phone Radha Vanegas MD Primary Care Provider [phone] Allergies Active Allergy Reactions Criticality Noted Date [...] Loss of Function Active venlafaxine XR (EFFEXOR-XR) 75 MG 24 hr capsule take 3 capsules by mouth in the morning 5 Active Active Problems Problem Noted Date Diagnosed [...] recurrent major depressive disorder, without psychotic features 12/12/2022 Major depressive disorder wi th current active episode, unspecified depression episode severity, unspecified whether recurrent 12/10/2022 Labial lesion 10/15/2022 Overview (09/18/2024): Last Assessment & Plan: Benign appearing papules present on bilateral labia, recommended further evaluation with gynecology. Patient will call to schedule follow up with [facility], referral placed. Status post total knee replacement, [...] needed. Assessment & Plan (08/23/2022 12:33 PM SUPERVISOR CABINETMAKER): The patient will follow up in 3 months. She will finish up physical therapy 08/24/2022. Assessment & Plan (07/26/2022 12:35 PM SUPERVISOR CABINETMAKER): The patient is encouraged to use Vit E oil, cocoa butter, and/or scar cream to assist in healing and mobility. Patient will continue pain medication as needed. She will start going to outpatient physical therapy next week. The patient will follow-up in 4 weeks with an XR. BMI 26.0-26.9,adult 06/11/2022 Assessment & Plan (06/11/2022 8:38 PM SUPERVISOR CABINETMAKER): We discussed the adverse effects of weight on osteoarthritis. For every 1 pound loss, 4 to 6 pounds of stress is relieved from the knee, slightly more at the ankle and slightly less at the hip. Primary osteoarthritis of right knee 06/08/2022 Overview (09/18/2024): Added automatically from request for surgery [id number] Last Assessment & Plan: Scheduled for surgery with Dr. Magaña 07/13/22. Added automatically from request for surgery [id number] Last Assessment & Plan: We discussed the [...] 07/13/2021 Added automatically from request for surgery [id number] Assessment & Plan (05/27/2024 10:29 AM SUPERVISOR CABINETMAKER): We discussed the risks, benefits, and alternatives. [...] (06/08/2022): Added automatically from request for surgery [id number] Assessment & Plan (06/11/2022 8:37 PM SUPERVISOR CABINETMAKER): We discussed the risks, benefits and alternatives. [...] (06/08/2022): Added automatically from request for surgery [id number] Allergies 06/08/2022 Overview (09/18/2024): Added automatically from request for surgery [id number] Added automatically from request for surgery [id number] Bilateral primary osteoarthritis of knee 021 Overview [...] (06/08/2022): Added automatically from request for surgery [id number] Temporomandibular joint disorder 01/21/2012 Mixed hyperlipidemia 09/21/2011 Primary localized osteoarthrosis, lower leg 07/22 Moderate episode of recurrent major depressive d isorder 03/26/2011 Disorder of bone and cartilage 11/29/2008 Sicca syndrome 05/30/2008 Actinic keratosis 07/13/2007 Gastroesophageal reflux disease without esophagi tis 07/13/2007 Bunion 03/06/2007 Migraine with aura and witho ut status migrainosus, not intractable 09/06/2006 Resolved Problems Problem Noted Date Diagnosed Date Resolved Date Encounter for preoperative e xamination for general surgical procedure 07/01/2022 09/24/2024 Screening for hyperlipidemia 04/15/2017 09/24/2024 Encounters Date Type Department Care Team Description 01/17/2025 4:00 PM CDT Office Visit [facility] [address] [place] [address] Jase Arroyo NP Postop Followup (Right TKR 09/18/2024/Per Pt. Fell down the stairs 2 weeks ago) 01/17/2025 Travel from Last 3 Months Family History [...] materials from doctor or pharmacy Never 05/23/2024 [facility] Utilities Answer Date Recorded In the past 12 months has th e electric, gas, oil, or water company threatened to shut off services in your [...] any time in the past 12 [facility], were you homeless or living in a correction (including now)? No 09/20/2024 Comments No Sex and Gender Information Value Date Recorded Sex Assigned at Female 07/03/2024 1:23 PM SUPERVISOR CABINETMAKER Legal Sex Female 5:45 PM CDT Gender Identity Female 10/03/2024 9:02 AM CDT Sexual Orientation Straight 10/03/2024 9: 02 AM CDT Last Filed Vital Signs Vital Sign Reading Time Taken Comments Blood Pressure 134/85 01/17/2025 4:11 PM CDT Pulse 84 01/17/2025 4:11 PM CDT Temperature 36.7 C (98 F) 01/17/2025 4:11 PM CDT Respiratory Rate 18 09/20/2024 4:25 PM CDT Oxygen Saturation 96% 01/17/2025 4:11 PM CDT Inhaled Oxygen Concentration - - Weight 69.2 kg (152 lb 9.6 oz) 01/17/2025 4:11 P M CDT Height 160 cm (5' 3) 01/17/2025 4:11 PM CDT Body Mass Index 27.03 01/17/2025 4:11 PM CDT Plan of Treatment Health Maintenance Due Date Last Done Comments ASCVD LDL 1954 ASCVD Statin 1954 Colorectal Cancer Screening Colonoscopy (10 Years) 1954 Hepatitis C 1972 Zoster Vaccines (1 of 2) 2004 Annual Medicare Wellness Visit 2019 DTaP, Tdap and Td Vaccines (2 - Td or Tdap) 03/29/2022 03/29/2012 COVID-19 Vaccine (2 - season) 2025 08/22/2020 Influenza Adult (#1) 2025 03/20/2021, 03/31/2020, 02/22/2019, Additional history exists Mammogram Screening 11/02/2025 11/03/2023, 04/21/2016, 11/13/2013 RSV Immunization or 60+ Years (1 - 1-dose 75+ series) 2029 Pneumococcal Vaccine: 50+ Years Completed 03/23/2021, 07/13/2019 Dexa Scan (General) Completed 07/06/2022, 07/06/2022, 11/14/2013, Additional history exists PHQ-2 (Physician Butler) Completed 10/03/2024 Hepatitis A Vaccines Aged Out No long er eligible based on patient's age to complete this topic Meningococcal B Vaccine Aged Out No l [...] Recommended Domains Addressed Status Status Reason/Outcome Date/Time [facility] Financial Assistance Financial Resource Strain Recommended 01/06/2025 8:25 PM CDT [facility] Financial Assistance Financial Resource Strain Recommended 01/06/2025 8:25 PM CDT [facility] Financial Assistance Financial Resource Strain Recommended 01/06/2025 8:25 PM CDT Social [facility] Office Financial Assistance Financial Resource Strain Recommended 01/06/2025 8:25 PM CDT Social Security Office Financial Assistance Financial Resource Strain Recommended 01/06/2025 8:25 PM CDT from Last 12 Months Medical Devices Implanted Type Area Lease Examiner Device Identifier Shelf Expiration Date Model / Serial / Lot Cement Full Dose - [id number] Implanted:Qty : 1 on 07/13/2022 by Esteban Magaña DO at [facility] Cement Implant [employer] [id number] 11/17/2024 6191-1-0 / [id number] Component Femoral 3 Knee Left Cruciate Retain Cement Triathlon Sterile Latex Free - [id number] Implanted:Qty : 1 on 07/13/2022 by Esteban Magaña DO at [facility] Knee Components [employer] [id number] 04/26/2026 5510-F-3 / / [id number] Plate Dexter Tibal Base Size 3 - [id number] Implanted:Qty : 1 on 07/13/2022 by Esteban Magaña DO at [facility] Knee Components [employer] [id number] 03/07/2027 5520-B-3 00 / / [id number] Baseplate Tibial Triathlon 3 Knee Tritanium - [id number] Implanted:Qty : 1 on 09/18/2024 by Esteban Magaña DO at [facility] Knee Components Right: Knee [employer] [id number] 07/01/2029 5536-B-3 00 / / [id number] Component Femoral 4 Knee Right Cruciate Retain Bead Triathlon Pa Sterile Latex Free - [id number] Implanted:Qty : 1 on 09/18/2024 by Esteban Magaña DO at [facility] Knee Components Right: Knee [employer] [id number] 07/20/2029 5517-F-4 02 / / [id number] Triathlon Tritanium Asymmetric Patella Implanted:Qty : 1 on 09/18/2024 by Esteban Magaña DO at [facility] Knee Components Right: Knee [employer] [id number] 05/01/2029 5552-L-3 20 / / [id number] Triathlon X3 Tibial Bearing Insert -[id number] Implanted:Qty : 1 on 09/18/2024 by Esteban Magaña DO at [facility] Knee Components Right: Knee [employer] [id number] 04/23/2029 5531-G-3 09-E / / [id number] Pump Pain On-Q 400ml - [id number] Implanted:Qty : 1 on 07/13/2022 by Esteban Magaña DO at [facility] Pump [employer] 10/18/2024 CB004 / / [id number] Triathlon Asymmetric X3 Patella Implanted:Qty : 1 on 07/13/2022 by Esteban Magaña DO at [facility] [id number] 03/13/2027 551-G-29 9-E / / [id number] [place] Tibial Bearing Insert Implanted:Qty : 1 on 07/13/2022 by Esteban Magaña DO at [facility] [employer] [id number] 02/02/2027 5531-G-3 09-E / / [id number] Explanted Type Area Lease Examiner Device Identifier Shelf Expiration Date Model / Serial / Lot Pin [place] Bone Gato 140 X 4 - [id number] Explanted:Qty: 1 on 07/13/2022 by Esteban Magaña DO at [facility] Pin [employer] [id number] / / Pin [place] Bone Gato 110 X 4 - [id number] Explanted:Qty: 1 on 07/13/2022 by Esteban Magaña DO at [facility] Pin [employer] [id number] / / Pin [place] [employer] Gato 140 X 4 - [id number] Explanted:Qty: 1 on 09/18/2024 by Esteban Magaña DO at [facility] Pin Right: Knee [employer] [id number] 06/29/2029 508585- / / [id number] Pin [place] Bone Gato 110 X 4 - [id number] Explanted:Qty: 1 on 09/18/2024 by Esteban Magaña DO at [facility] Pin Right: Knee [employer] [id number] 02/02/2029 038997 / / [id number] Pump Pain On-Q 400ml - [id number] Explanted:Qty: 1 on 09/18/2024 by Esteban Magaña DO at [facility] Pump [employer] CB004 / / Description:Not an implant Additional Health Concerns Infection Onset Date Last Indicated 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 09/17/2024 09/17/2024 Insurance MEDICARE [facility] Advance Directives Documents on File Type Date Recorded Patient Mental Health Unit Lead Psychologist Expl anation Power of Security Rover * Full Code (Latest Code Status on File) Date Activated Date Inactivated Comments 09/18/2024 12:28 PM 09/20/2024 10:13 PM * DNR Date Activated Date Inactivated Comments 05/08/2024 12:10 PM 07/03/2024 1:28 PM * Full Code Date Activated Date Inactivated Comments 07/18/2022 5:16 PM 12/08/2022 11:09 AM * Full Code Date Activated Date Inactivated Comments 07/13/2022 1:01 PM 07/16/2022 5:12 PM Care Teams Cryptographic Vulnerability Analyst Relationship Specialty Start Date End Date Radha Vanegas MD [address] [place] [address] PCP - General FAMILY PRACTICE 11/01/23
--- OUTSIDE RECORDS SUMMARY | 2025-04-14 14:19 | XMS_ITS | Data Portability ---
Author Organization [employer], [facility] Address [address] [address] Assessment No assessment recorded. Plan of Treatment [...] Surgeries None recorded. Imaging XR, knee 2020 [email or web address] Not available 15:19:00 Medication Orders cephalexin 500 mg capsule 2020 [email or web address] Not available 16:33:47 Patient TargetsNo targets recorded. Patient InstructionsNo instructions recorded. Reason for Referral None Reported. Results Created Date Observation Date Name Description Value Unit Range Abnormal Flag Note LastModifiedBy Organization Detail LastModifiedTime 04/22/20 21 04/25/2021 CBC (INCL UDES DIFF/ PLT) white blood cell count 7.1 thous and/u L 3.8-10 .8 normal Not Available [address], [address], 04/25/2021 12:35:37 04/22/20 21 04/25/2021 CBC (INCL UDES DIFF/ PLT) red blood cell count 4.76 gio on/uL 3.80-5 .10 normal Not Available [address], [address], 04/25/2021 12:35:37 04/22/20 21 04/25/2021 CBC (INCL UDES DIFF/ PLT) hemoglobin 13.5 g/dL 11.7-1 5.5 normal Not Available [address], [address], 04/25/2021 12:35:37 04/22/20 21 04/25/2021 CBC (INCL UDES DIFF/ PLT) hematocrit 40.6 % 35.0-4 5.0 normal Not Available [address], [address], 04/25/2021 12:35:37 04/22/20 21 04/25/2021 CBC (INCL UDES DIFF/ PLT) MCV 85.3 fL 80.0-1 00.0 normal Not Available [address], [address], 04/25/2021 12:35:37 04/22/20 21 04/25/2021 CBC (INCL UDES DIFF/ PLT) MCH 28.4 pg 27.0-3 3.0 normal Not Available [address], [address], 04/25/2021 12:35:37 04/22/20 21 04/25/2021 CBC (INCL UDES DIFF/ PLT) MCHC 33.3 g/dL 32.0-3 6.0 normal Not Available [address], [address], 04/25/2021 12:35:37 04/22/20 21 04/25/2021 CBC (INCL UDES DIFF/ PLT) RDW 12.7 % 11.0-1 5.0 normal Not Available [address], [address], 04/25/2021 12:35:37 04/22/2004/25/2021 CBC (INCL UDES DIFF/ PLT) platelet count 373 thous and/u L 140-40 0 normal Not Available [address], [address], 04/25/2021 12:35:37 04/22/20 21 04/25/2021 CBC (INCL UDES DIFF/ PLT) MPV 10.5 fL 7.5-12 .5 normal Not Available [address], [address], 04/25/2021 12:35:37 04/22/20 21 04/25/2021 CBC (INCL UDES DIFF/ PLT) absolute neutrophils 4033 cells /uL 1500-7 800 normal Not Available [address], [address], 04/25/2021 12:35:37 04/22/20 21 04/25/2021 CBC (INCL UDES DIFF/ PLT) absolute lymphocytes 2201 cells /uL 850-39 00 normal Not Available [address], [address], 04/25/2021 12:35:37 04/22/20 21 04/25/2021 CBC (INCL UDES DIFF/ PLT) absolute monocytes 561 cells /uL 200-95 0 normal Not Available [address], [address], 04/25/2021 12:35:37 04/22/20 21 04/25/2021 CBC (INCL UDES DIFF/ PLT) absolute eosinophils 234 cells /uL 15-500 normal Not Available [address], [address], 04/25/2021 12:35:37 04/22/20 21 04/25/2021 CBC (INCL UDES DIFF/ PLT) absolute basophils 71 cells /uL 0-200 normal Not Available [address], [address], 04/25/2021 12:35:37 04/22/20 21 04/25/2021 CBC (INCL UDES DIFF/ PLT) neutrophils 56.8 % normal Not Available [address], [address], 04/25/2021 12:35:37 04/22/20 21 04/25/2021 CBC (INCL UDES DIFF/ PLT) lymphocytes 31.0 % normal Not Available [address], [address], 04/25/2021 12:35:37 04/22/20 21 04/25/2021 CBC (INCL UDES DIFF/ PLT) monocytes 7.9 % normal Not Available [address], [address], 04/25/2021 12:35:37 04/22/20 21 04/25/2021 CBC (INCL UDES DIFF/ PLT) eosinophils 3.3 % normal Not Available [facility] [address], [address], 04/25/2021 12:35:37 04/22/20 21 04/25/2021 CBC (INCL UDES DIFF/ PLT) basophils 1.0 % normal Not Available [address], [address], 04/25/2021 12:35:37 04/22/20 21 04/25/2021 HS CRP hs CRP 3.2 mg/L high Refer ence Range Optim al <1.0 Sugey EVANS et al. Endoc r Pract .2017 ;23(S uppl 2):1- 87. For ages >17 Years : hs-CR P mg/L Risk Accor ding to AHA/C DC Guide lines <1.0 Lower relat bryant cardi ovasc ular risk. 1.0-3 .0 [place] ge relat bryant cardi ovasc ular risk. [...] tion and infla mmati on. Not Available [employer] [facility] [address], [place], [address], 04/25/2021 12:35:37 04/22/2004/25/2021 VITAM IN D,25- [place],TO [...] /MS is recom tyrese d: order code [id number] (michelle ents >2yrs ). See Note 1 Note 1 For addit ional infor christoph solis e refer to http: //miroslava land.Que stDia gnost ics.c om/fa q/FAQ 199 (This link is being provi ded for infor matio nal/ educa angelica l purpo ses only. ) Not Available [address] [address] [place], [address], 04/25/2021 12:35:38 04/22/20 21 04/25/2021 HEMOG LOBIN A1C hemoglobin A1C 5.8 %_of_ total _HGB <5.7 high Not Available [address] [address] [facility] [facility] [place] [place], [address], 04/25/2021 12:35:38 04/22/2004/25/2021 TESTO STERO NE, FREE (DIAL YSIS) AND TOTAL ,MS testosterone , total, MS 13 NG/dL 2-45 For addit ional christoph long refer to https ://ed [facility] on.qu [place]. com/f aq/FA Q165 (This link is being provi ded for infor matio nal/e ducat ional purpo ses only. ) (Note ) This test was devel oped and its mathieu tical perfo rmanc e rhonda cteri stics have been deter mined by [employer]. It has not been clear ed or appro luz by the FDA. This assay has been valid ated pursu ant to the CLIA regul ation s and is used for clini phoebe purpo ses. Not Available [facility] [address] [address] [facility] [place] [place], [address], 04/25/2021 12:35:39 04/22/20 21 04/25/2021 TESTO STERO NE, FREE (DIAL YSIS) AND TOTAL ,MS testosterone , free 2.2 pg/mL 0.1-6. 4 (Note ) This test was devel oped and its mathieu tical perfo rmanc e rhonda cteri stics have been deter mined by [employer]. It has not been clear ed or appro luz by the FDA. This assay has been valid ated pursu ant to the CLIA regul ation s and is used for clini phoebe purpo ses. MDF med fusio n [address] [facility] [address] [place] [address] [phone] Jani henao MD Not Available [employer] [facility] [address] [address], [place], [address], 04/25/2021 12:35:39 Result Notes None recorded. Problems No Known Problems Procedures Surgical History Date Name Laterality Status Provider Name and Address Organization Details Recorded Time Generic Procedure completed CAMILO ZARAGOZA [address], [place], [address], [facility], [employer] 04/20/2021 16:07:11 3 delivery completed Moses Thurman [facility] [employer], [employer] 04/20/2021 15:37:40 0 delivery completed Moses Thurman [facility] [employer], [facility] 04/20/2021 15:37:20 Imaging Results None recorded. Procedure Notes None recorded. Medical Equipment None Reported. Allergies Allergen ID Allergen Name Allergen Category Reaction Reaction Severity Criticality Documentation Date Start Date Code Code System Note Provider Name and Address Organization Details Recorded Time 06338 E-Mycin medicatio n itching severe Not available 04/20/202101559 8 RxNorm Moses Thurman [facility] [employer], [employer] 15:07:17 Medications Name Sig Start Date Stop [...] Updated DateTime 04/20/2021 160.02 cm 29.9 kg/m2 92953.11 g 66 /min 134/80 mm[Hg] Moses Thurman [employer] 04/20/2021 15:36:11 Social History Question Answer Notes LastModified by Organizat ion Details LastModified Time Tobacco Smoking Status Never Smoker Moses snider [employer] 04/20/2021 15:08:00 Do You Have An Advance Directive? No Information not available 04/20/2021 How Much Tobacco Do You Chew? None Information not available 04/20/2021 Are You Deaf Or Do You Have Serious Difficulty Hearing? No [email or web address] Information not available 04/20/2021 How Many Children Do You Have? 2 [email or web address] Information not available 04/20/2021 What Is Your Relationship Status? [email or web address] Information not available 04/20/2021 Do You Use Your Seat Belt Or Car Seat Routinely? Yes [email or web address] Information not available 04/20/2021 Are You Sexually Active? No [email or web address] Information not available 04/20/2021 Do You Have Smoke And Carbon Monoxide Detectors In Your Home? Yes [email or web address] Information not available 04/20/2021 Do You Use Sunscreen Routinely? No [email or web address] Information not available 04/20/2021 How Many Years Have You Smoked Tobacco? 0 [email or web address] Information not available 04/20/2021 Sex: Unknown Functional Status Question Answer Note LastModified by Organization D etails LastModified Time Are you currently employed? No [email or web address] Information not available 04/20/2021 Mental Status Question Answer Note LastModified by Organization D etails LastModified Time Do you feel stressed (tense, restless, nervous, or anxious, or unable to sleep at night)? [id number] Information not available 04/20/2021 Family History Relationship Description Onset Age of this Age Resolved Age Notes LastModified by Organization Details LastModified Time Father Diabetes mellitus 80 89 Not available 2020 15:07:23 Father Dementia 88 89 [email or web address] Not availabl e 04/20/2021 15:07:23 Medical History Condition Response Heart Problems Y Arthritis Y Fibromyalgia Y Hypertension Y High Cholesterol Y Gynecological HistoryNo gynecological history recorded. Obstetrics History GPAL:G 0 P 0 0 0 0 Past Encounters Encounter ID Performer Location Encounter Start Date Encounter Closed Date Diagnosis/Indication Diagnosis SNOMED-CT Code Diagnosis ICD10 Code Diagnosis IMO Codes Diagnosis Note [id number] CAMILO ZARAGOZA [facility] [address] [place] [address] 04/20/2021 14:46:12 04/21/2021 14:46:38 Bilateral osteoarthritis of knees 3542197220 05263 M17.0 At today's office visit the patient's [...] [facility] the [facility]. The risk and [...] M94.9 E55.9 Z13.228 Z13.1 Antibiotic prophylaxis indicated 957600230 Z78.9 Health Concerns Section Related Observation LastModified by Organization Detai ls LastModified Time None Recorded Concern Status LastModified by Organization Details LastModified Time None Recorded Advance Directives Directive N: Payers Insurance Date Sequence Insurance Name Policy Number Policy Haas Covered Member ID Haas Member ID Guarantor Name 06/13/2022 1 [place]ARE [place] Jacquie Nesbitt [id number] 1 Jacquie Samueltcher Notes Date Note Type Note Provider Name and Address Organization Details Recorded Time 04/20/2021 text/html 65-year-old female comes in today complaining of pain and [...] regards to pain and discomfort. CAMILO ZARAGOZA [address], [place], [address], [facility], [facility] 04/20/2021 16:08:04 OBGyn Episode No OBEpisode recorded.
--- OUTSIDE RECORDS SUMMARY | 2025-04-14 14:19 | XMS_ITS | Encounter Summary ---
Author Organization [employer] [facility] Address [address] [place] [address] Care Team Providers Care Can Sterilizer Name Role Phone Cristiane Parmar DO Primary Care Provider Giuliana vailable Encounter Details Date Type Department Care Team (Latest Contact Info) Description 01/25/2002 Outpatient Historical HIS [facility] JAMES Shukla Jr., [place] MD NO ADDRESS ON FILE BREAST DISORDERS NEC (Primary Dx) Social History Tobacco Use Types Packs/Day Years Used Date Smoking Tobacco: Never Assessed Comments Unknown Sex and Gender Information Value Date Recorded Sex Assigned at Not on file Legal Sex Female 3:19 AM CORE SHAPER SIDES Gender Identity Not on file Sexual Orientation Not on file documented as of this encounter Plan of Treatment Not on file documented as of this encounter Visit Diagnoses Diagnosis Other specified disorder of breast- Primary documented in this encounter Care Teams Can Sterilizer Relationship Specialty Start Date End Date Cristiane Parmar DO PCP - General Family Practice 05/07/24 03/07/25 documented as of this encounter
--- OUTSIDE RECORDS SUMMARY | 2025-04-14 14:19 | XMS_ITS | Encounter Summary ---
Author Organization [facility] Address [address] [place] [address] Care Team Providers Care Music Specialist Name Role Phone Tiffanie Agustin NP Primary Care Provider [phone] Encounter Details Date Type Department Care Team ([facility] st Contact Info) Description 02/25/2025 Results Follow-Up [facility] Family Medicine [address] [address] Tiffanie Agustin [place]OOK [address] [address] Hemoglobin A1c, Vitamin D 25 hydroxy, Thyroid Function [place], Additional followed-up results: 9 Social History Tobacco Use Types Packs/Day Years [...] often do you attend chur ch or evangelical services? More than 4 times per year 12/17/2022 Do you belong to any clubs o r organizations such as jewish groups, unions, fraternal or athletic groups, or [...] points, staff should administer the PHQ-9) 0 02/11/2025 PRAPARE - Transportation Answer Date Re corded [...] place to sleep or slept in a retirement (including now)? No 12/17/2022 PHQ-9 Answer Date [...] on file Legal Sex Female 2:03 PM BROKER ASSISTANT Gender Identity Female 11/27/2022 8:14 AM CDT Sexual Orientation Straight 07/06/2022 12 :07 AM BROKER ASSISTANT documented as of this encounter Plan of Treatment Not on file documented as of this encounter Visit Diagnoses Not on filedocumented in this encounter Care Teams Music Specialist Relationship Specialty Start Date End Date Tiffanie Agustin, CAMP COOK [address] [place] [address] PCP - General Family Medicine 02/04/25 documented as of this encounter
--- OUTSIDE RECORDS SUMMARY | 2025-04-14 14:20 | XMS_ITS | Clinical Summary ---
Author Organization [employer] Address [address] [place] [address] Care Team Providers Care Engine Installer Name Role Phone Unavailable Primary Care Provider Unavailabl e Allergies Active Allergy Reactions Criticality Noted Date [...] will call to schedule follow up with Diesel Machinist, referral placed. Status post total knee replacement, left 023 Overview (10/18/2023): 07/13/2022 Last Assessment & Plan: Our recommendation at this time is gradually increase her activities as tolerated. We'll give her position and directed exercises. At her request, we'll see her back as needed. Allergies 06/08/2022 Overview (10/18/2023): Added automatically from request for surgery [id number] Primary osteoarthritis of right knee 06/08/2022 Overview (10/18/2023): Last Assessment & Plan: Scheduled for surgery with Dr. Magaña 07/13/22. Added automatically from request for surgery [id number] Last Assessment & Plan: We discussed the [...] 07/13/2021 Added automatically from request for surgery [id number] Bilateral primary osteoarthritis of knee 021 Overview [...] Encounters Date Type Department Care Team Description 04/02/2025 External Device Data STL ABSTRACTION Provider, Abstract 03/05/2025 External Device Data STL ABSTRACTION Provider, Abstract 02/12/2025 External Device Data STL ABSTRACTION Provider, Abstract 01/23/2025 External Device Data STL ABSTRACTION Provider, Abstract [...] on file Legal Sex Female 3:19 AM CERTIFIED NURSING ASSISTANT INSTRUCTOR Gender Identity Not on file Sexual Orientation Not on file Last Filed Vital Signs Vital Sign Reading Time Taken Comments Blood Pressure 118/66 05/07/2024 2:44 PM CERTIFIED NURSING ASSISTANT INSTRUCTOR Pulse 84 05/07/2024 2:44 PM CERTIFIED NURSING ASSISTANT INSTRUCTOR Temperature 36.9 C (98.4 F) 05/07/2024 2:44 PM CERTIFIED NURSING ASSISTANT INSTRUCTOR Respiratory Rate 16 06/16/2023 9:30 AM CERTIFIED NURSING ASSISTANT INSTRUCTOR Oxygen Saturation 97% 05/07/2024 2:44 PM CERTIFIED NURSING ASSISTANT INSTRUCTOR Inhaled Oxygen Concentration - - Weight 68 kg (150 lb) 05/07/2024 2:44 PM CERTIFIED NURSING ASSISTANT INSTRUCTOR Height 160 cm (5' 3) 05/07/2024 2:44 PM CERTIFIED NURSING ASSISTANT INSTRUCTOR Body Mass Index 26.57 05/07/2024 2:44 PM CERTIFIED NURSING ASSISTANT INSTRUCTOR Plan of Treatment Health Maintenance Due Date Last Done Comments Pre-Diabetes and Diabetes Screening 1955 FIT-DNA Q 3 years 1999 FIT/FOBT Q 1 year 1999 Flex Sig/CT Colonography Q 5 years 1999 ZOSTER VACCINE (1 of 2) 2004 PNEUMOCOCCAL VACCINE 50+ YEA RS (2 of 2 - PCV20 or PCV21) 07/13/2020 07/13/2019 DTAP/TDAP/TD VACCINES (2 - T d or Tdap) 03/29/2022 03/29/2012 BREAST CANCER SCREENING 11/02/2024 11/03/19, 11/03/2023, 04/21/2016, Additional history exists INFLUENZA VACCINE (#1) 2025 4, 03/31/2020, 02/22/2019, Additional history exists OSTEOPOROSIS SCREENING 07/06/2027 3, 07/06/2022, 11/14/2013 COLORECTAL SCREENING 08/27/2027 08/26/2017 (Previously completed), 01/30/2007 [...] ASSESSMENT: BI-RADS 1 - Negative DICTATION LOCATION: [facility] 11/04/2023 10:04 AM CDT BILATERAL SCREENING DIGITAL [...] ASSESSMENT: BI-RADS 1 - Negative DICTATION LOCATION: [facility] Gómez Shukla Jr., MD MAMMO ORDERABLES Final R esult * XR DEXA BONE DENSITY AXIAL 1 OR MORE SITES (11/14/2013) Anatomical Region Laterality Modality Other Abstract Provider DIAGNOSTIC IMAGING ORDERABLES Final Result from Last 3 Months or Most Recently Relevant to Health Maintenance Insurance MEDICARE PART A AND B [facility]
[2025-04-14 14:45] VITALS: BP 137/79; PULSE 72; RESP 16; O2SAT 96
[2025-04-14 14:48] LABS: Hematocrit 42.9 % (37.0-47.0); Hemoglobin 14.1 g/dL (12.0-15.0); Immature Granulocyte Percent A 0.5 % (0-0.5); Lymphocytes Absolute Auto 1.93 K/mm3 (0.9-3.2); Mean Corpuscular HGB Conc 32.9 g/dl (32-36); Mean Corpuscular Hemoglobin 29.4 pg (26-34); Mean Corpuscular Volume 89.6 fl (80-100); Nucleated Red Blood Cells Absolute Auto 0.000 K/mm3 (0.0-0.012); Nucleated Red Blood Cells Perc 0.0 % (0.0-0.2); Platelet Count Result 361 k/mm3 (150-375); Red Blood Count 4.79 M/mm3 (4.2-5.4); White Blood Count 8.3 K/mm3 (4.5-10.0)
--- NOTE | 2025-04-14 14:48 | ED_ITS ---
HPI - Female Genitourinary General Chief complaint: Urogenital-Female Stated complaint: L flank pain Time Seen by Provider: 04/14/25 14:20 History of Present Illness HPI Narrative: 69-year-old female with history of fibromyalgia, depression and prediabetes presenting to the emergency room with left flank pain that occurred this morning. Sudden-onset and came in waves of pain. States she had some increased urgency that also resolved but no other urinary complaints. No fever chills. No chest pain shortness a breath. Pain is mild and tolerable at this time. No history of kidney stones or traumatic injuries. Was otherwise in her normal state of health. No recent medication changes. Related Data Home Medications ?Medication ?Instructions ?Recorded ?Confirmed ?Last Taken ?Type ezetimibe 10 mg tablet 10 mg PO DAILY 06/12/2311/18 Unknown History Allergies Allergy/AdvReac Type Severity Reaction Status Date / Time indomethacin (From Indocin) Allergy Unknown Unknown Verified 12/05/24 09:07 duloxetine AdvReac Severe Hallucinati Verified 12/05/24 09:07 ng Review of Systems 2 Review of Systems: As reviewed above in HPI [facility] Past Medical History Medical History Mixed hyperlipidemia Seasonal allergies Depression Histronic and borderline features per psychiatry Anxiety GERD (gastroesophageal reflux disease) Fibromyalgia Surgical History Surgical History History of knee replacement Social History Social History Smoking status: Never smoker Exam 2 Narrative: GENERAL: [Well-appearing, well-nourished, and in no acute distress.] HEAD: [Normocephalic, atraumatic.] EYES: [PERRLA and EOMI.] ENT: Nares clear, no rhinorrhea or epistaxis. Mucous membranes moist. NECK: Supple. CHEST: [Clear to auscultation. No respiratory distress.] HEART: [Regular rate and rhythm]. No murmur heard. [Normal peripheral pulses.] ABDOMEN: Soft and nondistended, no CVA tenderness. No rigidity or guarding. No upper abdominal or lower quadrant tenderness. EXTREMITIES: Normal range of motion. [No edema.] SKIN: Warm, dry, no rash. NEURO: [No focal deficits]. Alert and oriented [x3.] PSYCH: [Normal mood and affect.] Course Vital Signs Vital signs: Vital Signs Temperature 36.5 C 04/14/25 14:17 Pulse Rate 74 04/14/25 14:17 Respiratory Rate 15 04/14/25 14:17 Blood Pressure 154/78 H 04/14/25 14:17 Pulse Oximetry 99 04/14/25 14:17 Oxygen Delivery Room Air 04/14/25 14:17 Temperature 36.5 C 04/14/25 14:17 Pulse Rate 72 04/14/25 14:45 Respiratory Rate 16 04/14/25 14:45 Blood Pressure 144/83 H 04/14/25 16:08 Pulse Oximetry 96 04/14/25 14:45 Oxygen Delivery Room Air 04/14/25 14:17 MDM - Female Genitourinary MDM Narrative Medical decision making narrative: 69-year-old female with history of fibromyalgia, depression and prediabetes presenting to the emergency room with left flank pain that occurred this morning. Sudden-onset and came in waves of pain. States she had some increased urgency that also resolved but no other urinary complaints. No fever chills. No chest pain shortness a breath. Pain is mild and tolerable at this time. No history of kidney stones or traumatic injuries. Was otherwise in her normal state of health. No recent medication changes. Patient has normal vital signs is afebrile, no tachycardia. Benign physical examination was soft nontender nondistended abdomen with no CVA tenderness. Given localized flank pain that comes in waves with some urinary urgency suspicious for renal colic, urinary tract infection, pyelonephritis. Laboratory studies urinalysis and CT scan without contrast ordered. Patient states her pain is tolerable at this time and did not want anything additional for analgesia. CT scan shows 2 mm distal ureteral stone, mild hydro. Urinalysis with blood but no infection. He laboratory studies normal without any leukocytosis or anemia. Normal kidney function. Normal electrolytes. Discussed with the patient treatment regimen including starting tamsulosin to help pass the stone as well as some pain control medications. Patient has and about taking tamsulosin but will take the pain medicines and follow-up with her primary doctor and the provided urologist. Patient given return precautions and safely discharged. Medical Records Attestation: I reviewed the patient's medical records. Lab Data Attestation: I reviewed the patient's lab results. 04/14/25 14:40 04/14/25 14:40 Labs: Lab Results 04/14/25 04/14/25 Range/Units 14:40 14:40 WBC 8.3 (4.5-10.0) K/mm3 RBC 4.79 (4.2-5.4) M/mm3 Hgb 14.1 (12.0-15.0) g/dL Hct 42.9 (37.0-47.0) % MCV 89.6 (80-100) fl MCH 29.4 (26-34) pg MCHC 32.9 (32-36) g/dl RDW 13.0 (11.5-14.5) % Plt Count 361 (150-375) k/mm3 MPV 9.4 (7.4-10.4) fl Immature Gran % (Auto) 0.5 (0-0.5) % Neut % (Auto) 65.3 (45.5-73.1) % Lymph % (Auto) 23.3 (18.3-44.2) % [place] % (Auto) 7.8 (2.6-8.5) % Eos % (Auto) 2.3 (0-4.4) % Baso % (Auto) 0.8 (0.2-1.2) % Lymph # (Auto) 1.93 (0.9-3.2) K/mm3 [place] # (Auto) 0.7 H (0.1-0.6) K/mm3 Eos # (Auto) 0.2 (0-0.3) K/mm3 Baso # (Auto) 0.1 (0.0-0.1) K/mm3 Abs Immat Gran (auto) 0.04 H (0.00-0.031) K/mm3 Absolute Neuts (auto) 5.4 (1.3-6.7) K/mm3 Absolute Nucleated RBC 0.000 (0.0-0.012) K/mm3 Nucleated RBC % 0.0 (0.0-0.2) % Sodium 137 (137-145) mmol/L Potassium 4.0 (3.4-5.0) mmol/L Chloride 101 (98-107) mmol/L Carbon Dioxide 30 (22-30) mmol/L Anion Gap 6 (4-12) mmol/L BUN 16 (7-17) mg/dL Creatinine 0.73 (0.7-1.0) mg/dL Estim Creat Clear Calc 59 ml/min Estimated GFR > 60 (59 - ) Glucose 94 (65-110) mg/dL Calcium 9.4 (8.4-10.2) mg/dL Total Bilirubin 0.3 (0.2-1.3) mg/dL AST 28 (14-36) U/L ALT 22 (6-35) U/L Alkaline Phosphatase 106 (38-126) U/L Total Protein 7.6 (6.3-8.2) g/dL Albumin 4.5 (3.5-5.1) g/dL Lipase 136 Cancelled (23-300) U/L Urine Color Yellow (Yellow) Urine Appearance Clear (Clear) Urine pH 7.5 (5.0-9.0) Ur Specific [place] 1.013 (1.001-1.035) Urine Protein Negative (Negative) mg/dL Urine Glucose (UA) Negative (Negative) mg/dL Urine Ketones Negative (Negative) mg/dL Ur Blood (Man) 2+ H (Negative) Urine Nitrate Negative (Negative) Urine Bilirubin Negative (Negative) Urine Urobilinogen 0.2 (<2.0) mg/dL Leukocyte Esterase Rfl Negative (Negative) ELIZ/UL Urine RBC 51-100 H (0-2) /hpf Urine WBC 0-5 (0-3) /hpf Ur Squamous Epith Cells None seen (Few) /hpf Urine Bacteria None seen /hpf Urine Casts 0-2 Imaging Data Attestation: I personally reviewed and interpreted this imaging study as follows: My impression: Left kidney mild hydronephrosis and hydroureter due to an obstructing distal 2 x 2 millimeter ureteral calculus. Discharge Plan Discharge Clinical Impression: Calculus of distal left ureter, Renal colic Patient Disposition: Home Condition: Stable Instructions: Antibiotic Form, Kidney Stones (ED), Renal Colic (ED), How to Strain Your Urine (ED), Flank Pain (ED) Additional Instructions: You have a 2 mm kidney stone in the distal urinary tract. No signs of kidney damage or infection. Take the prescribed medications. Follow-up with your regular primary care provider and the provided urologist if this is a recurrent issue or concern. Return with any worsening pain, inability to tolerate oral intake, fevers or other emergent concerns Patient Language: Tajik Prescriptions: New tamsulosin [Flomax] 0.4 mg capsule 0.4 mg PO DAILY Qty: 20 0RF ketorolac 10 mg tablet 10 mg PO Q8H PRN (Reason: pain) 5 Days Qty: 20 0RF Rx Instructions: maximum total duration of 5 days from all oral, intranasal, or parenteral formulations ondansetron 4 mg tablet,disintegrating 4 mg PO Q8H PRN (Reason: nausea and vomiting) Qty: 10 0RF No Action ezetimibe 10 mg tablet 10 mg PO DAILY venlafaxine 75 mg capsule,extended release 24hr 225 mg PO DAILY Qty: 1 0RF pantoprazole 20 mg tablet,delayed release (DR/EC) 20 mg PO QHS Qty: 90 1RF metaxalone 800 mg tablet 800 mg PO TID PRN (Reason: muscle pain) Qty: 90 0RF Follow-up/Referrals: Sudha Cline MD [Physician, Urology] - 1 Week Referral Note: distal ureteral stone w/ hydro Vamsi,PER Moreno [Primary Care Provider, Unknown] Time of Disposition: 15:42
[2025-04-14 14:51] LABS: Add Urine Microscopic? YES; Appearance Urine Clear (Clear); Glucose Urine UA Negative (Negative); Leukocyte Esterase Ur Negative LEU/UL (Negative); Nitrate Urine Negative (Negative); Non Pathogenic Casts 0-2; Specific Grav Ur 1.013 (1.001-1.035)
[2025-04-14 15:10] LABS: Alanine Aminotransferase 22 U/L (6-35); Albumin Level 4.5 g/dL (3.5-5.1); Alkaline Phosphatase 106 U/L (38-126); Anion Gap 6 mmol/L (4-12); Aspartate Amino Transferase 28 U/L (14-36); Bilirubin,Total 0.3 mg/dL (0.2-1.3); Blood Urea Nitrogen 16 mg/dL (7-17); Calcium 9.4 mg/dL (8.4-10.2); Carbon Dioxide 30 mmol/L (22-30); Chloride 101 mmol/L (98-107); Estimated CRCL calculation 59 ml/min; Estimated Glomerular Filt Rate > 60; Glucose 94 mg/dL (65-110); Lipase 136 U/L (23-300); Potassium 4.0 mmol/L (3.4-5.0); Sodium 137 mmol/L (137-145); Total Protein 7.6 g/dL (6.3-8.2)
[2025-04-14 16:08] VITALS: BP 144/83
== END 2025-04-14 16:10 | disposition home or self-care (01) ==
PROVIDERS: Emergency Provider Student in an Organized Health Care Education/Training Program; PCP Family Medicine
DX: N20.1 Calculus of ureter (principal); E78.5 Hyperlipidemia, unspecified; F32.A Depression, unspecified; F41.9 Anxiety disorder, unspecified; K21.9 Gastro-esophageal reflux disease without esophagitis; M79.7 Fibromyalgia
CPT/HCPCS: 36415; 74176; 80053; 81001; 83690; 85025; 99284

== ENCOUNTER 2025-04-16 17:24 | Emergency (ER) | payer MEDICARE, SELFPAY ==
--- OUTSIDE RECORDS SUMMARY | 2025-04-15 14:15 | XMS_ITS | Encounter Summary ---
Author Organization [facility] Address [address] [place] [address] Care Team Providers Care Field Court Researcher Name Role Phone Tiffanie Agustin NP Primary Care Provider [phone] Reason for Referral * Consultation (Routine) - Authorized Specialty Diagnoses / Procedures Referred By Levon blanton Referred To Contact Dermatology Diagnoses Encounter for surveillance of abnormal nevi Tiffanie Agustin NP [address] [place] [address] Phone: tel: fax: Aleena Gay MD [address] [place] [address] Phone: tel: fax: Referral ID Status Reason Start Date Expiration Date Visits Requested Visits Authorized [id number] Authorized Specialty Services Required 05/15/2026 1 1 Question Answer Please select the performing region: External Order [171] To Provider NOTE: we will do our best to honor your provider preference, but scheduling the patient in a timely manner in our clinic will take precedence. ALEENA GAY [[id number]] # of visits: 1 * Consultation (Routine) - Authorized Specialty Diagnoses / Procedures Referred By Contac t Referred To Contact Urology Diagnoses Left nephrolithiasis Tiffanie Agustin NP [address] [place] [address] Phone: tel: fax: [facility] (All Locations) Referral ID Status Reason Start Date Expiration Date Visits Requested Visits Authorized [id number] Authorized Specialty Services Required 05/15/2026 1 1 Question Answer Please select the performing region: [facility] (All Locations) [167] # of visits: 1 Reason for Visit * Reason Comments ER FOLLOW UP Encounter Details Date Type Department Care Team (Latest Contact Info) Description 04/15/2025 2:15 PM CDT Office Visit [facility] Primary Care at [address] [phone] Tiffanie Agustin NP [address] [place] [address] Left nephrolithiasis (Primary Dx); Encounter for surveillance of abnormal nevi Social History Tobacco Use Types Packs/Day Years [...] often do you attend chur ch or yarsanism services? More than 4 times per year 12/17/2022 Do you belong to any clubs o r organizations such as jew groups, unions, fraternal or athletic groups, or [...] place to sleep or slept in a correction (including now)? No 12/17/2022 PHQ-9 Answer Date [...] on file Legal Sex Female 2:03 PM WAREHOUSE SPECIALIST Gender Identity Female 11/27/2022 8:14 AM CDT Sexual Orientation Straight 07/06/2022 12 :07 AM WAREHOUSE SPECIALIST documented as of this encounter Last Filed Vital Signs Vital Sign Reading Time Taken Comments Blood Pressure 120/73 04/15/2025 1:55 PM CDT Pulse 97 04/15/2025 1:55 PM CDT Temperature 36.3 C (97.3 F) 04/15/2025 1:55 PM CDT Respiratory Rate 20 04/15/2025 1:55 PM CDT Oxygen Saturation 97% 04/15/2025 1:55 PM CDT Inhaled Oxygen Concentration - - Weight 71.7 kg (158 lb) 04/15/2025 1:55 PM CDT Height 160 cm (5' 2.99) 04/15/2025 1:55 PM CDT Body Mass Index 28 04/15/2025 1:55 PM CDT documented in this encounter Progress Notes * Tiffanie Agustin, CHRISTMAS TREE FARM MANAGER - 04/15/2025 2:15 PM CDT Images from the original note were not included. Assessment/Plan: Assessment/Plan Diagnoses and all orders for this visit: Left nephrolithiasis (Primary) Assessment & Plan: New diagnosis No records available for review at time of visit Referral made to urology for further evaluation and management Encouraged to increase fluid intake, strain urine for stone Orders: - Ambulatory referral to Urology; Future Encounter for surveillance of abnormal nevi Assessment & Plan: Referral made to dermatology Orders: - Ambulatory referral to Dermatology; Future No follow-ups on file. Subjective: Jacquie Nesbitt is a 69 y.o. female here for an ER follow up visit. HPI Chief Complaint Patient presents with ER FOLLOW UP She was seen in the ER at [facility] yesterday afternoon for symptoms of left-sided/flank pain, had a CT scan and lab work, states she was told she had a kidney stone left kidney, urine was fine. She was prescribed 3 different medication, one for nausea, one to help pass the stone, and onefor pain, does not recalls, hasn't started taking yet, not sure if she will. She states all her pain has resolved. She also has a new bump on her back, not sure what it is, did scratch to see if it would come off. Objective: Review of Systems Constitutional: Positive for diaphoresis (resolved, but had episode with pain, also with hot flashes, taking Estroven without benefit) and fatigue. Negative for chills. Respiratory: Negative for cough, chest tightness, shortness of breath and wheezing. Gastrointestinal: Positive for nausea (resolved with resolution of pain, denies currently). Negative for abdominal pain and vomiting. Genitourinary: Positive for flank pain. Negative for decreased urine volume, difficulty urinating, dysuria, frequency, hematuria, pelvic pain and urgency. Vitals BP 120/73 (BP Location: Right arm, Patient Position: Sitting) Pulse 97 Temp 36.3 ??C (97.3 ??F) (Temporal) Resp 20 Ht 160 cm (5' 2.99) Wt 71.7 kg (158 lb) SpO2 97% BMI 28.00 kg/m?? Physical Exam Vitals and nursing note reviewed. Constitutional: General: She is not in acute distress. Appearance: Normal appearance. She is not ill-appearing, toxic-appearing or diaphoretic. HENT: Head: Normocephalic and atraumatic. Eyes: General: No scleral icterus. Right eye: No discharge. Left eye: No discharge. Conjunctiva/sclera: Conjunctivae normal. Cardiovascular: Rate and Rhythm: Normal rate and regular rhythm. Heart sounds: Normal heart sounds. No murmur heard. Pulmonary: Effort: Pulmonary effort is normal. Breath sounds: Normal breath sounds. No wheezing, rhonchi or rales. Musculoskeletal: General: No swelling, tenderness, deformity or signs of injury. Comments: No pain upon palpation of lumbar spine, lumbar paravertebral muscles, or bilateral SI joints. No CVA tenderness with percussion. Skin: Coloration: Skin is not jaundiced or pale. Findings: Lesion present. No rash. Comments: Lesion mid-back asymmetrical with ill-defined borders and variations in color Neurological: General: No focal deficit present. Mental Status: She is alert and oriented to person, place, and time. Psychiatric: Mood and Affect: Mood normal. Behavior: Behavior normal. Thought Content: Thought content normal. No follow-ups on file. Tiffanie Agustin WINDING INSPECTOR AND TESTER BC documented in this encounter Miscellaneous Notes * Assessment & Plan Note - Tiffanie Agustin NP - 04/15/2025 2:38 PM CDTAssociated Problem(s): Encounter for surveillance of abnormal nevi Referral made to dermatology * Assessment & Plan Note - Tiffanie Agustin NP - 04/15/2025 2:38 PM CDTAssociated Problem(s): Left nephrolithiasis New diagnosis No records available for review at time of visit Referral made to urology for further evaluation and management Encouraged to increase fluid intake, strain urine for stone documented in this encounter Plan of Treatment Scheduled Referrals Name Type Priority Associated Diagnoses Orde r Schedule Ambulatory referral to Urology Outpatient Referral Routine Left nephrolithiasis Expected: 04/29/2025 (Approximate), Expires: 04/15/2026 Ambulatory referral to Dermatology Outpatient Referral Routine Encounter for surveillance of abnormal nevi Expected: 04/29/2025 (Approximate), Expires: 04/15/2026 documented as of this encounter Visit Diagnoses Diagnosis Left nephrolithiasis- Primary Encounter for surveillance of abnormal nevi documented in this encounter Care Teams Field Court Researcher Relationship Specialty Start Date End Date Tiffanie Agustin NP [address] [place] [address] PCP - General Family Medicine 02/04/25 documented as of this encounter
--- OUTSIDE RECORDS SUMMARY | 2025-04-15 14:15 | XMS_ITS | Encounter Summary ---
Author Organization [facility] Address [address] [place] [address] Care Team Providers Care Copy Lathe Operator Name Role Phone Tiffanie Agustin NP Primary Care Provider [phone] Reason for Referral * Consultation (Routine) - Authorized Specialty Diagnoses / Procedures Referred By Levon blanton Referred To Contact Dermatology Diagnoses Encounter for surveillance of abnormal nevi Tiffanie Agustin NP [address] [place] [address] Phone: tel: fax: Aleena Gay MD [address] [place] [address] Phone: tel: fax: Referral ID Status Reason Start Date Expiration Date Visits Requested Visits Authorized [id number] Authorized Specialty Services Required 05/15/2026 1 1 Question Answer Please select the performing region: External Order [171] To Provider NOTE: we will do our best to honor your provider preference, but scheduling the patient in a timely manner in our clinic will take precedence. ALEENA GAY [[id number]] # of visits: 1 * Consultation (Routine) - Authorized Specialty Diagnoses / Procedures Referred By Contac t Referred To Contact Urology Diagnoses Left nephrolithiasis Tiffanie Agustin NP [address] [place] [address] Phone: tel: fax: [facility] (All Locations) Referral ID Status Reason Start Date Expiration Date Visits Requested Visits Authorized [id number] Authorized Specialty Services Required 05/15/2026 1 1 Question Answer Please select the performing region: [facility] (All Locations) [167] # of visits: 1 Reason for Visit * Reason Comments ER FOLLOW UP Encounter Details Date Type Department Care Team (Latest Contact Info) Description 04/15/2025 2:15 PM CDT Office Visit [facility] Primary Care at [address] [phone] Tiffanie Agustin NP [address] [place] [address] Left nephrolithiasis (Primary Dx); Encounter for [...] often do you attend chur ch or orthodox services? More than 4 times per year 12/17/2022 Do you belong to any clubs o r organizations such as jain groups, unions, fraternal or athletic groups, or [...] place to sleep or slept in a prison (including now)? No 12/17/2022 PHQ-9 Answer Date [...] on file Legal Sex Female 2:03 PM CABLE TENDER Gender Identity Female 11/27/2022 8:14 AM CDT Sexual Orientation Straight 07/06/2022 12 :07 AM CABLE TENDER documented as of this encounter Last Filed [...] this encounter Progress Notes * Tiffanie Agustin, MOTHER HELPER - 04/15/2025 2:15 PM CDT Images from [...] She was seen in the ER at [facility] yesterday afternoon for symptoms of left-sided/flank pain, [...] normal. No follow-ups on file. Tiffanie Agustin WHEELMAN BC documented in this encounter Miscellaneous Notes [...] nevi documented in this encounter Care Teams Copy Lathe Operator Relationship Specialty Start Date End Date Tiffanie Agustin NP [address] [place] [address] PCP - General Family Medicine 02/04/25 documented as of this encounter
--- OUTSIDE RECORDS SUMMARY | 2025-04-16 18:00 | XMS_ITS | Encounter Summary ---
Author Organization [facility] Address [address] [place] [address] Care Team Providers Care Incubator Operator Name Role Phone Tiffanie Agustin NP Primary Care Provider [phone] Encounter Details Date Type Department Care Team (Late st Contact Info) Description 04/16/2025 Results Follow-Up [facility] Cardiology [address] [facility] [address] [facility] [address] [place] [phone] Dominique Ventura NP [address] [place] [address] Transthoracic Echo (TTE) Complete W Doppler/CF Social History Tobacco Use Types Packs/Day Years [...] 12/17/2022 How often do you attend chur or roman catholic services? More than 4 times per year 12/17/2022 Do you belong to any clubs o r organizations such as restorationism groups, unions, fraternal or athletic groups, or [...] place to sleep or slept in a half-way (including now)? 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
--- OUTSIDE RECORDS SUMMARY | 2025-04-16 18:01 | XMS_ITS | Encounter Summary ---
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 Answer Date of Assessment Author Status No 07/13/2022 2:00 PM CLEAN ROOM ASSEMBLER Activ e * Do you have serious [...] 2:31 PM Shukri Estes RN Active * [place] Suicide Severity Rating Scale (Screener/Recent Self-Report) Question [...] documented as of this encounter Care Teams Irish Moss Gatherer Relationship Specialty Start Date End Date Radha Vanegas MD [address] [place] [address] PCP - General FAMILY PRACTICE 11/01/23 documented as of this encounter
--- OUTSIDE RECORDS SUMMARY | 2025-04-16 18:01 | XMS_ITS | Encounter Summary ---
Author Organization [facility] - [facility] Address [address] [place] [address] Care Team Providers Care Mammography Supervisor Name Role Phone Radha Vanegas MD Primary Care Provider [phone] Encounter Details Date Type Department Care Team (Late st Contact Info) Description 09/03/2024 Check Message [facility] Patient Accounts [address] [place] [address] [employer] [facility] Provider Auto Payment Social History Tobacco Use [...] Sex Assigned at Female 07/03/2024 1:23 PM PHLEBOTOMY SERVICES TECHNICIAN Legal Sex Female 5:45 PM CDT Gender Identity Female 10/03/2024 9:02 AM CDT Sexual Orientation Straight 10/03/2024 9: 02 AM CDT documented as of this encounter Functional Status * RETIRED Are you deaf or do you have serious difficulty hearing Answer Date of Assessment Author Status No 07/13/2022 2:00 PM PHLEBOTOMY SERVICES TECHNICIAN Activ e * RETIRED Are you blind or do you have serious difficulty seeing, even when wearing glasses? Answer Date of Assessment Author Status No 07/13/2022 2:00 PM PHLEBOTOMY SERVICES TECHNICIAN Activ e * Do you have serious [...] Total Score: 1 05/25/20 24 2:28 PM PHLEBOTOMY SERVICES TECHNICIAN documented as of this encounter Care Teams Mammography Supervisor Relationship Specialty Start Date End Date Radha Vanegas MD [address] [place] [address] PCP - General FAMILY PRACTICE 11/01/23 documented as of this encounter
--- OUTSIDE RECORDS SUMMARY | 2025-04-16 18:01 | XMS_ITS | Encounter Summary ---
Author Organization [facility] Address [address] [facility] [address] Care Team Providers Care Corrosion Prevention Metal Sprayer Name Role Phone Keon Butterfield MD Primary Care Provider [phone] Radha Vanegas MD Primary Care Provider [phone] Encounter Details Date Type Department Care Team (Late st Contact Info) Description 10/17/2018 Lab Requisition [facility] Care [facility] Lab [address] [facility] [place] [address] Raeann Carlisle, [address] [facility] [address] [place] [address] Social History Tobacco Use Types Packs/Day Years Used Date Smoking Tobacco: Former Cigarettes Smokeless Tobacco: Never Comments:1 month in her 30s Alcohol Use Standard Drinks/Week Comments No 0 (1 standard drink = 0.6 oz pur e alcohol) Comments No Sex and Gender Information Value Date Recorded Sex Assigned at Not on file 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 Jar 0. 12:31 PM CDT DERMATOPATHOLOGY LABORATORY [...] characteristic determined by the Dermatopathology Laboratory at [facility], directed by Dr. Mary Carmen Benson. These tests need not be, and therefore are not, approved by the [place] Food and Drug Administration. The tests are used for clinical purposes. Billing Codes Specimen Charges Stain Charges 79371 1 9 12:31 PM CDT DERMATOPATHOLOGY LABORATORY Embedded Images 9 12:31 PM CDT DERMATOPATHOLOGY LABORATORY Pathology/Cytolog y TISSUE SPECIMEN FROM SKIN / Unknown 10/16/2018 10/17/2018 10:51 AM CDT Raeann Carlisle DO LAB - PATHOLOGY/CYTOLOGY ORDERABLES Final Result DERMATOPATHOLOGY LABORATORY [facility] - Department of Dermatology [address] [place] [address], 5[address] Floor Lab [address] [phone] documented in this encounter Visit Diagnoses Not on filedocumented in this encounter Care Teams Corrosion Prevention Metal Sprayer Relationship Specialty Start Date End Date Keon Butterfield MD [address] [place] [address] PCP - General 08/01/18 11/12/23 Radha Vanegas MD PCP - General Family Medicine 11/13/23 documented as of this encounter
--- OUTSIDE RECORDS SUMMARY | 2025-04-16 18:01 | XMS_ITS | Encounter Summary ---
Author Organization [facility] Address [address] [place] [address] Care Team Providers Care Circle Beveler Name Role Phone Cristiane Parmar DO Primary Care Provider Giuliana vailable Encounter Details Date Type Department Care Team (Late st Contact Info) Description 05/18/[address] 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
--- OUTSIDE RECORDS SUMMARY | 2025-04-16 18:01 | XMS_ITS | Clinical Summary ---
Author Organization [facility] [address] [facility] Address [address] [place] [address] Care Team Providers Care Recycling Assistant Name Role Phone Tiffanie Agustin NP Primary Care Provider Allergies Active Allergy Reactions Criticality Noted Date [...] BY MOUTH IN THE MORNING Active mv,with Gf-xbty-YT-lut-17 9herb 13.5-200-250 mg-mcg-mcg tablet Take by mouth [...] Active Problems Problem Noted Date Diagnosed Date Left nephrolithiasis 04/15/2025 Assessment & Plan (04/15/2025 2:38 PM CDT): New diagnosis No records available for review at time of visit Referral made to urology for further evaluation and management Encouraged to increase fluid intake, strain urine for stone Encounter for surveillance of abnormal nevi 03/21 Assessment & Plan (04/15/2025 2:38 PM CDT): Referral made to dermatology Short-term memory loss 03/25/2025 Assessment & Plan (03/25/2025 10:08 AM CDT): Performed mini-mental exam, scored 30/30 Offered referral to [facility], not interested at [...] week Assessment & Plan (07/12/2018 2:41 PM ELECTRONIC COMMERCE SPECIALIST): Diet= low-carb Limit white bread, rice, pasta, potatoes, juice, energy drinks, coffee creamers with sugar, sugar sodas, candy, cake, cookies, ice cream. Be more careful with starchy vegetables like corn, carrots, and fruits. Stay away from processed foods, fast foods, fried foods. The cornerstone of this diet is lean grilled meats, green salads or cooked greens, fat-free milk, cottage cheese, nuts like qkdqebz-boajrkx-kgxxpcr, protein bars with 10-15 g of protein [...] will call to schedule follow up with Merchandising Manager, referral placed. Encounter for preoperative e xamination for general surgical procedure 07/01/2022 02/04/2025 Assessment & Plan (07/01/2022 11:53 AM ELECTRONIC COMMERCE SPECIALIST): Reviewed past medication history. No sleep apnea, cardiac disease, or smoking history. EKG completed today, NSR. Cleared for upcoming surgery. Bilateral primary osteoarthritis of knee 09/23/2020 02/04/2025 Assessment & Plan (01/25/2022 12:59 PM CDT): Continues meloxicam use. Following with ortho for injections as needed. Visual disturbance 10/13/2018 Scaly patch rash 07/12/2018 02/04/2025 Assessment & Plan (07/13/2018 11:20 AM ELECTRONIC COMMERCE SPECIALIST): Sporadic small scaly dry red patches on [...] Encounters Date Type Department Care Team Description 04/16/2025 Results Follow-Up [facility] Cardiology [address] [facility] [address] [place] [address] Dominique Ventura NP Transthoracic Echo (TTE) Complete W Doppler/CF 04/15/2025 2:15 PM CDT Office Visit [facility] Primary Care at [address] [place] [address] Tiffanie Agustin NP Left nephrolithiasis (Primary Dx); Encounter for surveillance of abnormal nevi 04/12/2025 12:57 PM CDT - 04/12/2025 11:59 PM CDT Hospital Encounter [facility] ([place], [place]) Cardiac Testing [address] [place] [address] Palpitations Discharge Disposition: Discharge to home or self care 03/28/2025 Telephone [facility] Primary Care at [address] [place] [address] Tiffanie Agustin NP 03/25/2025 7:45 AM CDT Office Visit [facility] Primary Care at [address] [address] Tiffanie Agustin NP Short-term memory loss (Primary Dx); Fibromyalgia; Moderate episode of recurrent major depressive disorder (HCC); Mixed hyperlipidemia; Prediabetes; Not immune to hepatitis B virus; Need for vaccination 03/18/2025 1:00 PM CDT Office Visit [facility] Obstetrical Gynecology [address] [facility] [address] [place] [address] Go George MD Menopausal symptoms (Primary Dx) 02/25/2025 10:20 AM CDT Lab [facility] [address] [place] [address] Prediabetes; Low bone mass; Screening for thyroid disorder; Mixed hyperlipidemia; CKD (chronic kidney disease) stage 2, GFR 60-89 ml/min; Screening, anemia, deficiency, iron; Need for hepatitis C screening test; Need for hepatitis B screening test 02/25/2025 Results Follow-Up [facility] Family Medicine [address] [phone] Tiffanie Agustin NP Hemoglobin A1c, Vitamin D 25 hydroxy, Thyroid Function [place], Additional followed-up results: 9 02/21/2025 1:30 PM CDT Office Visit [facility] Cardiology [address] [facility] [address] [place] [address] Yoan Guallpa MD Hyperlipidemia, unspecified hyperlipidemia type (Primary Dx); Palpitations 02/11/2025 8:15 AM CDT Office Visit [facility] Primary Care at [address] [place] [phone] Tiffanie Agustin NP Encounter for Medicare annual [...] Atherosclerosis of aorta; Hot flashes 02/06/2025 Telephone [facility] Primary Care at [address] [place] [address] Tiffanie Agustin NP Medical Question/Miscellaneous 02/04/2025 11:30 AM CDT Office Visit [facility] Primary Care at [address] [address] Tiffanie Agustin NP Encounter to [...] 1982 KNEE SURGERY 07/13/2022 Left done at [facility] TOTAL KNEE ARTHROPLASTY 09/18/2024 Right HYSTERECTOMY Too many years ago t o remember sometime in the or early still have one over left that s [...] How often do you attend chur or alevism services? More than 4 times per year 12/17/2022 Do you belong to any clubs o r organizations such as adventism groups, unions, fraternal or athletic groups, or [...] place to sleep or slept in a [place] care facility (including now)? No 12/17/2022 PHQ-9 Answer Date [...] on file Legal Sex Female 2:03 PM ELECTRONIC COMMERCE SPECIALIST Gender Identity Female 11/27/2022 8:14 AM CDT Sexual Orientation Straight 07/06/2022 12 :07 AM ELECTRONIC COMMERCE SPECIALIST Obstetrics History Para Term AB IAB SAB [...] Mass Index 28 04/15/2025 1:55 PM CDT Plan of Treatment Health Maintenance Due Date Last Done Comments Zoster Vaccine (1 of 2) 2004 DTaP/Tdap/Td Vaccine (2 - Td or Tdap) 03/29/2022 03/29/2012 Osteoporosis Screening-Bone Density Scan 07/06/2024 07/06/2022, 11/14/2013, 11/14/2013 Breast Cancer Screening-Mammogram 11/02/2024 11/03/2023, 11/03/2023, 04/21/2016, Additional history exists Covid-19 Vaccine (2 - 2024-2 6 season) 2025 08/22/2020 Colon Cancer Screening-DNA Stool 08/07/2025 08/07/19 23, 02/02/2019 Fall Risk Assessment 02/11/2026 02/11/2025, 12/22/2022, 11/10/2022, Additional history exists Well Visit 65+ 02/11/2026 02/11/2025, 08/01/2022, 02/06/2020 Depression Screening 03/25/2026 03/25/2025, 02/11/2025, 02/04/2025, [...] STOOL DNA COLOGUARD Routine 08/07/2022 9:10 PM ELECTRONIC COMMERCE SPECIALIST Encounter for colorectal cancer screening DEXA AXIAL SKELETON BONE DENSITY 1 OR MORE SITES Schedule Routine, Read Routine (OP Routine) 07/06/2022 2:30 PM ELECTRONIC COMMERCE SPECIALIST Encounter for osteoporosis screening in asymptomatic postmenopausal [...] PM Ht(Inch): 62 Wt(Lb): 159 BSA: 1.73 Cook Pie: Akosua Amezquita RDCS Order Provider: YOAN GUALLPA Heart Rate: 71 BMI: 29.08 BP: 128 / 72 Ref Provider: YOAN GUALLPA PROCEDURES: Echocardiographic Report: ([id number]) Transthoracic complete echo, 2D, spectral and tissue [...] PM Ht(Inch): 62 Wt(Lb): 159 BSA: 1.73 Cook Pie: Akosua Amezquita RDCS Order Provider: YOAN GUALLPA Heart Rate: 71 BMI: 29.08 BP: 128 / 72 Ref Provider: YOAN GUALLPA PROCEDURES: Echocardiographic Report: ([id number]) Transthoracic complete echo, 2D,spectral and tissue Doppler, [...] [ 16.00 - 34.00 ] MV Decel Usty657.00 msec RVDd 2D 2.70 cm [ 2.00 [...] Meade MD 04/12/2025 4:13:54 PM CDT [ADDENDUM] us Yoan Guallpa MD CV ECHO PROCEDURES Edited [...] was last reviewed 2021. Testing performed by: [address] [address] Blood 02/25/2025 10:3 7 AM CDT 02/25/2025 11:43 AM CDT us Tiffanie Agustin COMPUTER TECHNOLOGY INSTRUCTOR LAB BLOOD ORDERABLES Final Resul t [facility] [address] [facility] Department [place] [address] * Differential, auto (02/25/2025 10:37 AM CDT) Neutrophil abs 3.94 1.50 - 6.50 K/cumm Comment:Testing performed by : [address] [address] Imm gran abs 0.04 0.00 - 0.10 K/cumm [facility] RO[facility] Comment:Testing performed by : [address] [address] Lymphocyte abs 1.67 0.80 - 3.30 K/cumm [facility] Comment:Testing performed by : [address] [address] Monocyte abs 0.54 0.20 - 0.80 K/cumm [facility] Comment:Testing performed by : [address], [place]., [address] Eosinophil abs 0.19 0.00 - 0.50 K/cumm [facility] Comment:Testing performed by : [address], [place]., [address] Basophil abs 0.08 0.00 - 0.10 K/cumm [facility] Comment:Testing performed by : [address] [address] Neutrophil pct 61.0 % [facility] Comment: Interpretive Data Percent cell count reference ranges are not reported, since discordance with absolute values may lead to misinterpretation of CBC data. Current Interpretive Data was last revised on 2017. Testing performed by: [address] [address] Imm gran pct 0.6 % [facility] Comment: Interpretive Data Percent cell count reference ranges are not reported, since discordance with absolute values may lead to misinterpretation of CBC data. Current Interpretive Data was last revised on 2017. Testing performed by: [address] [address] Lymphocyte pct 25.9 % [facility] Comment: Interpretive Data Percent cell count reference ranges are not reported, since discordance with absolute values may lead to misinterpretation of CBC data. Current Interpretive Data was last revised on 2017. Testing performed by: [address] [address] Monocyte pct 8.4 % [facility] Comment: Interpretive Data Percent cell count reference ranges are not reported, since discordance with absolute values may lead to misinterpretation of CBC data. Current Interpretive Data was last revised on 2017. Testing performed by: [address] [address] Eosinophil pct 2.9 % [facility] Comment: Interpretive Data Percent cell count reference ranges are not reported, since discordance with absolute values may lead to misinterpretation of CBC data. Current Interpretive Data was last revised on 2017. Testing performed by: [address] [address] Basophil pct 1.2 % [facility] Comment: Interpretive Data Percent cell count reference ranges are not reported, since discordance with absolute values may lead to misinterpretation of CBC data. Current Interpretive Data was last revised on 2017. Testing performed by: [address] [address] Blood 02/25/2025 10:3 7 AM CDT 02/25/2025 11:44 AM CDT Tiffanie Agustin NP LAB BLOOD ORDERABLES Final Resul t Performing Organization Address City/[facility] Co de Phone Number [address] [place] [address] * Thyroid Function [place] (02/25/2025 10:37 AM CDT) TSH 1.53 0.30 - 4.20 mcIUnit/mL Comment:Testing performed by : [address] [address] Blood 02/25/2025 10:3 7 AM CDT 02/25/2025 11:43 AM CDT us Tiffanie Agustin NP LAB BLOOD ORDERABLES Final Resul t [place] [id number] [facility] [place] [address] * CBC with auto differential (02/25/2025 10:37 AM CDT) WBC 6.46 3.80 - 9.90 K/cumm Comment:Testing performed by : [address] [address] Hgb 14.3 11.9 - 15.5 g/dL ERICKSON Comment:Testing performed by : [address], [address] Hct 43.2 35.6 - 45.5 % [facility] Comment:Testing performed by : [address], [address] Plt 393 150 - 400 K/cumm [facility] Comment:Testing performed by : [address], [address] MPV 10.1 9.1 - 12.3 fL [facility] Comment:Testing performed by : [address], [address] RBC 4.92 3.90 - 5.20 M/cumm ER[facility] Comment:Testing performed by : [address], [address] MCV 87.8 81.3 - 96.4 fL [facility] Comment:Testing performed by : [address], [address] MCH 29.1 27.1 - 33.3 pg [facility] Comment:Testing performed by : [address], [address] MCHC 33.1 32.3 - 35.7 g/dL [facility] Comment:Testing performed by : [address], [address] RDW CV 13.2 11.1 - 14.9 % ERICKSON Comment:Testing performed by : [address], [address] RDW SD 42.7 35.7 - 48.1 fL [facility] Comment:Testing performed by : [address], [address] NRBC abs 0.00 0.00 - 0.01 K/cumm [facility] Comment:Testing performed by : [address], [address] Blood 02/25/2025 10:3 7 AM CDT 02/25/2025 11:44 AM CDT us Tiffanie Agustin NP LAB BLOOD ORDERABLES Final Resul t Performing Organization Address City/[facility] Co de Phone Number ERICKSON [address] [place] [address] * Hepatitis C antibody Blood (02/25/2025 10:37 [...] ORDER TOYIN Final Result Performing Organization Address [facility] Co de Phone Number MEETA[address] [place] [address] * Hepatitis B core antibody, total Blood (02/25/2025 10:37 AM CDT) Hep B core IgG/IgM Nonreactive Nonreactive Comment:Testing performed by : [facility], [address] [facility], [place]., [address] Blood 02/25/2025 10:3 7 AM CDT 02/25/2025 3:27 PM CDT Tiffanie Agustin NP LAB MICROBIOLOGY - GENERAL ORDER TOYIN Final Result Performing Organization Address City/[facility]/ZIP Co de Phone Number MEETA[address] [place] [address] * Vitamin D 25 hydroxy (02/25/2025 10:37 AM CDT) Pathologist [facility] Vitamin D 25-OH 39.0 30.0 - 80.0 ng/mL Blood 02/25/2025 10:3 7 AM CDT 02/25/2025 2:31 PM CDT Tiffanie Agustin NP LAB BLOOD ORDERABLES Final Resul t Performing Organization Address [facility] Co de Phone Number MEETA[address] [place] [address] * Hepatitis B surface antibody (immune status) Blood (02/25/2025 10:37 AM CDT) [facility] HBsAb (immune status) Nonreactive Comment: Interpretive Data [...] ORDER TOYIN Final Result Performing Organization Address [facility] Co de Phone Number [address] [place] [employer] [address] * Hepatitis B Surface Antigen Blood (02/25/2025 10:37 AM CDT) [facility] HepBsAg Nonreactive Nonreactive Blood 02/25/2025 10:3 7 AM CDT 02/25/2025 2:31 PM CDT Tiffanie Agustin NP LAB MICROBIOLOGY - GENERAL ORDER TOYIN Final Result Performing Organization Address [facility] de Phone Number ERICKSON [address] [facility] Department [place] [address] * (ABNORMAL) Hemoglobin A1c (02/25/2025 10:37 AM CDT) Hgb A1C 5.9(H) 4.0 - 5.6 % Comment:Testing performed by : [address] [address] Estimated Average Glucose 123 mg/dL ERICKSON Comment: The ADA recommends reporting an estimated Average Glucose (eAG) with all Hemoglobin A1c results using the equation derived from a study of 507 normal and diabetic adults. Minority populations were underrepresented and children were not included. (Diabetes Care 31:3256-1962, 2008). The eAG is not equivalent to a fasting glucose. Testing performed by: [address] [address] Blood 02/25/2025 10:3 7 AM CDT 02/25/2025 11:44 AM CDT us Tiffanie Agustin NP LAB BLOOD ORDERABLES Final Resul t MEETA[address] Department [place] [address] * (ABNORMAL) Lipid panel (02/25/2025 10:37 AM [...] last revised on 2018. Testing performed by: [address] [address] Triglycerides 162(H) <=149 mg/dL ERICKSON Comment: Interpretive [...] last revised on 2018. Testing performed by: [address] [address] HDL 74 >=40 mg/dL ERICKSON Comment: Interpretive [...] last revised on 2018. Testing performed by: [address] [address] LDL, calculated 104 <=129 mg/dL ERICKSON Comment: Interpretive Data Ages < or = 19 years Acceptable: <110 mg/dL Borderline high: 110-129 mg/dL High: >or= 130 mg/dL Ages > or = 20 years Optimal: <100 mg/dL Near optimal: 100-129 mg/dL Borderline high: 130-159 mg/dL High: >160 mg/dL Calculated using the Catherine LDL-C estimating equation. This equation was implemented on 2024. Prior to this date LDL-C was estimated using the Friedewald equation. Literature References: 1. Expert Panel on Integrated Guidelines for Cardiovascular Health and Risk Reduction in Children and Adolescents. Pediatrics 2011;128:S213 2. NCEP Expert Panel. Circulation 2004;110:227 3. Florin Gamez et al. PRADIP Cardiol. 2020 October 18;5(5):540-548. doi: 10.1001/jamacardio.2020.0013 Current Interpretive Data was last revised on 2024. Testing performed by: [address] [address] Non-HDL Cholesterol 132 mg/dL ERICK[facility] ROSE Comment: [...] last revised on 2018. Testing performed by: [address] [address] Chol/HDL ratio 3 ERICKSON Comment:Testing performed by : [address] [address] Blood 02/25/2025 10:3 7 AM CDT 02/25/2025 11:43 AM CDT Narrative [facility] - 02/25/2025 12:35 PM CDT Has the patient been fasting for 8 hours or more?->Yes us Tiffanie Agustin NP LAB BLOOD ORDERABLES Final Resul t [facility] [address] [facility] Department [place] [address] * (ABNORMAL) Comprehensive metabolic panel (02/25/2025 10:37 AM CDT) Sodium 143 135 - 145 mmol/L Comment:Testing performed by : [address] [address] Potassium, pl 4.5 3.3 - 4.9 mmol/L [facility] ROSE Comment:Testing performed by : [address], [place]., [address] Chloride 107 97 - 110 mmol/L ERICKSON Comment:Testing performed by : [address], [place]., [address] CO2 27 22 - 32 mmol/L ER[facility]SON Comment:Testing performed by : [address], [place]., [address] Anion gap 9 2 - 15 mmol/L ERICKSON Comment:Testing performed by : [address], [place]., [address] BUN 14 6 - 25 mg/dL ERICKSON Comment:Testing performed by : [address], [place]., [address] Creatinine 0.75 0.60 - 1.10 mg/dL ERICKSON Comment:Testing performed by : [address], [place]., [address] Glucose 102 70 - 199 mg/dL ERICKSON [...] was last revised 2022. Testing performed by: [address] [address] Calcium 10.4(H) 8.5 - 10.3 mg/dL ERICKSON Comment:Testing performed by : [address] [address] Bilirubin, total 0.3 0.1 - 1.2 mg/dL ER[facility]SON Comment:Testing performed by : [address] [address] Protein, pl 7.2 6.5 - 8.5 g/dL ERICKSON Comment:Testing performed by : [address] [address] Albumin 4.3 3.5 - 5.0 g/dL ER[facility]SON Comment:Testing performed by : [address] [address] Alk phos 102 40 - 130 Units/L [facility] Comment:Testing performed by : [address] [address] ALT 17 7 - 45 Units/L ERICKSON Comment:Testing performed by : [address] [address] AST 22 10 - 45 Units/L ER[facility]SON Comment:Testing performed by : [address] [address] Blood 02/25/2025 10:3 7 AM CDT 02/25/2025 11:43 AM CDT Narrative [facility] - 02/25/2025 12:35 PM CDT Has the patient fasted?->Yes Tiffanie Agustin NP LAB BLOOD ORDERABLES Final Resul t [place] [id number] [facility] Department [place] [address] * ECG 12 lead (02/21/2025 1:12 PM CDT) us Yoan Guallpa MD ECG ORDERABLES Final Result * Stool DNA - Cologuard (08/07/2022 9:10 PM ELECTRONIC COMMERCE SPECIALIST) [facility] Stool DNA - Cologuard Negative Negative [employer] (CLIA #:[id number]) Comment: NEGATIVE TEST RESULT. A negative Cologuard [...] (Heather Lord al, N Engl J Med 2014;370(14):7591-0743) The normal value (reference range) for this assay is negative. COLOGUARD RE-SCREENING RECOMMENDATION: Periodic colorectal cancer screening is an important part of preventive healthcare for asymptomatic individuals at average risk for colorectal cancer. Following a negative Cologuard result, the [employer] Society and U.S. Multi-Society Task Force screening guidelines recommend a Cologuard re-screening interval of 3 years. References: [employer] Guideline for Colorectal Cancer Screening: https://www.cancer.org/cancer/tsbln-dzjmem-kyyzka/huhwxmtmd-yvkhipeuj-hwrocgv/ac s-rec ommendations.html.; Joshua DK, Asim ANGELO, Chin HillK, Colorectal Cancer Screening: Recommendations for Physicians and Patients from the U.S. Multi-Society Task Force on Colorectal Cancer Screening , Am J Gastroenterology 2017; 112:1497-4033. TEST DESCRIPTION: Composite algorithmic analysis of stool [...] screened with both Cologuard and colonoscopy. (Heather Parker, N Engl J Med 2014;370(14):8580-8396.) Cologuard may produce a false negative or false positive result (no colorectal cancer or precancerous polyp present at colonoscopy follow up). A negative Cologuard test result does not guarantee the absence of CRC or advanced adenoma (pre-cancer). The current Cologuard screening interval is every 3 years. ([employer] Society and U.S. Multi-Society Task Force). Cologuard performance data in a 10,000 patient pivotal study using colonoscopy as the reference method can be accessed at the following location: www.Spartoo/results. Additional description of the Cologuard test process, warnings and precautions can be found at www.Clue AppogThe Smartphone Physicalrd.com. Stool 08/07/2022 9:10 PM ELECTRONIC COMMERCE SPECIALIST 08/10/2022 12:04 PM ELECTRONIC COMMERCE SPECIALIST Priscilla Marie NP LAB BODY FLUIDS AND STOOLS ORDERABLES Final Result [employer] (CLIA #:[id number]) [place] [address] * Dexa Axial Skeleton Bone Density 1 Or 2 Site (07/06/2022 2:30 PM ELECTRONIC COMMERCE SPECIALIST) Anatomical Region Laterality Modality Body N/A Other 07/06/2022 9:02 PM ELECTRONIC COMMERCE SPECIALIST Narrative 07/07/2022 8:13 AM ELECTRONIC COMMERCE SPECIALIST EXAM DESCRIPTION: DEXA AXIAL SKELETON BONE DENSITY 1 OR MORE SITES REASON FOR STUDY: 67 y/o year old F with given history of screening. Postmenopausal Clinical Documentation Clerk/Model: [employer] (S/N [id number]) CLINICAL INFORMATION: Current height: 63 inches Maximum [...] Kenan Doran M.D. MF: DANIELLE Report ID: [id number] Reading Location: [id number] Procedure Note Kenan Doran MD - 07/07/2022 EXAM DESCRIPTION: DEXA AXIAL SKELETON BONE DENSITY 1 OR MORE SITES REASON FOR STUDY: 67 y/o year old F with given history ofscreening. Postmenopausal Clinical Documentation Clerk/Model: SurgeonKid[employer] SL (S/N [id number]) CLINICAL INFORMATION: Current height: 63 inches Maximum [...] Kenan Doran M.D. MF: DANIELLE Report ID: [id number] Reading Location: [place] [address] Priscilla Marie COMPUTER TECHNOLOGY INSTRUCTOR IMG DXA PROCEDURES Final Re sult * [...] Requesting: ERIC SIEGEL M.D. Requesting Requesting ID: [id number] Attending Attending ID: [id number] Completed Time: 11/13/2013 2:16 PM Dictated Time: [...] Requesting: ERIC SIEGEL M.D. Requesting Requesting ID: [id number] Attending Attending ID: [id number] Completed Time: 11/13/2013 2:16 PM Dictated Time: [...] Recently Relevant to Health Maintenance Insurance [place] [address] MEDICARE [facility] MEDICARE SUPPLEMENT Member Subscriber Plan / Payer (Ef fective 2024-Present) Name:NesbittJacquie Relation to Subscriber:Self Name:NesbittJacquie Payer ID:[id number] Group ID:[id number] Type:COMMERCIAL Address: [address] [place] [id number] Care Teams Recycling Assistant Relationship Specialty Start Date End Date Tiffanie Agustin NP [address] [place] [address] [phone] PCP - General Family Medicine 02/04/25
--- OUTSIDE RECORDS SUMMARY | 2025-04-16 18:01 | XMS_ITS | Encounter Summary ---
Author Organization [facility] Address [address] [place] [address] Care Team Providers Care Shirt Line Operator Name Role Phone Cristiane Parmar DO Primary Care Provider Giuliana vailable Encounter Details Date Type Department Care Team (Latest Contact Info) Description 01/25/2002 Outpatient Historical HIS [facility] JAMES Shukla Jr., [place] MD NO ADDRESS ON FILE BREAST DISORDERS NEC (Primary Dx) Social History Tobacco Use Types Packs/Day Years Used Date Smoking Tobacco: Never Assessed Comments Unknown Sex and Gender Information Value Date Recorded Sex Assigned at Not on file Legal Sex Female 3:19 AM FORENSIC PSYCHIATRIST Gender Identity Not on file Sexual Orientation Not on file documented as of this encounter Plan of Treatment Not on file documented as of this encounter Visit Diagnoses Diagnosis Other specified disorder of breast- Primary documented in this encounter Care Teams Shirt Line Operator Relationship Specialty Start Date End Date Cristiane Parmar DO PCP - General Family Practice 05/07/24 03/07/25 documented as of this encounter
--- OUTSIDE RECORDS SUMMARY | 2025-04-16 18:01 | XMS_ITS | Patient Health Record ---
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
--- OUTSIDE RECORDS SUMMARY | 2025-04-16 18:01 | XMS_ITS | Clinical Summary ---
Author Organization [facility] Address [address] [place] [address] Care Team Providers Care Buckle Stapler Name Role Phone Unavailable Primary Care Provider [...] will call to schedule follow up with [employer], referral placed. Status post total knee replacement, left 023 Overview (10/18/2023): 07/13/2022 Last Assessment & Plan: Our recommendation at this time is gradually increase her activities as tolerated. We'll give her position and directed exercises. At her request, we'll see her back as needed. Allergies 06/08/2022 Overview (10/18/2023): Added automatically from request for surgery [id number] Primary osteoarthritis of right knee 06/08/2022 Overview (10/18/2023): Last Assessment & Plan: Scheduled for surgery with Dr. Magaña 07/13/22. Added automatically from request for surgery [id number] Last Assessment & Plan: We discussed the [...] 07/13/2021 Added automatically from request for surgery [id number] Bilateral primary osteoarthritis of knee 021 Overview [...] on file Legal Sex Female 3:19 AM RELIGIOUS EDUCATION DIRECTOR Gender Identity Not on file Sexual Orientation Not on file Last Filed Vital Signs Vital Sign Reading Time Taken Comments Blood Pressure 118/66 05/07/2024 2:44 PM RELIGIOUS EDUCATION DIRECTOR Pulse 84 05/07/2024 2:44 PM RELIGIOUS EDUCATION DIRECTOR Temperature 36.9 C (98.4 F) 05/07/2024 2:44 PM RELIGIOUS EDUCATION DIRECTOR Respiratory Rate 16 06/16/2023 9:30 AM RELIGIOUS EDUCATION DIRECTOR Oxygen Saturation 97% 05/07/2024 2:44 PM RELIGIOUS EDUCATION DIRECTOR Inhaled Oxygen Concentration - - Weight 68 kg (150 lb) 05/07/2024 2:44 PM RELIGIOUS EDUCATION DIRECTOR Height 160 cm (5' 3) 05/07/2024 2:44 PM RELIGIOUS EDUCATION DIRECTOR Body Mass Index 26.57 05/07/2024 2:44 PM RELIGIOUS EDUCATION DIRECTOR Plan of Treatment Health Maintenance Due Date Last Done Comments Pre-Diabetes and Diabetes Screening 1954 FIT-DNA Q 3 years 1999 FIT/FOBT Q 1 year 1999 Flex Sig/CT Colonography Q 5 years 1999 ZOSTER VACCINE (1 of 2) 2004 PNEUMOCOCCAL VACCINE 50+ YEA RS (2 of 2 - PCV20 or PCV21) 07/13/2020 07/13/2019 Traditional Medicare (ACO) A nnual Wellness Visit 06/12/2021 06/11/2020, 11/02/2017 DTAP/TDAP/TD VACCINES (2 - T d or Tdap) 03/29/2022 03/29/2012 BREAST CANCER SCREENING 11/02/2024 11/03/19 24, 11/03/2023, [...] ASSESSMENT: BI-RADS 1 - Negative DICTATION LOCATION: [facility] 11/04/2023 10:04 AM CDT BILATERAL SCREENING DIGITAL [...] ASSESSMENT: BI-RADS 1 - Negative DICTATION LOCATION: [facility] us Gómez Shukla Jr., MD MAMMO ORDERABLES Final R esult * XR DEXA BONE DENSITY AXIAL 1 OR MORE SITES (11/14/2013) Anatomical Region Laterality Modality Other us Abstract Provider DIAGNOSTIC IMAGING ORDERABLES Final Result from Last 3 Months or Most Recently Relevant to Health Maintenance Insurance MEDICARE PART A AND B [facility] SUPP
--- OUTSIDE RECORDS SUMMARY | 2025-04-16 18:01 | XMS_ITS | Encounter Summary ---
Author Organization [facility] Address [address] [place] [address] Care Team Providers Care Fabrication Lead Name Role Phone Tiffanie Agustin NP Primary Care Provider [phone] Encounter Details Date Type Department Care Team ([facility] st Contact Info) Description 02/25/2025 Results Follow-Up [facility] Family Medicine [address] [address] Tiffanie Agustin COMPENSATION AND BENEFITS ADVISOR [address] [address] Hemoglobin A1c, Vitamin D 25 hydroxy, Thyroid Function [place], Additional followed-up results: 9 Social History Tobacco [...] often do you attend chur ch or jain services? More than 4 times per year 12/17/2022 Do you belong to any clubs o r organizations such as adventist groups, unions, fraternal or athletic groups, or [...] place to sleep or slept in a nursing home (including now)? No 12/17/2022 PHQ-9 Answer Date [...] on file Legal Sex Female 2:03 PM AUTOMOBILE LEASING SUPERVISOR Gender Identity Female 11/27/2022 8:14 AM CDT Sexual Orientation Straight 07/06/2022 12 :07 AM AUTOMOBILE LEASING SUPERVISOR documented as of this encounter Plan of Treatment Not on file documented as of this encounter Visit Diagnoses Not on filedocumented in this encounter Care Teams Fabrication Lead Relationship Specialty Start Date End Date Tiffanie Agustin, COMPENSATION AND BENEFITS ADVISOR [address] [place] [address] PCP - General Family Medicine 02/04/25 documented as of this encounter
--- OUTSIDE RECORDS SUMMARY | 2025-04-16 18:01 | XMS_ITS | Data Portability ---
Author Organization [employer], [facility] Address [address] [address] Assessment No assessment recorded. Plan of Treatment [...] Surgeries None recorded. Imaging XR, knee 2020 [email or web address] Not available 15:19:00 Medication Orders cephalexin 500 mg capsule 2020 [email or web address] Not available 16:33:47 Patient TargetsNo targets recorded. Patient InstructionsNo instructions recorded. Reason for Referral None Reported. Results Created Date Observation Date Name Description Value Unit Range Abnormal Flag Note LastModifiedBy Organization Detail LastModifiedTime 04/22/20 21 04/25/2021 CBC (INCL UDES DIFF/ PLT) white blood cell count 7.1 thous and/u L 3.8-10 .8 normal Not Available [address], [address], 04/25/2021 12:35:37 04/22/20 21 04/25/2021 CBC (INCL UDES DIFF/ PLT) red blood cell count 4.76 gio on/uL 3.80-5 .10 normal Not Available [address], [address], 04/25/2021 12:35:37 04/22/20 21 04/25/2021 CBC (INCL UDES DIFF/ PLT) hemoglobin 13.5 g/dL 11.7-1 5.5 normal Not Available [address], [address], 04/25/2021 12:35:37 04/22/20 21 04/25/2021 CBC (INCL UDES DIFF/ PLT) hematocrit 40.6 % 35.0-4 5.0 normal Not Available [address], [address], 04/25/2021 12:35:37 04/22/20 21 04/25/2021 CBC (INCL UDES DIFF/ PLT) MCV 85.3 fL 80.0-1 00.0 normal Not Available [address], [address], 04/25/2021 12:35:37 04/22/20 21 04/25/2021 CBC (INCL UDES DIFF/ PLT) MCH 28.4 pg 27.0-3 3.0 normal Not Available [address], [address], 04/25/2021 12:35:37 04/22/20 21 04/25/2021 CBC (INCL UDES DIFF/ PLT) MCHC 33.3 g/dL 32.0-3 6.0 normal Not Available [address], [address], 04/25/2021 12:35:37 04/22/20 21 04/25/2021 CBC (INCL UDES DIFF/ PLT) RDW 12.7 % 11.0-1 5.0 normal Not Available [address], [address], 04/25/2021 12:35:37 04/22/2004/25/2021 CBC (INCL UDES DIFF/ PLT) platelet count 373 thous and/u L 140-40 0 normal Not Available [address], [address], 04/25/2021 12:35:37 04/22/20 21 04/25/2021 CBC (INCL UDES DIFF/ PLT) MPV 10.5 fL 7.5-12 .5 normal Not Available [address], [address], 04/25/2021 12:35:37 04/22/20 21 04/25/2021 CBC (INCL UDES DIFF/ PLT) absolute neutrophils 4033 cells /uL 1500-7 800 normal Not Available [address], [address], 04/25/2021 12:35:37 04/22/20 21 04/25/2021 CBC (INCL UDES DIFF/ PLT) absolute lymphocytes 2201 cells /uL 850-39 00 normal Not Available [address], [address], 04/25/2021 12:35:37 04/22/20 21 04/25/2021 CBC (INCL UDES DIFF/ PLT) absolute monocytes 561 cells /uL 200-95 0 normal Not Available [address], [address], 04/25/2021 12:35:37 04/22/20 21 04/25/2021 CBC (INCL UDES DIFF/ PLT) absolute eosinophils 234 cells /uL 15-500 normal Not Available [address], [address], 04/25/2021 12:35:37 04/22/20 21 04/25/2021 CBC (INCL UDES DIFF/ PLT) absolute basophils 71 cells /uL 0-200 normal Not Available [address], [address], 04/25/2021 12:35:37 04/22/20 21 04/25/2021 CBC (INCL UDES DIFF/ PLT) neutrophils 56.8 % normal Not Available [address], [address], 04/25/2021 12:35:37 04/22/20 21 04/25/2021 CBC (INCL UDES DIFF/ PLT) lymphocytes 31.0 % normal Not Available [address], [address], 04/25/2021 12:35:37 04/22/20 21 04/25/2021 CBC (INCL UDES DIFF/ PLT) monocytes 7.9 % normal Not Available [address], [address], 04/25/2021 12:35:37 04/22/20 21 04/25/2021 CBC (INCL UDES DIFF/ PLT) eosinophils 3.3 % normal Not Available [facility] [address], [address], 04/25/2021 12:35:37 04/22/20 21 04/25/2021 CBC (INCL UDES DIFF/ PLT) basophils 1.0 % normal Not Available [address], [address], 04/25/2021 12:35:37 04/22/20 21 04/25/2021 HS CRP hs CRP 3.2 mg/L high Refer ence Range Optim al <1.0 Sugey EVANS et al. Endoc r Pract .2017 ;23(S uppl 2):1- 87. For ages >17 Years : hs-CR P mg/L Risk Accor ding to AHA/C DC Guide lines <1.0 Lower relat bryant cardi ovasc ular risk. 1.0-3 .0 [place] ge relat bryant cardi ovasc ular risk. [...] tion and infla mmati on. Not Available [facility] [address], [place], [address], 04/25/2021 12:35:37 04/22/2004/25/2021 VITAM IN D,25- [place],TO [...] /MS is recom tyrese d: order code 35515 (michelle ents >2yrs ). See Note 1 Note 1 For addit ional infor christoph solis e refer to http: //miroslava land.Que stDia gnost ics.c om/fa q/FAQ 199 (This link is being provi ded for infor matio nal/ educa angelica l purpo ses only. ) Not Available [place] [address] [place], [address], 04/25/2021 12:35:38 04/22/20 21 04/25/2021 HEMOG LOBIN A1C hemoglobin A1C 5.8 %_of_ total _HGB <5.7 high Not Available [place] [address] [facility] [facility] [place], [address], 04/25/2021 12:35:38 04/22/2004/25/2021 TESTO STERO NE, FREE (DIAL YSIS) AND TOTAL ,MS testosterone , total, MS 13 NG/dL 2-45 For addit ional christoph long refer to https ://ed [facility] on.qu randolphTrinean. com/f aq/FA Q165 (This link is being provi ded for infor matio nal/e ducat ional purpo ses only. ) (Note ) This test was devel oped and its mathieu tical perfo rmanc e rhonda cteri stics have been deter mined by [employer]. It has not been clear ed or appro luz by the FDA. This assay has been valid ated pursu ant to the CLIA regul ation s and is used for clini phoebe purpo ses. Not Available [facility] [place] [address] [address] [place], [address], 04/25/2021 12:35:39 04/22/20 21 04/25/2021 TESTO STERO NE, FREE (DIAL YSIS) AND TOTAL ,MS testosterone , free 2.2 pg/mL 0.1-6. 4 (Note ) This test was devel oped and its mathieu tical perfo rmanc e rhonda cteri stics have been deter mined by [employer]. It has not been clear ed or appro luz by the FDA. This assay has been valid ated pursu ant to the CLIA regul ation s and is used for clini phoebe purpo ses. MDF med fusio n [address] [facility] [address] [place] [address] [phone] Jani henao MD Not Available [facility] [address] [address], [place], [address], 04/25/2021 12:35:39 Result Notes None recorded. Problems No Known Problems Procedures Surgical History Date Name Laterality Status Provider Name and Address Organization Details Recorded Time Generic Procedure completed CAMILO ZARAGOZA [address], [place], [address], [facility] [employer] [facility], [employer] 04/20/2021 16:07:11 3 delivery completed Moses Thurman [facility] [employer] [facility], [employer] 04/20/2021 15:37:40 0 delivery completed Moses Thurman [facility] [employer] [facility], [facility] 04/20/2021 15:37:20 Imaging Results None recorded. Procedure Notes None recorded. Medical Equipment None Reported. Allergies Allergen ID Allergen Name Allergen Category Reaction Reaction Severity Criticality Documentation Date Start Date Code Code System Note Provider Name and Address Organization Details Recorded Time 7[address]32 E-Mycin medicatio n itching severe Not available 04/20/202118723 8 RxNorm Moses Thurman [facility] [employer] [facility], [employer] 15:07:17 Medications Name Sig Start Date Stop [...] Updated DateTime 04/20/2021 160.02 cm 29.9 kg/m2 29717.11 g 66 /min 134/80 mm[Hg] Moses Thurman [employer] 04/20/2021 15:36:11 Social History Question Answer Notes LastModified by Organizat ion Details LastModified Time Tobacco Smoking Status Never Smoker Moses snider [employer] 04/20/2021 15:08:00 Do You Have An Advance Directive? No [email or web address] Information not available 04/20/2021 How Much Tobacco Do You Chew? None [email or web address] Information not available 04/20/2021 Are You Deaf Or Do You Have Serious Difficulty Hearing? No Information not available 04/20/2021 How Many Children Do You Have? 2 [email or web address] Information not available 04/20/2021 What Is Your Relationship Status? [email or web address] Information not available 04/20/2021 Do You Use Your Seat Belt Or Car Seat Routinely? Yes Information not available 04/20/2021 Are You Sexually Active? No Information not available 04/20/2021 Do You Have Smoke And Carbon Monoxide Detectors In Your Home? Yes Information not available 04/20/2021 Do You Use Sunscreen Routinely? No [email or web address] Information not available 04/20/2021 How Many Years Have You Smoked Tobacco? 0 [email or web address] Information not available 04/20/2021 Sex: Unknown Functional Status Question Answer Note LastModified by Organization D etails LastModified Time Are you currently employed? No [email or web address] Information not available 04/20/2021 Mental Status Question Answer Note LastModified by Organization D etails LastModified Time Do you feel stressed (tense, restless, nervous, or anxious, or unable to sleep at night)? [email or web address] Information not available 04/20/2021 Family History Relationship Description Onset Age of this Age Resolved Age Notes LastModified by Organization Details LastModified Time Father Diabetes mellitus 80 89 Not available 2020 15:07:23 Father Dementia 88 89 [email or web address] Not availabl e 04/20/2021 15:07:23 Medical History Condition Response Heart Problems Y Arthritis Y Fibromyalgia Y Hypertension Y High Cholesterol Y Gynecological HistoryNo gynecological history recorded. Obstetrics History GPAL:G 0 P 0 0 0 0 Past Encounters Encounter ID Performer Location Encounter Start Date Encounter Closed Date Diagnosis/Indication Diagnosis SNOMED-CT Code Diagnosis ICD10 Code Diagnosis IMO Codes Diagnosis Note [id number] CAMILO ZARAGOZA [facility] [address] [place] [address] 04/20/2021 14:46:12 04/21/2021 14:46:38 Bilateral osteoarthritis of knees 9561257727 26130 M17.0 At today's office visit the patient's [...] [facility] the [facility] emerita. The risk and [...] M94.9 E55.9 Z13.228 Z13.1 Antibiotic prophylaxis indicated [id number] Z78.9 Health Concerns Section Related Observation LastModified by Organization Detai ls LastModified Time None Recorded Concern Status LastModified by Organization Details LastModified Time None Recorded Advance Directives Directive N: Payers Insurance Date Sequence Insurance Name Policy Number Policy Haas Covered Member ID Haas Member ID Guarantor Name 06/13/2022 1 [place] Jacquie Nesbitt [id number] 1 Jacquie Samueltcher Notes Date Note Type [...] regards to pain and discomfort. CAMILO ZARAGOZA [address], [place], [address], [facility], [facility] 04/20/2021 16:08:04 OBGyn Episode No OBEpisode recorded.
--- OUTSIDE RECORDS SUMMARY | 2025-04-16 18:01 | XMS_ITS | Clinical Summary ---
Author Organization [facility] Address [address] [place] [address] Care Team Providers Care Traffic Observer Name Role Phone Radha Vanegas MD Primary Care Provider [phone] Allergies Active Allergy Reactions Criticality Noted Date [...] will call to schedule follow up with Professor Of Visual Arts, referral placed. Status post total knee replacement, [...] needed. Assessment & Plan (08/23/2022 12:33 PM HIGH SCHOOL COMPUTER SCIENCE TEACHER): The patient will follow up in 3 months. She will finish up physical therapy 08/24/2022. Assessment & Plan (07/26/2022 12:35 PM HIGH SCHOOL COMPUTER SCIENCE TEACHER): The patient is encouraged to use Vit E oil, cocoa butter, and/or scar cream to assist in healing and mobility. Patient will continue pain medication as needed. She will start going to outpatient physical therapy next week. The patient will follow-up in 4 weeks with an XR. BMI 26.0-26.9,adult 06/11/2022 Assessment & Plan (06/11/2022 8:38 PM HIGH SCHOOL COMPUTER SCIENCE TEACHER): We discussed the adverse effects of weight on osteoarthritis. For every 1 pound loss, 4 to 6 pounds of stress is relieved from the knee, slightly more at the ankle and slightly less at the hip. Primary osteoarthritis of right knee 06/08/2022 Overview (09/18/2024): Added automatically from request for surgery [id number] Last Assessment & Plan: Scheduled for surgery with Dr. Magaña 07/13/22. Added automatically from request for surgery [id number] Last Assessment & Plan: We discussed the [...] 07/13/2021 Added automatically from request for surgery [id number] Assessment & Plan (05/27/2024 10:29 AM HIGH SCHOOL COMPUTER SCIENCE TEACHER): We discussed the risks, benefits, and alternatives. [...] (06/08/2022): Added automatically from request for surgery [id number] Assessment & Plan (06/11/2022 8:37 PM HIGH SCHOOL COMPUTER SCIENCE TEACHER): We discussed the risks, benefits and alternatives. [...] (06/08/2022): Added automatically from request for surgery [id number] Allergies 06/08/2022 Overview (09/18/2024): Added automatically from request for surgery [id number] Added automatically from request for surgery [id number] Bilateral primary osteoarthritis of knee 021 Overview [...] (06/08/2022): Added automatically from request for surgery [id number] Temporomandibular joint disorder 01/21/2012 Mixed hyperlipidemia 09/21/2011 [...] Description 01/17/2025 4:00 PM CDT Office Visit [facility] [place] [address] [place] [address] Jase Arroyo NP Postop Followup (Right TKR [...] materials from doctor or pharmacy Never 05/23/2024 [facility] Utilities Answer Date Recorded In the past [...] any time in the past 12 m [facility], were you homeless or living in a halfway (including now)? No 09/20/2024 Comments No Sex and Gender Information Value Date Recorded Sex Assigned at Female 07/03/2024 1:23 PM HIGH SCHOOL COMPUTER SCIENCE TEACHER Legal Sex Female 5:45 PM CDT Gender [...] 07/06/2022, 11/14/2013, Additional history exists PHQ-2 (Physician [place]) Completed 10/03/2024 Hepatitis A Vaccines Aged Out [...] Recommended Domains Addressed Status Status Reason/Outcome Date/Time [facility] Financial Assistance Financial Resource Strain Recommended 01/06/2025 8:[address] [facility] Financial Assistance Financial Resource Strain Recommended 01/06/2025 8:25 PM CDT [facility] Financial Assistance Financial Resource Strain Recommended 01/06/2025 8:25 PM CDT Social [facility] Office Financial Assistance Financial Resource Strain Recommended 01/06/2025 8:25 PM CDT Social Security Office Financial Assistance Financial Resource Strain Recommended 01/06/2025 8:25 PM CDT from Last 12 Months Medical Devices Implanted Type Area Territory Account Representative Device Identifier Shelf Expiration Date Model / Serial / Lot Cement Full Dose - [id number] Implanted:Qty : 1 on 07/13/2022 by Esteban Magaña DO at [facility] Cement Implant [employer] [id number] 11/17/2024 6191-1-0 / [id number] Component Femoral 3 Knee Left Cruciate Retain Cement Triathlon Sterile Latex Free - [id number] Implanted:Qty : 1 on 07/13/2022 by Esteban Magaña DO at [facility] Knee Components [employer] [id number] 04/26/2026 5510-F-3 / / [id number] Plate Dexter Tibal Base Size 3 - [id number] Implanted:Qty : 1 on 07/13/2022 by Esteban Magaña DO at [facility] Knee Components [employer]OM[employer] [id number] 03/07/2027 5520-B-3 00 / / [id number] Baseplate Tibial Triathlon 3 Knee Tritanium - [id number] Implanted:Qty : 1 on 09/18/2024 by Esteban Magaña DO at [facility] Knee Components Right: Knee [employer] [id number] 07/01/2029 5536-B-3 00 / / [id number] Component Femoral 4 Knee Right Cruciate Retain Bead Triathlon Pa Sterile Latex Free - [id number] Implanted:Qty : 1 on 09/18/2024 by Esteban Magaña DO at [facility] Knee Components Right: Knee [employer] [id number] 07/20/2029 5517-F-4 02 / / [id number] Triathlon Tritanium Asymmetric Patella Implanted:Qty : 1 on 09/18/2024 by Esteban Magaña DO at [facility] Knee Components Right: Knee [employer] [id number] 05/01/2029 5552-L-3 20 / / [id number] Triathlon X3 Tibial Bearing Insert -Cs Implanted:Qty : 1 on 09/18/2024 by Esteban Magaña DO at [facility] Knee Components Right: Knee [employer] [id number] 04/23/2029 5531-G-3 09-E / / [id number] Pump Pain On-Q 400ml - [id number] Implanted:Qty : 1 on 07/13/2022 by Esteban Magaña DO at [facility] Pump [employer] 10/18/2024 CB004 / / [id number] Triathlon Asymmetric X3 Patella Implanted:Qty : 1 on 07/13/2022 by Esteban Magaña DO at [facility] [id number] 03/13/2027 551-G-29 9-E / / [id number] Aurora Tibial Bearing Insert Implanted:Qty : 1 on 07/13/2022 by Esteban Magaña DO at [facility] [employer] [id number] 02/02/2027 5531-G-3 09-E / / [id number] Explanted Type Area Territory Account Representative Device Identifier Shelf Expiration Date Model / Serial / Lot Pin Aurora Bone Gato 140 X 4 - [id number] Explanted:Qty: 1 on 07/13/2022 by Esteban Magaña DO at [facility] Pin [employer] [id number] / / Pin Aurora Bone Gato 110 X 4 - [id number] Explanted:Qty: 1 on 07/13/2022 by Esteban Magaña DO at [facility] Pin [employer] [id number] / / Pin Aurora Bone Gato 140 X 4 - [id number] Explanted:Qty: 1 on 09/18/2024 by Esteban Magaña DO at [facility] Pin Right: Knee [employer] [id number] 06/29/2029 042057- / / [id number] Pin Aurora Bone Gato 110 X 4 - [id number] Explanted:Qty: 1 on 09/18/2024 by Esteban Magaña DO at [facility] Pin Right: Knee [employer] [id number] 02/02/2029 [id number] / / [id number] Pump Pain On-Q 400ml - [id number] Explanted:Qty: 1 on 09/18/2024 by Esteban Magaña DO at [facility] Pump [employer] CB004 / / Description:Not an implant Additional Health Concerns Infection Onset Date Last Indicated 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 09/17/2024 09/17/2024 Insurance MEDICARE [facility] Advance Directives Documents on File Type Date Recorded Patient Manager Data Warehouse Expl anation Power of Product Scientist * Full Code (Latest Code Status on File) Date Activated Date Inactivated Comments 09/18/2024 12:28 PM 09/20/2024 10:13 PM * DNR Date Activated Date Inactivated Comments 05/08/2024 12:10 PM 07/03/2024 1:28 PM * Full Code Date Activated Date Inactivated Comments 07/18/2022 5:16 PM 12/08/2022 11:09 AM * Full Code Date Activated Date Inactivated Comments 07/13/2022 1:01 PM 07/16/2022 5:12 PM Care Teams Traffic Observer Relationship Specialty Start Date End Date Radha Vanegas MD [address] [place] [address] PCP - General FAMILY PRACTICE 11/01/23
--- OUTSIDE RECORDS SUMMARY | 2025-04-16 18:01 | XMS_ITS | Clinical Summary ---
Author Organization [facility] Address [address] [place] [address] Care Team Providers Care Latin American Studies Professor Name Role Phone Radha Vanegas MD Primary Care Provider [phone] Source Comments [facility],non-owned Affiliates and Associated Physician Practices is amultiple site organization consisting of ambulatory clinics and hospital sitesin [place], [place], [place] and [place]. This disclosure is being madepursuant to the Care Everywhere program and may not contain all information available regarding this patient. Last updated 18.[facility] Allergies Active Allergy Reactions Criticality Noted Date [...] (Flonase) 50 MCG/ACT nasal sprayIndication s:Allergic Rhinitis [place] 2 (two) sprays into each nostril once [...] Subjective visual disturbance 08/03/2018 Visual problems 08/01/2018 Social History Tobacco Use Types Packs/Day Years [...] Date Recorded PHQ2 TOTAL SCORE 1 12/09/2022 [facility] Occupat ional Health - Occupational Stress [...] the money to buy more. Never true 06/23/20 23 Within the past 12 months, t he [...] slept in a mcc (including now)? No 12/10/2022 Education Answer Date Recorded What is the highest level of school you have completed or the highest degree you have received? Some college, no degree 12/11/2022 Comments No Sex and Gender Information Value Date Recorded Sex Assigned at Not on file Legal Sex Female 6:02 AM COGNOS REPORT DEVELOPER Gender Identity Not on file Sexual Orientation [...] CT COLONOGRAPHY - COLON CA SCREENING 1955 FIT - COLON CA SCREENING 1955 FLEX SIG - COLON CA SCREENING 1955 MEDICARE AWV 12 MONTHS 1955 HEPATITIS C SCREENING 04/29/1972 DTAP/TDAP/TD VACCINES (1 - Tdap) 1973 PNEUMOCOCCAL VACCINE 50+ (1 of 1 - PCV) 2004 ZOSTER VACCINE (1 of 2) 2004 LIPID TESTING 08/02/2023 08/02/2018 DEPRESSION SCREENING 06/20/2024 COVID-19 VACCINE (2 - season) 2025 08/22/2020 INFLUENZA VACCINE (#1) 2025 4, 03/20/2021, 03/31/2020, Additional history exists COLOGUARD (AGES 45-75) - COLON CA SCREENING 08/07/2025 08/07/2022 Colorectal Cancer Screening 08/07/2025 MAMMOGRAM 11/02/2025 11/03/2023, 10/18, 04/21/2016, Additional history exists SCREENING FOR DIABETES 11/12/2026 , 08/03/2018, 08/02/2018, Additional history exists Respiratory Syncytial Virus (RSV) Vaccine Pt: or [...] Procedure Name Priority Date/Time Associated Diagnosis Comments COMPREHENSIVE METABOLIC PANEL STAT 11/13/2023 3:01 PM CDT LIPID PROFILE AM Draw 08/02/2018 5:33 AM COGNOS REPORT DEVELOPER MAMMO BILAT SCREENING Routine 04/08/2008 11:54 AM CDT Other Screening Mammogram from Last 3 Months or Most Recently Relevant to Health Maintenance Results * (ABNORMAL) COMPREHENSIVE METABOLIC PANEL (11/13/2023 3:01 PM T) [facility] Signature Glucose 99 70 - 105 mg/dL 11/13/2023 3:[address] [facility] Sodium 141 136 - 145 mmol/L 11/13/2023 3:[address] [facility] Potassium 4.1 3.5 - 5.1 mmol/L 11/13/2023 3:[address] [facility] Chloride 110(H) 98 - 107 mmol/L 11/13/2023 3:[address] [facility] CO2 22 22 - 29 mmol/L 11/13/2023 3:[address] [facility] Calcium 9.7 8.4 - 10.4 mg/dL 11/13/2023 3:[address] [facility] Anion Gap 9 6 - 16 mmol/L 11/13/2023 3:[address] [facility] BUN 20 7 - 26 mg/dL 11/13/2023 3:[address] [facility] Creatinine 0.85 0.57 - 1.11 mg/dL 11/13/2023 3:[address] [facility] Alkaline Phosphatase 67 40 - 150 U/L 11/13/2023 3:[address] [facility] ALT 21 0 - 55 U/L 11/13/2023 3:[address] [facility] AST 19 5 - 34 U/L 11/13/2023 3:[address] [facility] Protein Total 7.2 6.4 - 8.3 gm/dL 11/13/2023 3:[address] [facility] Albumin 3.9 3.4 - 5.0 gm/dL 11/13/2023 3:[address] [facility] Bilirubin Total 0.4 0.2 - 1.2 mg/dL 11/13/2023 3:[address] [facility] eGFR by CKD-EPI 74(L) >=90 mL/min/1.7 3 m2 11/13/2023 3:[address] [facility] Blood BLOOD SPECIMEN / Unknown Venipuncture / Unknown 11/13/2023 3:01 PM CDT 11/13/2023 3:06 PM CDT us Jane Cardoza MD LAB - CHEMISTRY ORDERABLES Fin al Result Performing Organization Address City/[facility]/ZIP Co de Phone Number [facility] [address] [place] [address] * LIPID PROFILE (08/02/2018 5:33 AM COGNOS REPORT DEVELOPER) [facility] Cholesterol 184 <200 mg/dL 08/02/2018 6:29 AM COGNOS REPORT DEVELOPER [facility] Triglycerides 115 <150 mg/dL 08/02/2018 6:29 AM [facility] HDL Cholesterol 54 >40 mg/dL 9 6:29 AM [facility] LDL Calculated 107 <130 mg/dL 08/02/2018 6:29 AM [facility] VLDL Calculated 23 <=30 mg/dL 9 6:29 AM [facility] Chol HDL Ratio 3.4 <4.5 08/02/2018 6:29 AM [facility] LDL/HDL Ratio 2.0 <5.0 08/02/2018 6:29 AM [facility] Blood BLOOD SPECIMEN / Unknown Lab Venipuncture / Unknown 08/02/2018 5:33 AM COGNOS REPORT DEVELOPER 08/02/2018 6:02 AM COGNOS REPORT DEVELOPER us Michael Antonio DO LAB - CHEMISTRY ORDERABLES Ghada l Result Performing Organization Address City/[facility]/ZIP Co de Phone Number [facility] [address] [place] [address] * MAMMO SCREENING DIGITAL IMAGE BILAT (04/08/2008 11:54 AM CDT) Anatomical Region Laterality Modality Breast Bilateral Mammography 04/08/2008 1:35 PM CDT Narrative 04/09/2008 7:50 AM CDT Bilateral Screening Digital Mammograms with CAD Indication: Screening. Views: Standard CC and MLO views bilaterally. These images were interpreted with the aid of R2 CAD (version 8.3). Technologist: EILEEN RT. Tissue density: Average. Findings: Focal area [...] if suspicious findings are present clinically. An Citizen Of [place] [employer] Certified Facility. Procedure Note Ankit Slaughter MD / Dru Phillips (Clerical Edit - 04/09/2008 Bilateral Screening Digital Mammograms with CAD Indication: Screening. Views: Standard CC and MLO views bilaterally. These images were interpreted with the aid of [employer]. CAD (version 8.3). Technologist: RT EILEEN. Tissue [...] if suspicious findings are present clinically. An Citizen Of [place] [employer] Certified Facility. Krystian Centeno MD MAMMO ORDERABLES Edited Resu lt - Final from Last 3 Months or Most Recently Relevant to Health Maintenance [place] [id number] MEDICARE [facility] [address] [place] [id number] [facility] MEDICARE Advance Directives * Full Code (Latest Code Status on File) Date Activated Date Inactivated Comments 12/11/2022 12:27 AM 12/14/2022 2:39 PM * Full Code Date Activated Date Inactivated Comments 08/01/2018 9:35 PM 08/03/2018 4:29 PM Care Teams Latin American Studies Professor Relationship Specialty Start Date End Date Radha Vanegas MD PCP - General Family Medicine 11/13/23
[2025-04-16 18:03] VITALS: BP 155/73; PULSE 80; RESP 16; TEMP 36.9; O2SAT 97
[2025-04-16 19:20] VITALS: BP 122/72; PULSE 72; RESP 18; O2SAT 98
[2025-04-16 19:37] LABS: Add Urine Microscopic? YES; Appearance Urine Clear (Clear); Glucose Urine UA 2+ mg/dL (Negative); Leukocyte Esterase Ur Trace LEU/UL (Negative); Nitrate Urine Negative (Negative); Non Pathogenic Casts 0-2; Specific Grav Ur 1.016 (1.001-1.035)
--- OUTSIDE RECORDS SUMMARY | 2025-04-16 19:48 | XMS_ITS | Encounter Summary ---
Author Organization [facility] Address [address] [address] Care Team Providers Care Optometry Doctor Name Role Phone Keon Butterfield MD Primary Care Provider [phone] Radha Vanegas MD Primary Care Provider [phone] Encounter Details Date Type Department Care Team (Late st Contact Info) Description 10/17/2018 Lab Requisition [facility] [address] [facility] [place] [address] Raeann Carlisle, [address] [facility] [address] [place] [address] Social History Tobacco Use Types Packs/Day Years Used Date Smoking Tobacco: Former Cigarettes Smokeless Tobacco: Never Comments:1 month in her 30s Alcohol Use Standard Drinks/Week Comments No 0 (1 standard drink = 0.6 oz pur e alcohol) Comments No Sex and Gender Information Value Date Recorded Sex Assigned at Not on file Legal Sex Female 6:02 AM LATHE MECHANIC Gender Identity Not on file Sexual Orientation Not on file documented as of this encounter Plan of Treatment Not on file documented as of this encounter Procedures Procedure Name Priority Date/Time Associated Diagnosis Comments DERMATOPATHOLOGY Routine 10/16/2018 12:0 0 AM CDT documented in this encounter Results * DERMATOPATHOLOGY (10/16/2018 12:00 AM CDT) Case Report Dermatopathology Report Case: [id number] Authorizing Provider: Raeann Carlisle DO Collected: 10/16/2018 [...] The specimen consists of a shave measuring [id number]. Jar 0. 12:31 PM CDT DERMATOPATHOLOGY LABORATORY [...] characteristic determined by the Dermatopathology Laboratory at [facility], directed by Dr. Mary Carmen Benson. These tests need not be, and therefore are not, approved by the [place] Food and Drug Administration. The tests are used for clinical purposes. Billing Codes Specimen Charges Stain Charges 05914 1 9 12:31 PM CDT DERMATOPATHOLOGY LABORATORY Embedded Images 9 12:31 PM CDT DERMATOPATHOLOGY LABORATORY Pathology/Cytolog y TISSUE SPECIMEN FROM SKIN / Unknown 10/16/2018 10/17/2018 10:51 AM CDT Raeann Carlisle DO LAB - PATHOLOGY/CYTOLOGY ORDERABLES Final Result DERMATOPATHOLOGY LABORATORY [facility] - Department of Dermatology [address] [place] [address], 5th Floor Lab [address] [phone] documented in this encounter Visit Diagnoses Not on filedocumented in this encounter Care Teams Optometry Doctor Relationship Specialty Start Date End Date Keon Butterfield MD [address] [place] [address] PCP - General 08/01/18 11/12/23 Radha Vanegas MD PCP - General Family Medicine 11/13/23 documented as of this encounter
--- OUTSIDE RECORDS SUMMARY | 2025-04-16 19:48 | XMS_ITS | Clinical Summary ---
Author Organization [facility] Address [address] [place] [address] Care Team Providers Care Inventory Auditor Name Role Phone Radha Vanegas MD Primary Care Provider [phone] Allergies Active Allergy Reactions Criticality Noted Date [...] will call to schedule follow up with [facility], referral placed. Status post total knee replacement, [...] needed. Assessment & Plan (08/23/2022 12:33 PM JEWEL HOLE DRILLER): The patient will follow up in 3 months. She will finish up physical therapy 08/24/2022. Assessment & Plan (07/26/2022 12:35 PM JEWEL HOLE DRILLER): The patient is encouraged to use Vit E oil, cocoa butter, and/or scar cream to assist in healing and mobility. Patient will continue pain medication as needed. She will start going to outpatient physical therapy next week. The patient will follow-up in 4 weeks with an XR. BMI 26.0-26.9,adult 06/11/2022 Assessment & Plan (06/11/2022 8:38 PM JEWEL HOLE DRILLER): We discussed the adverse effects of weight on osteoarthritis. For every 1 pound loss, 4 to 6 pounds of stress is relieved from the knee, slightly more at the ankle and slightly less at the hip. Primary osteoarthritis of right knee 06/08/2022 Overview (09/18/2024): Added automatically from request for surgery [id number] Last Assessment & Plan: Scheduled for surgery with Dr. aMgaña 07/13/22. Added automatically from request for surgery [id number] Last Assessment & Plan: We discussed the [...] 07/13/2021 Added automatically from request for surgery [id number] Assessment & Plan (05/27/2024 10:29 AM JEWEL HOLE DRILLER): We discussed the risks, benefits, and alternatives. [...] (06/08/2022): Added automatically from request for surgery [id number] Assessment & Plan (06/11/2022 8:37 PM JEWEL HOLE DRILLER): We discussed the risks, benefits and alternatives. [...] (06/08/2022): Added automatically from request for surgery [id number] Allergies 06/08/2022 Overview (09/18/2024): Added automatically from request for surgery [id number] Added automatically from request for surgery [id number] Bilateral primary osteoarthritis of knee 021 Overview [...] (06/08/2022): Added automatically from request for surgery [id number] Temporomandibular joint disorder 01/21/2012 Mixed hyperlipidemia 09/21/2011 [...] Description 01/17/2025 4:00 PM CDT Office Visit [facility] [address] [place] [address] Jase Arroyo NP Postop Followup (Right TKR [...] materials from doctor or pharmacy Never 05/23/2024 [facility] Utilities Answer Date Recorded In the past [...] Sex Assigned at Female 07/03/2024 1:23 PM JEWEL HOLE DRILLER Legal Sex Female 5:45 PM CDT Gender [...] 07/06/2022, 11/14/2013, Additional history exists PHQ-2 (Physician [place]) Completed 10/03/2024 Hepatitis A Vaccines Aged Out [...] Recommended Domains Addressed Status Status Reason/Outcome Date/Time [facility] Financial Assistance Financial Resource Strain Recommended 01/06/2025 8:25 PM CDT [facility] Financial Assistance Financial Resource Strain Recommended 01/06/2025 8:25 PM CDT [facility] Financial Assistance Financial Resource Strain Recommended 01/06/2025 8:25 PM CDT Social [facility] Financial Assistance Financial Resource Strain Recommended 01/06/2025 8:25 PM CDT Social Security Office Financial Assistance Financial Resource Strain Recommended 01/06/2025 8:25 PM CDT from Last 12 Months Medical Devices Implanted Type Area Gimp Buttonhole Machine Operator Device Identifier Shelf Expiration Date Model / Serial / Lot Cement Full Dose - [id number] Implanted:Qty : 1 on 07/13/2022 by Esteban Magaña DO at [facility] Cement Implant [employer] [id number] 11/17/2024 6191-1-0 / [id number] Component Femoral 3 Knee Left Cruciate Retain Cement Triathlon Sterile Latex Free - [id number] Implanted:Qty : 1 on 07/13/2022 by Esteban Magaña DO at [facility] Knee Components [employer] [id number] 04/26/2026 5510-F-3 / / [id number] Plate Dexter Tibal Base Size 3 - [id number] Implanted:Qty : 1 on 07/13/2022 by Esteban Magaña DO at [facility] Knee Components [employer] [id number] 03/07/2027 5520-B-3 00 / / [id number] Baseplate Tibial Triathlon 3 Knee Tritanium - [id number] Implanted:Qty : 1 on 09/18/2024 by Esteban Magaña DO at [facility] Knee Components Right: Knee [employer] [id number] 07/01/2029 5536-B-3 00 / / [id number] Component Femoral 4 Knee Right Cruciate Retain Bead Triathlon Pa Sterile Latex Free - [id number] Implanted:Qty : 1 on 09/18/2024 by Esteban Magaña DO at [facility] Knee Components Right: Knee [employer] [id number] 07/20/2029 5517-F-4 02 / / [id number] Triathlon Tritanium Asymmetric Patella Implanted:Qty : 1 on 09/18/2024 by Esteban Magaña DO at [facility] Knee Components Right: Knee [employer] [id number] 05/01/2029 5552-L-3 20 / / [id number] Triathlon X3 Tibial Bearing Insert -Cs Implanted:Qty : 1 on 09/18/2024 by Esteban Magaña DO at [facility] Knee Components Right: Knee [employer] [id number] 04/23/2029 5531-G-3 09-E / / [id number] Pump Pain On-Q 400ml - [id number] Implanted:Qty : 1 on 07/13/2022 by Esteban Magaña DO at [facility] Pump [employer] 10/18/2024 CB004 / / [id number] Triathlon Asymmetric X3 Patella Implanted:Qty : 1 on 07/13/2022 by Esteban Magaña DO at [facility] [id number] 03/13/2027 551-G-29 9-E / / [id number] [place] Tibial Bearing Insert Implanted:Qty : 1 on 07/13/2022 by Esteban Magaña DO at [facility] [employer] [id number] 02/02/2027 5531-G-3 09-E / / [id number] Explanted Type Area Gimp Buttonhole Machine Operator Device Identifier Shelf Expiration Date Model / Serial / Lot Pin [place] Bone Gato 140 X 4 - [id number] Explanted:Qty: 1 on 07/13/2022 by Esteban Magaña DO at [facility] Pin [employer] 311014- / / Pin [place] Bone Gato 110 X 4 - [id number] Explanted:Qty: 1 on 07/13/2022 by Esteban Magaña DO at [facility] Pin [employer]OMI [id number] / / Pin [place] Bone Gato 140 X 4 - [id number] Explanted:Qty: 1 on 09/18/2024 by Esteban Magaña DO at [facility] Pin Right: Knee [employer] [id number] 06/29/2029 841925- / / [id number] Pin [place] Bone Gato 110 X 4 - [id number] Explanted:Qty: 1 on 09/18/2024 by Esteban Magaña DO at [facility] Pin Right: Knee [employer] [id number] 02/02/2029 [id number] / / [id number] Pump Pain On-Q 400ml - [id number] Explanted:Qty: 1 on 09/18/2024 by Esteban Magaña DO at [facility] Pump [employer] CB004 / / Description:Not an implant Additional Health Concerns Infection Onset Date Last Indicated 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 09/17/2024 09/17/2024 Insurance MEDICARE [facility] Advance Directives Documents on File Type Date Recorded 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 Expl anation Power of Recordings Librarian * Full Code (Latest Code Status on File) Date Activated Date Inactivated Comments 09/18/2024 12:28 PM 09/20/2024 10:13 PM * DNR Date Activated Date Inactivated Comments 05/08/2024 12:10 PM 07/03/2024 1:28 PM * Full Code Date Activated Date Inactivated Comments 07/18/2022 5:16 PM 12/08/2022 11:09 AM * Full Code Date Activated Date Inactivated Comments 07/13/2022 1:01 PM 07/16/2022 5:12 PM Care Teams Inventory Auditor Relationship Specialty Start Date End Date Radha Vanegas MD [address] [place] [address] PCP - General FAMILY PRACTICE 11/01/23
--- OUTSIDE RECORDS SUMMARY | 2025-04-16 19:48 | XMS_ITS | Encounter Summary ---
Author Organization [facility] Address [address] [place] [address] Care Team Providers Care High Pressure Kettle Operator Name Role Phone Radha Vanegas MD Primary Care Provider [phone] Encounter Details Date Type Department Care Team (Late st Contact Info) Description 09/03/2024 Sticky Message [facility] Patient Accounts [address] [place] [address] [facility] Payment Social History Tobacco Use [...] Sex Assigned at Female 07/03/2024 1:23 PM ACCOUNTING MACHINE SERVICER Legal Sex Female 5:45 PM CDT Gender Identity Female 10/03/2024 9:02 AM CDT Sexual Orientation Straight 10/03/2024 9: 02 AM CDT documented as of this encounter Functional Status * RETIRED Are you deaf or do you have serious difficulty hearing Answer Date of Assessment Author Status No 07/13/2022 2:00 PM ACCOUNTING MACHINE SERVICER Activ e * RETIRED Are you blind or do you have serious difficulty seeing, even when wearing glasses? Answer Date of Assessment Author Status No 07/13/2022 2:00 PM ACCOUNTING MACHINE SERVICER Activ e * Do you have serious [...] Total Score: 1 05/25/20 24 2:28 PM ACCOUNTING MACHINE SERVICER documented as of this encounter Care Teams High Pressure Kettle Operator Relationship Specialty Start Date End Date Radha Vanegas MD [address] [place] [address] PCP - General FAMILY PRACTICE 11/01/23 documented as of this encounter
--- OUTSIDE RECORDS SUMMARY | 2025-04-16 19:48 | XMS_ITS | Encounter Summary ---
Author Organization [facility] Address [address] [place] [address] Care Team Providers Care Aba Tutor Name Role Phone Cristiane Parmar DO Primary Care Provider Giuliana vailable Encounter Details Date Type Department Care Team (Late st Contact Info) Description 05/18/2006 Outpatient Historical [facility] Family Medicine [address] [address] Kip Kraus DO [address] [place] [id number] Social History Tobacco Use Types Packs/Day Years Used Date Smoking Tobacco: Never Assessed Comments Unknown Sex and Gender Information Value Date Recorded Sex Assigned at Not on file Legal Sex Female 3:19 AM CAD DESIGNER Gender Identity Not on file Sexual Orientation Not on file documented as of this encounter Plan of Treatment Not on file documented as of this encounter Visit Diagnoses Not on filedocumented in this encounter Care Teams Aba Tutor Relationship Specialty Start Date End Date Cristiane Parmar DO PCP - General Family Practice 05/07/24 03/07/25 documented as of this encounter
--- OUTSIDE RECORDS SUMMARY | 2025-04-16 19:48 | XMS_ITS | Clinical Summary ---
Author Organization [email or web address] Address [address] [place] [address] Care Team Providers Care Finance Broker Name Role Phone Radha Vanegas MD Primary Care Provider [phone] Source Comments [email or web address],non-owned Affiliates and Associated Physician Practices is amultiple site organization consisting of ambulatory clinics and hospital sitesin [place], [place], [place] and [place]. This disclosure is being madepursuant to the Care Everywhere program and may not contain all information available regarding this patient. Last updated 18.[email or web address] Allergies Active Allergy Reactions Criticality Noted Date [...] (Flonase) 50 MCG/ACT nasal sprayIndication s:Allergic Rhinitis [place] 2 (two) sprays into each nostril once [...] Date Recorded PHQ2 TOTAL SCORE 1 12/09/2022 [facility] [place] of Occupat ional Health - Occupational Stress [...] place to sleep or slept in a intermediate (including now)? No 12/10/2022 Education Answer Date Recorded What is the highest level of school you have completed or the highest degree you have received? Some college, no degree 12/11/2022 Comments No Sex and Gender Information Value Date Recorded Sex Assigned at Not on file Legal Sex Female 6:02 AM FORMING ROLL OPERATOR Gender Identity Not on file Sexual [...] LIPID PROFILE AM Draw 08/02/2018 5:33 AM FORMING ROLL OPERATOR MAMMO BILAT SCREENING Routine 04/08/2008 11:54 AM CDT Other Screening Mammogram from Last 3 Months or Most Recently Relevant to Health Maintenance Results * (ABNORMAL) COMPREHENSIVE METABOLIC PANEL (11/13/2023 3:01 PM T) [facility] Signature Glucose 99 70 - 105 mg/dL 11/13/2023 3:40 PM [facility] Sodium 141 136 - 145 mmol/L 11/13/2023 3:40 PM [facility] Potassium 4.1 3.5 - 5.1 mmol/L 11/13/2023 3:40 PM [facility] Chloride 110(H) 98 - 107 mmol/L 11/13/2023 3:40 PM [facility] CO2 22 22 - 29 mmol/L 11/13/2023 3:40 PM [facility] Calcium 9.7 8.4 - 10.4 mg/dL 11/13/2023 3:40 PM [facility] Anion Gap 9 6 - 16 mmol/L 11/13/2023 3:40 PM [facility] BUN 20 7 - 26 mg/dL 11/13/2023 3:40 PM [facility] Creatinine 0.85 0.57 - 1.11 mg/dL 11/13/2023 3:40 PM [facility] Alkaline Phosphatase 67 40 - 150 U/L 11/13/2023 3:40 PM [facility] ALT 21 0 - 55 U/L 11/13/2023 3:40 PM [facility] AST 19 5 - 34 U/L 11/13/2023 3:40 PM [facility] Protein Total 7.2 6.4 - 8.3 gm/dL 11/13/2023 3:40 PM [facility] Albumin 3.9 3.4 - 5.0 gm/dL 11/13/2023 3:40 PM [facility] Bilirubin Total 0.4 0.2 - 1.2 mg/dL 11/13/2023 3:40 PM [facility] eGFR by CKD-EPI 74(L) >=90 mL/min/1.7 3 m2 11/13/2023 3:40 PM [facility] Blood BLOOD SPECIMEN / Unknown Venipuncture / Unknown 11/13/2023 3:01 PM CDT 11/13/2023 3:06 PM CDT us Jane Cardoza MD LAB - CHEMISTRY ORDERABLES Fin al Result Performing Organization Address City/[facility]/ZIP Co de Phone Number [facility] [address] [place] [address] * LIPID PROFILE (08/02/2018 5:33 AM FORMING ROLL OPERATOR) [facility] Cholesterol 184 <200 mg/dL 08/02/2018 6:29 AM FORMING ROLL OPERATOR [facility] Triglycerides 115 <150 mg/dL 08/02/2018 6:29 AM [facility] HDL Cholesterol 54 >40 mg/dL 9 6:29 AM [facility] LDL Calculated 107 <130 mg/dL 08/02/2018 6:29 AM [facility] VLDL Calculated 23 <=30 mg/dL 9 6:29 AM [facility] Chol HDL Ratio 3.4 <4.5 08/02/2018 6:29 AM [facility] LDL/HDL Ratio 2.0 <5.0 08/02/2018 6:29 AM [facility] Blood BLOOD SPECIMEN / Unknown Lab Venipuncture / Unknown 08/02/2018 5:33 AM FORMING ROLL OPERATOR 08/02/2018 6:02 AM FORMING ROLL OPERATOR us Michael Antonio DO LAB - CHEMISTRY ORDERABLES Ghada l Result Performing Organization Address City/[facility]/ZIP Co de Phone Number [facility] [address] [place] [address] * MAMMO SCREENING DIGITAL IMAGE BILAT (04/08/2008 [...] if suspicious findings are present clinically. An [employer] Certified Facility. Procedure Note Ankit Slaughter MD / Dru Phillips (Clerical Edit - 04/09/2008 Bilateral Screening Digital Mammograms with CAD Indication: Screening. Views: Standard CC and MLO views bilaterally. These images were interpreted with the aid of SumUp CAD (version 8.3). Technologist: RT EILEEN. Tissue [...] if suspicious findings are present clinically. An [employer] Certified Facility. Krystian Centeno MD MAMMO ORDERABLES Edited Resu lt - Final from Last 3 Months or Most Recently Relevant to Health Maintenance [place] [address] [place] [id number] [facility] [place] [address] [facility] MEDICARE Advance Directives * Full Code (Latest Code Status on File) Date Activated Date Inactivated Comments 12/11/2022 12:27 AM 12/14/2022 2:39 PM * Full Code Date Activated Date Inactivated Comments 08/01/2018 9:35 PM 08/03/2018 4:29 PM Care Teams Finance Broker Relationship Specialty Start Date End Date Radha Vanegas MD PCP - General Family Medicine 11/13/23
--- OUTSIDE RECORDS SUMMARY | 2025-04-16 19:48 | XMS_ITS | Clinical Summary ---
Author Organization [facility] [address] [facility] Address [address] [place] [address] Care Team Providers Care Grinding Mill Operator Name Role Phone Tiffanie Agustin NP Primary Care Provider [phone] Allergies Active Allergy Reactions Criticality Noted Date [...] BY MOUTH IN THE MORNING Active mv,with Gl-dfir-GX-lut-17 9herb 13.5-200-250 mg-mcg-mcg tablet Take by mouth [...] mini-mental exam, scored 30/30 Offered referral to [facility], not interested at this [...] week Assessment & Plan (07/12/2018 2:41 PM ASSOCIATE FINANCIAL ANALYST): Diet= low-carb Limit white bread, rice, pasta, potatoes, juice, energy drinks, coffee creamers with sugar, sugar sodas, candy, cake, cookies, ice cream. Be more careful with starchy vegetables like corn, carrots, and fruits. Stay away from processed foods, fast foods, fried foods. The cornerstone of this diet is lean grilled meats, green salads or cooked greens, fat-free milk, cottage cheese, nuts like kxqwqzu-hblohem-pbzalil, protein bars with 10-15 g of protein [...] will call to schedule follow up with Combining Machine Operator, referral placed. Encounter for preoperative e xamination for general surgical procedure 07/01/2022 02/04/2025 Assessment & Plan (07/01/2022 11:53 AM ASSOCIATE FINANCIAL ANALYST): Reviewed past medication history. No sleep apnea, cardiac disease, or smoking history. EKG completed today, NSR. Cleared for upcoming surgery. Bilateral primary osteoarthritis of knee 09/23/2020 02/04/2025 Assessment & Plan (01/25/2022 12:59 PM CDT): Continues meloxicam use. Following with ortho for injections as needed. Visual disturbance 10/13/2018 Scaly patch rash 07/12/2018 02/04/2025 Assessment & Plan (07/13/2018 11:20 AM ASSOCIATE FINANCIAL ANALYST): Sporadic small scaly dry red patches on [...] Department Care Team Description 04/16/2025 Results Follow-Up [facility] Cardiology [address] [facility] [address] [place] [address] Dominique Ventura NP Transthoracic Echo (TTE) Complete W Doppler/CF 04/15/2025 2:15 PM CDT Office Visit [facility] Primary Care at [address] [place] [address] Tiffanie Agustin NP Left nephrolithiasis (Primary Dx); Encounter for surveillance of abnormal nevi 04/12/2025 12:57 PM CDT - 04/12/2025 11:59 PM CDT Hospital Encounter [facility] Cardiac Testing [address] [place] [address] Palpitations Discharge Disposition: Discharge to home or self care 03/28/2025 Telephone [facility] at [address] [place] [address] Tiffanie Agustin NP 03/25/2025 7:45 AM CDT Office Visit [facility] at [address] [address] Tiffanie Agustin NP Short-term memory loss (Primary Dx); Fibromyalgia; Moderate episode of recurrent major depressive disorder (HCC); Mixed hyperlipidemia; Prediabetes; Not immune to hepatitis B virus; Need for vaccination 03/18/2025 1:00 PM CDT Office Visit [facility] Obstetrical Gynecology [address] [facility] [address] [place] [address] Go George MD Menopausal symptoms (Primary Dx) 02/25/2025 10:20 AM CDT Lab [facility] [address] [place] [id number] Prediabetes; Low bone mass; Screening for thyroid disorder; Mixed hyperlipidemia; CKD (chronic kidney disease) stage 2, GFR 60-89 ml/min; Screening, anemia, deficiency, iron; Need for hepatitis C screening test; Need for hepatitis B screening test 02/25/2025 Results Follow-Up [facility] Family Medicine [address] [phone] Tiffanie Agustin NP Hemoglobin A1c, Vitamin D 25 hydroxy, Thyroid Function Hoffmeister, Additional followed-up results: 9 02/21/2025 1:30 PM CDT Office Visit [facility] Cardiology [address] [facility] [address] [place] [address] Yoan Guallpa MD Hyperlipidemia, unspecified hyperlipidemia type (Primary Dx); Palpitations 02/11/2025 8:15 AM CDT Office Visit [facility] Primary Care at [address] [place] [phone] Tiffanie Agustin NP Encounter for Medicare annual [...] Atherosclerosis of aorta; Hot flashes 02/06/2025 Telephone [facility] Primary Care at [address] [place] [address] Tiffanie Agustin NP Medical Question/Miscellaneous 02/04/2025 11:30 AM CDT Office Visit [facility] Primary Care at [address] [address] Tiffanie Agustin NP Encounter to [...] 1982 KNEE SURGERY 07/13/2022 Left done at [facility] TOTAL KNEE ARTHROPLASTY 09/18/2024 Right HYSTERECTOMY [...] How often do you attend chur or oriental orthodox services? More than 4 times per year 12/17/2022 Do you belong to any clubs o r organizations such as congregational groups, unions, fraternal or athletic groups, or [...] place to sleep or slept in a chcf (including now)? No 12/17/2022 PHQ-9 Answer Date [...] on file Legal Sex Female 2:03 PM ASSOCIATE FINANCIAL ANALYST Gender Identity Female 11/27/2022 8:14 AM CDT Sexual Orientation Straight 07/06/2022 12 :07 AM ASSOCIATE FINANCIAL ANALYST Obstetrics History Para Term AB IAB SAB [...] STOOL DNA COLOGUARD Routine 08/07/2022 9:10 PM ASSOCIATE FINANCIAL ANALYST Encounter for colorectal cancer screening DEXA AXIAL SKELETON BONE DENSITY 1 OR MORE SITES Schedule Routine, Read Routine (OP Routine) 07/06/2022 2:30 PM ASSOCIATE FINANCIAL ANALYST Encounter for osteoporosis screening in asymptomatic postmenopausal [...] PM Ht(Inch): 62 Wt(Lb): 159 BSA: 1.73 Coal Briquette Machine Operator: Akosua Amezquita RDCS Order Provider: YOAN GUALLPA Heart Rate: 71 BMI: 29.08 BP: 128 / 72 Ref Provider: YOAN GUALLPA PROCEDURES: Echocardiographic Report: ([id number]) Transthoracic complete echo, 2D, spectral and tissue [...] PM Ht(Inch): 62 Wt(Lb): 159 BSA: 1.73 Coal Briquette Machine Operator: Akosua Amezquita RDCS Order Provider: YOAN GUALLPA Heart Rate: 71 BMI: 29.08 BP: 128 / 72 Ref Provider: YOAN GUALLPA PROCEDURES: Echocardiographic Report: ([id number]) Transthoracic complete echo, 2D,spectral and tissue Doppler, [...] [ 16.00 - 34.00 ] MV Decel Awpp791.00 msec RVDd 2D 2.70 cm [ 2.00 [...] was last reviewed 2021. Testing performed by: [address] [address] Blood 02/25/2025 10:3 7 AM CDT 02/25/2025 11:43 AM CDT us Tiffanie Agustin GUIDE ALPINE LAB BLOOD ORDERABLES Final Resul t ERICKSON ROSE [address] [facility] Department [place] [address] * Differential, auto (02/25/2025 10:37 AM CDT) Neutrophil abs 3.94 1.50 - 6.50 K/cumm Comment:Testing performed by : [address] [address] Imm gran abs 0.04 0.00 - 0.10 K/cumm ERICKSON ROSE Comment:Testing performed by : [address] [address] Lymphocyte abs 1.67 0.80 - 3.30 K/cumm [facility] Comment:Testing performed by : [address] [address] Monocyte abs 0.54 0.20 - 0.80 K/cumm [facility] Comment:Testing performed by : [address], [place]., [address] Eosinophil abs 0.19 0.00 - 0.50 K/cumm [facility] Comment:Testing performed by : [address], [place]., [address] Basophil abs 0.08 0.00 - 0.10 K/cumm [facility] Comment:Testing performed by : [address] [address] Neutrophil pct 61.0 % [facility] Comment: Interpretive Data Percent cell count reference ranges are not reported, since discordance with absolute values may lead to misinterpretation of CBC data. Current Interpretive Data was last revised on 2017. Testing performed by: [address] [address] Imm gran pct 0.6 % [facility] Comment: Interpretive Data Percent cell count reference ranges are not reported, since discordance with absolute values may lead to misinterpretation of CBC data. Current Interpretive Data was last revised on 2017. Testing performed by: [address] [address] Lymphocyte pct 25.9 % [facility] Comment: Interpretive Data Percent cell count reference ranges are not reported, since discordance with absolute values may lead to misinterpretation of CBC data. Current Interpretive Data was last revised on 2017. Testing performed by: [address] [address] Monocyte pct 8.4 % [facility] Comment: Interpretive Data Percent cell count reference ranges are not reported, since discordance with absolute values may lead to misinterpretation of CBC data. Current Interpretive Data was last revised on 2017. Testing performed by: [address] [address] Eosinophil pct 2.9 % [facility] Comment: Interpretive Data Percent cell count reference ranges are not reported, since discordance with absolute values may lead to misinterpretation of CBC data. Current Interpretive Data was last revised on 2017. Testing performed by: [address] [address] Basophil pct 1.2 % [facility] Comment: Interpretive Data Percent cell count reference ranges are not reported, since discordance with absolute values may lead to misinterpretation of CBC data. Current Interpretive Data was last revised on 2017. Testing performed by: [address] [address] Blood 02/25/2025 10:3 7 AM CDT 02/25/2025 11:44 AM CDT Tiffanie Agustin NP LAB BLOOD ORDERABLES Final Resul t Performing Organization Address City/[facility] Co de Phone Number [address] [employer] [address] * Thyroid Function Hoffmeister (02/25/2025 10:37 AM CDT) TSH 1.53 0.30 - 4.20 mcIUnit/mL Comment:Testing performed by : [address] [address] Blood 02/25/2025 10:3 7 AM CDT 02/25/2025 11:43 AM CDT us Tiffanie Agustin NP LAB BLOOD ORDERABLES Final Resul t [place] [id number] [facility] [place] [address] * CBC with auto differential (02/25/2025 10:37 AM CDT) WBC 6.46 3.80 - 9.90 K/cumm Comment:Testing performed by : [address] [address] Hgb 14.3 11.9 - 15.5 g/dL ERICKSON Comment:Testing performed by : [address], [address] Hct 43.2 35.6 - 45.5 % ERICKSON Comment:Testing performed by : [address], [address] Plt 393 150 - 400 K/cumm ERICKSON Comment:Testing performed by : [address], [address] MPV 10.1 9.1 - 12.3 fL ERICKSON Comment:Testing performed by : [address], [address] RBC 4.92 3.90 - 5.20 M/cumm ERICKSON Comment:Testing performed by : [address], [address] MCV 87.8 81.3 - 96.4 fL ERICKSON Comment:Testing performed by : [address], [address] MCH 29.1 27.1 - 33.3 pg ERICKSON Comment:Testing performed by : [address], [address] MCHC 33.1 32.3 - 35.7 g/dL ERICKSON Comment:Testing performed by : [address], [address] RDW CV 13.2 11.1 - 14.9 % ERICKSON Comment:Testing performed by : [address], [address] RDW SD 42.7 35.7 - 48.1 fL ERICKSON Comment:Testing performed by : [address], [address] NRBC abs 0.00 0.00 - 0.01 K/cumm ERICKSON Comment:Testing performed by : [address], [address] Blood 02/25/2025 10:3 7 AM CDT 02/25/2025 11:44 AM CDT us Tiffanie Agustin NP LAB BLOOD ORDERABLES Final Resul t Performing Organization Address City/[facility] Co de Phone Number ERICKSON [address] [employer] [address] * Hepatitis C antibody Blood (02/25/2025 10:37 [...] ORDER TOYIN Final Result Performing Organization Address [facility] Co de Phone Number MEETA[address] [place] [address] * Hepatitis B core antibody, total Blood (02/25/2025 10:37 AM CDT) Hep B core IgG/IgM Nonreactive Nonreactive Comment:Testing performed by : [facility], [address] [facility], [place]., [address] Blood 02/25/2025 10:3 7 AM CDT 02/25/2025 3:27 PM CDT Tiffanie Agustin NP LAB MICROBIOLOGY - GENERAL ORDER TOYIN Final Result Performing Organization Address City/[facility]/ZIP Co de Phone Number MEETA[address] [place] [place] [address] * Vitamin D 25 hydroxy (02/25/2025 10:37 AM CDT) Pathologist [facility] Vitamin D 25-OH 39.0 30.0 - 80.0 ng/mL Blood 02/25/2025 10:3 7 AM CDT 02/25/2025 2:31 PM CDT Tiffanie Agustin NP LAB BLOOD ORDERABLES Final Resul t Performing Organization Address [facility] Co de Phone Number MEETA[address] [place] [address] * Hepatitis B surface antibody (immune status) Blood (02/25/2025 10:37 AM CDT) [facility] HBsAb (immune status) Nonreactive Comment: Interpretive Data [...] ORDER TOYIN Final Result Performing Organization Address [facility] Co de Phone Number [address] [employer] [address] * Hepatitis B Surface Antigen Blood (02/25/2025 10:37 AM CDT) [facility] HepBsAg Nonreactive Nonreactive Blood 02/25/2025 10:3 7 AM CDT 02/25/2025 2:31 PM CDT Tiffanie Agustin NP LAB MICROBIOLOGY - GENERAL ORDER TOYIN Final Result Performing Organization Address [facility] de Phone Number ERICKSON [address] [facility] Department [place] [address] * (ABNORMAL) Hemoglobin A1c (02/25/2025 10:37 AM CDT) Hgb A1C 5.9(H) 4.0 - 5.6 % Comment:Testing performed by : [address] [address] Estimated Average Glucose 123 mg/dL ERICKSON Comment: The ADA recommends reporting an estimated Average Glucose (eAG) with all Hemoglobin A1c results using the equation derived from a study of 507 normal and diabetic adults. Minority populations were underrepresented and children were not included. (Diabetes Care 31:3654-2890, 2008). The eAG is not equivalent to a fasting glucose. Testing performed by: [address] [address] Blood 02/25/2025 10:3 7 AM CDT 02/25/2025 11:44 AM CDT us Tiffanie Agustin NP LAB BLOOD ORDERABLES Final Resul t MEETA[address] Department [place] [address] * (ABNORMAL) Lipid panel (02/25/2025 10:37 AM [...] last revised on 2018. Testing performed by: [address] [address] Triglycerides 162(H) <=149 mg/dL ERICKSON Comment: Interpretive [...] last revised on 2018. Testing performed by: [address] [address] HDL 74 >=40 mg/dL ERICKSON Comment: Interpretive [...] last revised on 2018. Testing performed by: [address] [address] LDL, calculated 104 <=129 mg/dL ERICKSON Comment: [...] last revised on 2024. Testing performed by: [address] [address] Non-HDL Cholesterol 132 mg/dL ERICKSON ROSE Comment: [...] last revised on 2018. Testing performed by: [address] [address] Chol/HDL ratio 3 ERICKSON Comment:Testing performed by : [address] [address] Blood 02/25/2025 10:3 7 AM CDT 02/25/2025 11:43 AM CDT Narrative ERICKSON - 02/25/2025 12:35 PM CDT Has the patient been fasting for 8 hours or more?->Yes us Tiffanie Agustin NP LAB BLOOD ORDERABLES Final Resul t [facility] [address] [facility] Department [place] [address] * (ABNORMAL) Comprehensive metabolic panel (02/25/2025 10:37 AM CDT) Sodium 143 135 - 145 mmol/L Comment:Testing performed by : [address] [address] Potassium, pl 4.5 3.3 - 4.9 mmol/L ERICKSON ROSE Comment:Testing performed by : [address], [place]., [address] Chloride 107 97 - 110 mmol/L ERICKSON Comment:Testing performed by : [address], [place]., [address] CO2 27 22 - 32 mmol/L ERICKSON Comment:Testing performed by : [address], [place]., [address] Anion gap 9 2 - 15 mmol/L ERICKSON Comment:Testing performed by : [address], [place]., [address] BUN 14 6 - 25 mg/dL ERICKSON Comment:Testing performed by : [address], [place]., [address] Creatinine 0.75 0.60 - 1.10 mg/dL ERICKSON Comment:Testing performed by : [address], [place]., [address] Glucose 102 70 - 199 mg/dL ERICKSON [...] was last revised 2022. Testing performed by: [address] [address] Calcium 10.4(H) 8.5 - 10.3 mg/dL ERICKSON Comment:Testing performed by : [address] [address] Bilirubin, total 0.3 0.1 - 1.2 mg/dL ERICKSON Comment:Testing performed by : [address] [address] Protein, pl 7.2 6.5 - 8.5 g/dL ERICKSON Comment:Testing performed by : [address] [address] Albumin 4.3 3.5 - 5.0 g/dL ERICKSON Comment:Testing performed by : [address] [address] Alk phos 102 40 - 130 Units/L [facility] Comment:Testing performed by : [address] [address] ALT 17 7 - 45 Units/L ERICKSON Comment:Testing performed by : [address] [address] AST 22 10 - 45 Units/L ERICKSON Comment:Testing performed by : [address] [address] Blood 02/25/2025 10:3 7 AM CDT 02/25/2025 11:43 AM CDT Narrative [facility] - 02/25/2025 12:35 PM CDT Has the patient fasted?->Yes Tiffanie Agustin NP LAB BLOOD ORDERABLES Final Resul t [place] [id number] [facility] Department [place] [address] * ECG 12 lead (02/21/2025 1:12 PM CDT) us Yoan Guallpa MD ECG ORDERABLES Final Result * Stool DNA - Cologuard (08/07/2022 9:10 PM ASSOCIATE FINANCIAL ANALYST) [facility] Stool DNA - Cologuard Negative Negative Remote Assistant (CLIA #:[id number]) Comment: NEGATIVE TEST RESULT. A negative Cologuard [...] (Heather Lord al, N Engl J Med 2014;370(14):4267-8839) The normal value (reference range) for this assay is negative. COLOGUARD RE-SCREENING RECOMMENDATION: Periodic colorectal cancer screening is an important part of preventive healthcare for asymptomatic individuals at average risk for colorectal cancer. Following a negative Cologuard result, the [place] Cancer Society and U.S. Multi-Society Task Force screening guidelines recommend a Cologuard re-screening interval of 3 years. References: [place] [employer] Guideline for Colorectal Cancer Screening: https://www.cancer.org/cancer/bfazw-ioqjbf-zwyhqw/cwoxdbrrz-eddrbcxpv-tlskimi/ac s-rec ommendations.html.; Joshua DK, Asim ANGELO, Chin HillK, Colorectal Cancer Screening: Recommendations for Physicians and Patients from the U.S. Multi-Society Task Force on Colorectal Cancer Screening , Am J Gastroenterology 2017; 112:0317-1061. TEST DESCRIPTION: Composite algorithmic analysis of stool [...] colonoscopy. (Heather Parker, N Engl J Med 2014;370(14):1068-0999.) Cologuard may produce a false negative or false positive result (no colorectal cancer or precancerous polyp present at colonoscopy follow up). A negative Cologuard test result does not guarantee the absence of CRC or advanced adenoma (pre-cancer). The current Cologuard screening interval is every 3 years. ([place] Cancer Society and U.S. Multi-Society Task Force). Cologuard performance data in a 10,000 patient pivotal study using colonoscopy as the reference method can be accessed at the following location: www.[employer]/results. Additional description of the Cologuard test process, warnings and precautions can be found at www.[employer].com. Stool 08/07/2022 9:10 PM ASSOCIATE FINANCIAL ANALYST 08/10/2022 12:04 PM ASSOCIATE FINANCIAL ANALYST Priscilla Marie NP LAB BODY FLUIDS AND STOOLS ORDERABLES Final Result [employer] (CLIA #:[id number]) [place] [address] * Dexa Axial Skeleton Bone Density 1 Or 2 Site (07/06/2022 2:30 PM ASSOCIATE FINANCIAL ANALYST) Anatomical Region Laterality Modality Body N/A Other 07/06/2022 9:02 PM ASSOCIATE FINANCIAL ANALYST Narrative 07/07/2022 8:13 AM ASSOCIATE FINANCIAL ANALYST EXAM DESCRIPTION: DEXA AXIAL SKELETON BONE DENSITY 1 OR MORE SITES REASON FOR STUDY: 67 y/o year old F with given history of screening. Postmenopausal Cherry Cutter/Model: [employer] (S/N [id number]) CLINICAL INFORMATION: Current height: 63 inches Maximum [...] Kenan Doran M.D. MF: DANIELLE Report ID: [id number] Reading Location: [id number] Procedure Note Kenan Doran MD - 07/07/2022 EXAM DESCRIPTION: DEXA AXIAL SKELETON BONE DENSITY 1 OR MORE SITES REASON FOR STUDY: 67 y/o year old F with given history ofscreening. Postmenopausal Cherry Cutter/Model: [employer] SL (S/N [id number]) CLINICAL INFORMATION: Current height: 63 inches Maximum [...] Kenan Doran M.D. MF: DANIELLE Report ID: [id number] Reading Location: [place] [address] Priscilla Marie GUIDE ALPINE IMG DXA PROCEDURES Final Re sult * [...] Requesting: ERIC SIEGEL M.D. Requesting Requesting ID: [id number] Attending Attending ID: [id number] Completed Time: 11/13/2013 2:16 PM Dictated Time: [...] Requesting: ERIC SIEGEL M.D. Requesting Requesting ID: [id number] Attending Attending ID: [id number] Completed Time: 11/13/2013 2:16 PM Dictated Time: [...] Maintenance Insurance [place] [address] MEDICARE [facility] MEDICARE SUPPLEMENT Member Subscriber Plan / Payer (Ef fective 2024-Present) Name:NesbittJacquie Relation to Subscriber:Self Name:NesbittJacquie Payer ID:[id number] Group ID:[id number] Type:COMMERCIAL Address: [address] [place] [id number] Care Teams Grinding Mill Operator Relationship Specialty Start Date End Date Tiffanie Agustin NP [address] [place] [address] [phone] PCP - General Family Medicine 02/04/25
--- OUTSIDE RECORDS SUMMARY | 2025-04-16 19:48 | XMS_ITS | Encounter Summary ---
Author Organization [employer] [facility] Address [address] [place] [address] Care Team Providers Care Privacy Specialist Name Role Phone Cristiane Parmar DO Primary Care Provider Giuliana vailable Encounter Details Date Type Department Care Team (Latest Contact Info) Description 01/25/2002 Outpatient Historical [facility] JAMES Shukla Jr., [place] MD NO ADDRESS ON FILE BREAST DISORDERS NEC (Primary Dx) Social History Tobacco Use Types Packs/Day Years Used Date Smoking Tobacco: Never Assessed Comments Unknown Sex and Gender Information Value Date Recorded Sex Assigned at Not on file Legal Sex Female 3:19 AM CHEMICAL SUPERVISOR Gender Identity Not on file Sexual Orientation Not on file documented as of this encounter Plan of Treatment Not on file documented as of this encounter Visit Diagnoses Diagnosis Other specified disorder of breast- Primary documented in this encounter Care Teams Privacy Specialist Relationship Specialty Start Date End Date Cristiane Parmar DO PCP - General Family Practice 05/07/24 03/07/25 documented as of this encounter
--- OUTSIDE RECORDS SUMMARY | 2025-04-16 19:48 | XMS_ITS | Encounter Summary ---
Author Organization [facility] Healthcare Address [address] [place] [address] Care Team Providers Care Nutrition Technician Name Role Phone Tiffanie Agustin NP Primary Care Provider [phone] Encounter Details Date Type Department Care Team (Late st Contact Info) Description 04/16/2025 Results Follow-Up [facility] Medical [facility] Cardiology [address] [facility] [address] [place] [phone] Dominique Ventura NP [address] [place] [address] Transthoracic Echo (TTE) Complete W [...] How often do you attend chur or buddhist services? More than 4 times per year 12/17/2022 Do you belong to any clubs o r organizations such as roman catholic groups, unions, fraternal or athletic groups, or [...] on file Legal Sex Female 2:03 PM FLY FINISHER Gender Identity Female 11/27/2022 8:14 AM CDT Sexual Orientation Straight 07/06/2022 12 :07 AM FLY FINISHER documented as of this encounter Plan of Treatment Not on file documented as of this encounter Visit Diagnoses Not on filedocumented in this encounter Care Teams Nutrition Technician Relationship Specialty Start Date End Date Tiffanie Agustin NP [address] [place] [phone] PCP - General Family Medicine 02/04/25 documented as of this encounter
--- OUTSIDE RECORDS SUMMARY | 2025-04-16 19:48 | XMS_ITS | Encounter Summary ---
Author Organization [facility] Healthcare Address [address] [place] [address] Care Team Providers Care Hydroblaster Name Role Phone Tiffanie Agustin NP Primary Care Provider [phone] Encounter Details Date Type Department Care Team ([facility] st Contact Info) Description 02/25/2025 Results Follow-Up [facility] Medical [facility] Family Medicine [address] [phone] Tiffanie Agustin [employer] ARCHITECT [address] [address] Hemoglobin A1c, Vitamin D 25 hydroxy, Thyroid Function [place], Additional followed-up results: 9 Social History Tobacco [...] often do you attend chur ch or congregational services? More than 4 times per year 12/17/2022 Do you belong to any clubs o r organizations such as nondenominational groups, unions, fraternal or athletic groups, or [...] place to sleep or slept in a skilled nursing (including now)? No 12/17/2022 PHQ-9 Answer Date [...] on file Legal Sex Female 2:03 PM STAKING TECHNICIAN Gender Identity Female 11/27/2022 8:14 AM CDT Sexual Orientation Straight 07/06/2022 12 :07 AM STAKING TECHNICIAN documented as of this encounter Plan of Treatment Not on file documented as of this encounter Visit Diagnoses Not on filedocumented in this encounter Care Teams Hydroblaster Relationship Specialty Start Date End Date Tiffanie Agustin, [employer] ARCH[employer]ECT [address] [place] [id number] PCP - General Family Medicine 02/04/25 documented as of this encounter
--- OUTSIDE RECORDS SUMMARY | 2025-04-16 19:48 | XMS_ITS | Encounter Summary ---
Author Organization [facility] Address Formerly [facility] [place] [address] Care Team Providers Care Linux Architect Name Role Phone Radha Vanegas MD Primary Care Provider [phone] Encounter Details Date Type Department Care Team (Late st Contact Info) Description 04/30/2024 [facility] Message Enc [facility] Medical Group Orthopedic Surgery-[facility] [address] [place], [place] [phone] [place] [address] [place], [place] [phone] Help with Knee pain while waiting for [...] Sex Assigned at Female 07/03/2024 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 Answer Date of Assessment Author Status No 07/13/2022 2:00 PM ASPHALT MACHINE OPERATOR Activ e * Do you have serious [...] 2:31 PM Shukri Estes RN Active * Millard Suicide Severity Rating Scale (Screener/Recent Self-Report) Question [...] documented as of this encounter Care Teams Linux Architect Relationship Specialty Start Date End Date Radha Vanegas MD [address] [place] [address] PCP - General FAMILY PRACTICE 11/01/23 documented as of this encounter
--- OUTSIDE RECORDS SUMMARY | 2025-04-16 19:49 | XMS_ITS | Clinical Summary ---
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 Status post total knee replacement, left 023 Overview (10/18/2023): 07/13/2022 Last Assessment & Plan: Our recommendation at this time is gradually increase her activities as tolerated. We'll give her position and directed exercises. At her request, we'll see her back as needed. Allergies 06/08/2022 Overview (10/18/2023): Added automatically from request for surgery [id number] Primary osteoarthritis of right knee 06/08/2022 Overview (10/18/2023): Last Assessment & Plan: Scheduled for surgery with Dr. Magaña 07/13/22. Added automatically from request for surgery [id number] Last Assessment & Plan: We discussed the [...] 07/13/2021 Added automatically from request for surgery [id number] Bilateral primary osteoarthritis of knee 021 Overview [...] on file Legal Sex Female 3:19 AM COUNSELOR AID Gender Identity Not on file Sexual Orientation Not on file Last Filed Vital Signs Vital Sign Reading Time Taken Comments Blood Pressure 118/66 05/07/2024 2:44 PM COUNSELOR AID Pulse 84 05/07/2024 2:44 PM COUNSELOR AID Temperature 36.9 C (98.4 F) 05/07/2024 2:44 PM COUNSELOR AID Respiratory Rate 16 06/16/2023 9:30 AM COUNSELOR AID Oxygen Saturation 97% 05/07/2024 2:44 PM COUNSELOR AID Inhaled Oxygen Concentration - - Weight 68 kg (150 lb) 05/07/2024 2:44 PM COUNSELOR AID Height 160 cm (5' 3) 05/07/2024 2:44 PM COUNSELOR AID Body Mass Index 26.57 05/07/2024 2:44 PM COUNSELOR AID Plan of Treatment Health Maintenance Due Date [...] ASSESSMENT: BI-RADS 1 - Negative DICTATION LOCATION: [facility] 11/04/2023 10:04 AM CDT BILATERAL SCREENING [...] BI-RADS 1 - Negative DICTATION LOCATION: [facility] us Gómez Shukla Jr., MD MAMMO ORDERABLES Final R esult * XR DEXA BONE DENSITY AXIAL 1 OR MORE SITES (11/14/2013) Anatomical Region Laterality Modality Other us Abstract Provider DIAGNOSTIC IMAGING ORDERABLES Final Result from Last 3 Months or Most Recently Relevant to Health Maintenance Insurance MEDICARE PART A AND B [facility] SUPP
--- NOTE | 2025-04-16 20:20 | ED_ITS ---
HPI - Female Genitourinary General Chief complaint: Urogenital-Female Stated complaint: kidney stone diagnosed Time Seen by Provider: 04/16/25 19:20 Source: patient Mode of arrival: ambulatory Limitations: no limitations History of Present Illness HPI Narrative: This is a 69-year-old female with history of depression, fibromyalgia, prediabetes, GERD, hyperlipidemia who presents to the ED for flank pain. Mandeep blanton states that for the past few days, she has been having left flank pain. She was seen in the ED for this 2 days ago was diagnosed with a kidney stone. She was afraid to take the medicines that she was prescribed because she looked them up and thought that they may cause her blood pressure to drop so she only tried taking Advil and Motrin at home with minimal relief prompting her to come to the ED for further evaluation. She reports continued left flank pain at this time with intermittent nausea but no vomiting. Related Data Home Medications ?Medication ?Instructions ?Recorded ?Confirmed ?Last Taken ?Type ezetimibe 10 mg tablet 10 mg PO DAILY 06/12/2311/18 Unknown History Allergies Allergy/AdvReac Type Severity Reaction Status Date / Time indomethacin (From Indocin) Allergy Unknown Unknown Verified 04/16/25 18:07 duloxetine AdvReac Severe Hallucinati Verified 04/16/25 18:07 ng Review of Systems Review of Systems: Gen.: Denies fevers or chills Eyes: Denies eye pain or visual change ENT: Denies congestion Respiratory: Denies shortness of breath or cough CV: Denies chest pain or palpitations GI: Denies abdominal pain nausea, emesis or diarrhea denies burning, urgency, frequency or hematuria Musculoskeletal: Denies back pain or muscle pain Neuro: Denies numbness, tingling, weakness or focal weakness Skin: Denies rash Except as documented, all other systems reviewed and negative [facility] Past Medical History Medical History Mixed hyperlipidemia Seasonal allergies Depression Histronic and borderline features per psychiatry Anxiety GERD (gastroesophageal reflux disease) Fibromyalgia Surgical History Surgical History History of knee replacement Social History Social History Smoking status: Never smoker Exam Narrative: APPEARANCE: Mild distress, nontoxic, resting in bed EYES: EOMI HEENT: Normocephalic, atraumatic, OMM RESPIRATORY: No respiratory distress Clear to auscultation bilaterally with no rhonchi wheezing or rales. CARDIOVASCULAR: Regular rate and rhythm without murmurs rubs or gallops. ABDOMINAL: Soft, CVA tenderness on the left with mild left lower quadrant tenderness, nondistended, no rebound or guarding MUSCULOSKELETAl: Moves all extremities. No clubbing, cyanosis or edema. NEURO: Awake and alert. Following commands, speech normal, no focal deficits SKIN:: Warm, dry. No rashes lesions or abrasions PSYCHIATRIC: Normal affect/mood, Course Vital Signs Vital signs: Vital Signs Temperature 98.4 F 04/16/25 18:03 Pulse Rate 80 04/16/25 18:03 Respiratory Rate 16 04/16/25 18:03 Blood Pressure 155/73 H 04/16/25 18:03 Pulse Oximetry 97 04/16/25 18:03 Oxygen Delivery Room Air 04/16/25 18:03 Temperature 98.4 F 04/16/25 18:03 Pulse Rate 72 04/16/25 19:20 Respiratory Rate 18 04/16/25 19:20 Blood Pressure 122/72 04/16/25 19:20 Pulse Oximetry 98 04/16/25 19:20 Oxygen Delivery Room Air 04/16/25 19:20 MDM - Female Genitourinary MDM Narrative Medical decision making narrative: 69-year-old female Presenting for left flank pain. On initial evaluation patient was in no acute distress afebrile, hemodynamic stable. Differentials include but are not limited to: UTI, referred ureterolithiasis come infected kidney stone, musculoskeletal pain Notable exam findings: CVA tenderness on the left with mild left lower quadrant tenderness to palpation Notable lab findings: UA showed no evidence of UTI On further discussion with the patient, she had not been taking the medications as prescribed as she was concerned that the Toradol would cause her blood pressure to drop. I educated patient that this has no affects on her blood pressure. She took a half dose here with some mild improvement of her symptoms. She was educated further on how to take the medications. She was advised to call urology tomorrow to schedule appointment. Patient was agreeable to this plan. Given strict return precautions. Medical Records Attestation: I reviewed the patient's medical records. Medical records narrative: patient seen here on 04/14, found to have a 2 mm distal ureteral calculus with mild hydronephrosis and hydroureter. she was discharged home Toradol, Flomax, Zofran. Lab Data Attestation: I reviewed the patient's lab results. Labs: Lab Results 04/16/25 Range/Units 19:25 Urine Color Yellow (Yellow) Urine Appearance Clear (Clear) Urine pH 5.0 (5.0-9.0) Ur Specific Taylor 1.016 (1.001-1.035) Urine Protein Negative (Negative) mg/dL Urine Glucose (UA) 2+ H (Negative) mg/dL Urine Ketones Negative (Negative) mg/dL Ur Blood (Man) 2+ H (Negative) Urine Nitrate Negative (Negative) Urine Bilirubin Negative (Negative) Urine Urobilinogen 0.2 (<2.0) mg/dL Leukocyte Esterase Rfl Trace H (Negative) ELIZ/UL Urine RBC 3-5 H (0-2) /hpf Urine WBC 0-5 (0-3) /hpf Ur Squamous Epith Cells None seen (Few) /hpf Urine Bacteria None seen /hpf Urine Casts 0-2 Discharge Plan Discharge Clinical Impression: Ureterolithiasis Patient Disposition: Home Condition: Stable Instructions: Antibiotic Form, Kidney Stones (ED) Additional Instructions: take your Toradol, Flomax, Zofran as previously prescribed. Call the urology clinic in the morning to schedule appointment. Return to the ED for new or worsening symptoms. Patient Language: Yi Prescriptions: No Action ezetimibe 10 mg tablet 10 mg PO DAILY venlafaxine 75 mg capsule,extended release 24hr 225 mg PO DAILY Qty: 1 0RF tamsulosin [Flomax] 0.4 mg capsule 0.4 mg PO DAILY Qty: 20 0RF ketorolac 10 mg tablet 10 mg PO Q8H PRN (Reason: pain) 5 Days Qty: 20 0RF Rx Instructions: maximum total duration of 5 days from all oral, intranasal, or parenteral formulations ondansetron 4 mg tablet,disintegrating 4 mg PO Q8H PRN (Reason: nausea and vomiting) Qty: 10 0RF pantoprazole 20 mg tablet,delayed release (DR/EC) 20 mg PO QHS Qty: 90 1RF metaxalone 800 mg tablet 800 mg PO TID PRN (Reason: muscle pain) Qty: 90 0RF Follow-up/Referrals: aTtiana Landers MD [Physician, Urology] Vamsi,PER Moreno [Primary Care Provider, Unknown]
== END 2025-04-16 20:36 | disposition home or self-care (01) ==
PROVIDERS: Emergency Provider Student in an Organized Health Care Education/Training Program; PCP Family Medicine
DX: N13.2 Hydronephrosis with renal and ureteral calculous obstruction (principal); E78.2 Mixed hyperlipidemia; R73.03 Prediabetes; M79.7 Fibromyalgia; K21.9 Gastro-esophageal reflux disease without esophagitis; F32.A Depression, unspecified; F41.9 Anxiety disorder, unspecified; Z96.659 Presence of unspecified artificial knee joint; Z90.710 Acquired absence of both cervix and uterus; Z79.899 Other long term (current) drug therapy
CPT/HCPCS: 81001; 99283